=== PATIENT | female | born 1940 | race Caucasian/White ===

== ENCOUNTER 2019-01-08 09:11 | Inpatient (IN) | payer MEDICARE, BC ==
[~2019-01-08] VITALS: Ht 160 cm; Wt 79.0 kg
[2019-01-08] VITALS (7 sets, daily range): BP systolic 108–133; BP diastolic 53–70
[2019-01-08] MEDS: dilTIAZem INJ 125 MG in IV DEXTROSE 5% 100ML 100 ML IV PRN ×2 (09:44→20:26)
[2019-01-08] MEDS ORDERED: dilTIAZem IV PUSH 25 MG/5 ML VIAL IVP ONE (09:45)
--- NOTE | 2019-01-08 09:48 | PHYS DOC ---
Past Medical History Past Medical History: Other Additional Past Medical Histor: afib Past Surgical History: Other Additional Past Surgical Histo: bilat knees, cabg Alcohol Use: None Drug Use: None Adult General Chief Complaint Chief Complaint: SHORTNESS OF BREATH HPI HPI Patient is a 78-year-old female who presents with complaint of progressively increasing shortness of breath with palpitations, fatigue and generalized weakness. She also complains of dizziness. Patient does report to a history of atrial fibrillation. She denies any chest pain. She states the shortness of breath is worsened with exertion. She denies any fever but does admit to a cough that is sometimes productive. Patient's son indicates that cough sounds much more wet than usual. Patient states that nothing is improving symptoms.[] Review of Systems Review of Systems Constitutional: Denies fever or chills [] Respiratory: Positive cough and shortness of breath [] Cardiovascular: No additional information not addressed in HPI [] GI: Denies abdominal pain, nausea, vomiting or diarrhea [] Neurologic: Denies headache, focal weakness or sensory changes [] All other systems were reviewed and found to be within normal limits, except as documented in this note. Current Medications Current Medications Current Medications Medications (Trade) Dose Ordered Sig/Obdulio Start Time Stop Time Status Last Admin Dose Admin Diltiazem HCl (Cardizem Iv Push) 10 mg 1X ONCE 01/08/19 09:45 01/08/19 09:46 DC 01/08/19 09:38 10 MG Diltiazem HCl 125 mg/Dextrose 125 ml @ 5 mls/hr CONT PRN 01/08/19 09:45 01/08/19 09:44 5 MLS/HR Furosemide (Lasix) 40 mg 1X ONCE 01/08/19 11:00 01/08/19 11:01 DC Ketorolac Tromethamine (Toradol 30mg Vial) 30 mg 1X ONCE 01/08/19 10:30 01/08/19 10:31 DC 01/08/19 10:22 30 MG Allergies Allergies Allergies Coded Allergies Type Severity Reaction Last Updated Verified oxaprozin Allergy Intermediate itching 01/08/19 Yes tetanus and diphtheria toxoids Allergy Intermediate anaphalaxis 01/08/19 Yes Sulfa (Sulfonamide Antibiotics) Allergy Mild rash 01/08/19 Yes Physical Exam Physical Exam Constitutional: Well developed, well nourished, no acute distress, non-toxic appearance. [] HENT: Normocephalic, atraumatic, bilateral external ears normal, oropharynx moist, no oral exudates, nose normal. [] Eyes: PERRLA, EOMI, conjunctiva normal, no discharge. [] Neck: Normal range of motion, no tenderness, supple, no stridor. [] Cardiovascular: Tachycardic rate with irregular rhythm[] Lungs & Thorax: Fine rhonchi are noted bilaterally to auscultation [] Abdomen: Bowel sounds normal, soft, no tenderness. [] Skin: Warm, dry, no erythema, no rash. [] Extremities: No tenderness, no cyanosis, no clubbing, ROM intact, no edema. [] Neurologic: Alert and oriented X 3, no focal deficits noted. [] Current Patient Data Vital Signs Vital Signs Date Time Temp Pulse Resp B/P (MAP) Pulse Ox O2 Delivery O2 Flow Rate FiO2 01/08/19 10:52 92 18 98/64 (75) 92 Room Air 2.0 01/08/19 09:16 98.2 98.2 Lab Values Laboratory Tests Test 01/08/19 09:32 White Blood Count 5.7 x10^3/uL (4.0-11.0) Red Blood Count 4.78 x10^6/uL (3.50-5.40) Hemoglobin 13.9 g/dL (12.0-15.5) Hematocrit 42.6 % (36.0-47.0) Mean Corpuscular Volume 89 fL (79-100) Mean Corpuscular Hemoglobin 29 pg (25-35) Mean Corpuscular Hemoglobin Concent 33 g/dL (31-37) Red Cell Distribution Width 16.3 % (11.5-14.5) H Platelet Count 146 x10^3/uL (140-400) Neutrophils (%) (Auto) 54 % (31-73) Lymphocytes (%) (Auto) 33 % (24-48) Monocytes (%) (Auto) 10 % (0-9) H Eosinophils (%) (Auto) 2 % (0-3) Basophils (%) (Auto) 1 % (0-3) Neutrophils # (Auto) 3.1 x10^3/uL (1.8-7.7) Lymphocytes # (Auto) 1.9 x10^3/uL (1.0-4.8) Monocytes # (Auto) 0.6 x10^3/uL (0.0-1.1) Eosinophils # (Auto) 0.1 x10^3/uL (0.0-0.7) Basophils # (Auto) 0.1 x10^3/uL (0.0-0.2) Sodium Level 143 mmol/L (136-145) Potassium Level 4.5 mmol/L (3.5-5.1) Chloride Level 106 mmol/L (98-107) Carbon Dioxide Level 28 mmol/L (21-32) Anion Gap 9 (6-14) Blood Urea Nitrogen 25 mg/dL (7-20) H Creatinine 0.8 mg/dL (0.6-1.0) Estimated GFR (Cockcroft-Gault) 69.2 BUN/Creatinine Ratio 31 (6-20) H Glucose Level 161 mg/dL (70-99) H Calcium Level 9.8 mg/dL (8.5-10.1) Magnesium Level 1.9 mg/dL (1.8-2.4) Total Bilirubin 0.5 mg/dL (0.2-1.0) Aspartate Amino Transferase (AST) 48 U/L (15-37) H Alanine Aminotransferase (ALT) 68 U/L (14-59) H Alkaline Phosphatase 71 U/L (46-116) Troponin I Quantitative < 0.017 ng/mL (0.000-0.055) PQ-Vgg-P-Type Natriuretic Peptide 4010 pg/mL (0-449) H Total Protein 7.0 g/dL (6.4-8.2) Albumin 3.6 g/dL (3.4-5.0) Albumin/Globulin Ratio 1.1 (1.0-1.7) Thyroid Stimulating Hormone (TSH) 2.428 uIU/mL (0.358-3.74) Laboratory Tests 01/08/19 09:32 Laboratory Tests 01/08/19 09:32 EKG EKG [] Interpretation Time: EKG demonstrates atrial fibrillation with rate of 136. Radiology/Procedures Radiology/Procedures [] Impressions: PROCEDURE: PORTABLE CHEST 1V EXAM: Chest, single view. HISTORY: Palpitations. Shortness of breath. COMPARISON: None. FINDINGS: A frontal view of the chest is obtained. There is no infiltrate, pleural effusion or pneumothorax. There is a prominent cardiac silhouette, a component of which is due to portable technique. There is evidence of prior median sternotomy. There is incidental decreased right subacromial space due to a chronic right rotator cuff tear. IMPRESSION: No acute pulmonary finding. Electronically signed by: Wendy Chao MD (01/08/2019 9:48 AM) [facility] Course & Med Decision Making Course & Med Decision Making Pertinent Labs and Imaging studies reviewed. (See chart for details) [] Dragon Disclaimer Dragon Disclaimer This electronic medical record was generated, in whole or in part, using a voice recognition dictation system. Departure Departure Impression: Primary Impression: Atrial fibrillation with RVR Additional Impression: CHF (congestive heart failure) Disposition: ADMITTED INPATIENT Admitting Physician: Jeet Block Condition: IMPROVED Referrals: JEET BLOCK MD (PCP) Problem Qualifiers Additional Impression: CHF (congestive heart failure) Heart failure type: unspecified Heart failure chronicity: unspecified Qualified Codes: I50.9 - Heart failure, unspecified VERNELL GERMAIN Jr. DO Jan 08, 2019 09:48
[2019-01-08 09:50] LABS: BASO # 0.1 x10^3/uL (0.0-0.2); BASO % 1 % (0-3); EOS # 0.1 x10^3/uL (0.0-0.7); EOS % 2 % (0-3); HEMATOCRIT 42.6 % (36.0-47.0); HEMOGLOBIN 13.9 g/dL (12.0-15.5); LYMPH # 1.9 x10^3/uL (1.0-4.8); LYMPH % 33 % (24-48); MEAN CORPUSCULAR HEMOGLOBIN 29 pg (25-35); MEAN CORPUSCULAR HGB CONC 33 g/dL (31-37); MEAN CORPUSCULAR VOLUME 89 fL (79-100); MONO # 0.6 x10^3/uL (0.0-1.1); MONO % 10 % (0-9); NEUT # 3.1 x10^3/uL (1.8-7.7); NEUT % 54 % (31-73); PLATELET COUNT 146 x10^3/uL (140-400); RED BLOOD COUNT 4.78 x10^6/uL (3.50-5.40); RED CELL DISTRIBUTION WIDTH 16.3 % (11.5-14.5); WHITE BLOOD COUNT 5.7 x10^3/uL (4.0-11.0)
--- NOTE | 2019-01-08 09:51 | RAD ---
EXAM: Chest, single view. HISTORY: Palpitations. Shortness of breath. COMPARISON: None. FINDINGS: A frontal view of the chest is obtained. There is no infiltrate, pleural effusion or pneumothorax. There is a prominent cardiac silhouette, a component of which is due to portable technique. There is evidence of prior median sternotomy. There is incidental decreased right subacromial space due to a chronic right rotator cuff tear. IMPRESSION: No acute pulmonary finding. Electronically signed by: Wendy Chao MD (01/08/2019 9:48 AM) [facility]
[2019-01-08 10:06] LABS: CALCIUM 9.8 mg/dL (8.5-10.1); CREATININE 0.8 mg/dL (0.6-1.0); GFR 69.2; POTASSIUM 4.5 mmol/L (3.5-5.1)
[2019-01-08 10:10] LABS: ALBUMIN 3.6 g/dL (3.4-5.0); ALBUMIN/GLOBULIN RATIO 1.1 (1.0-1.7); MAGNESIUM 1.9 mg/dL (1.8-2.4); TOTAL BILIRUBIN 0.5 mg/dL (0.2-1.0)
[2019-01-08] MEDS ORDERED: KETOROLAC 30 MG/ML VIAL. IV ONE (10:30)
[2019-01-08] MEDS ORDERED: FUROSEMIDE 40 MG/4 ML VIAL. IVP ONE (11:00)
--- NOTE | 2019-01-08 11:39 | EKG ---
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
[2019-01-08] MEDS ORDERED: LIRA0.6P2 SQ (14:05)
[2019-01-08] MEDS: CYCLOBENZAPRINE 10 MG TABLET. PO PRN (18:30)
[2019-01-08] MEDS ORDERED: ANTI-COAG MONITOR BY PHARMACY. MC PRN (20:15)
[2019-01-08] MEDS ORDERED: HEPARIN 25,000UTS/500ML PREMIX 500 ML IV PRN (20:15)
[2019-01-08] MEDS ORDERED: HEPARIN for IV BOLUS 10,000 UNIT/10 ML VIAL. IV PRN (20:15)
[2019-01-09] VITALS (13 sets, daily range): BP systolic 90–119; BP diastolic 45–88
[2019-01-09 03:21] LABS: BASO # 0.1 x10^3/uL (0.0-0.2); BASO % 1 % (0-3); EOS # 0.2 x10^3/uL (0.0-0.7); EOS % 3 % (0-3); HEMATOCRIT 39.7 % (36.0-47.0); HEMOGLOBIN 12.8 g/dL (12.0-15.5); LYMPH # 1.6 x10^3/uL (1.0-4.8); LYMPH % 28 % (24-48); MEAN CORPUSCULAR HEMOGLOBIN 29 pg (25-35); MEAN CORPUSCULAR HGB CONC 32 g/dL (31-37); MEAN CORPUSCULAR VOLUME 90 fL (79-100); MONO # 0.6 x10^3/uL (0.0-1.1); MONO % 10 % (0-9); NEUT # 3.3 x10^3/uL (1.8-7.7); NEUT % 58 % (31-73); PLATELET COUNT 123 x10^3/uL (140-400); RED BLOOD COUNT 4.43 x10^6/uL (3.50-5.40); RED CELL DISTRIBUTION WIDTH 16.2 % (11.5-14.5); WHITE BLOOD COUNT 5.8 x10^3/uL (4.0-11.0)
[2019-01-09 04:37] LABS: CALCIUM 9.1 mg/dL (8.5-10.1); CREATININE 0.8 mg/dL (0.6-1.0); GFR 69.2; POTASSIUM 4.2 mmol/L (3.5-5.1)
--- NOTE | 2019-01-09 08:57 | PDOC ---
Provider Note Provider Note [id number] HILARIO JASSO MD Jan 09, 2019 08:57
--- NOTE | 2019-01-09 09:16 | HP ---
ADMIT DATE: CHIEF COMPLAINT: Atrial fibrillation. HISTORY OF PRESENT ILLNESS: A 78-year-old white female, patient of Dr. Arboleda has, noninsulin-dependent diabetes and history of recurrent atrial fibrillation, last episode about a month ago. She has seen Dr. Berry in the past and Dr. Ledezma once as well, but takes no meds of any kind for this problem. She has not been told the etiology of the atrial fibrillation and came in short of breath and is feeling better at this time. She has had an aortic valve replacement and a cardiac bypass 7 or 8 year ago at [facility], but does not take aspirin for some reason or any other cardiac meds. PAST MEDICAL HISTORY: Knee replacement. No other serious medical problems. ALLERGIES: SULFA LISTED. SOCIAL HISTORY: She denies alcohol use. Nonsmoker. She is . She is not physically active. FAMILY HISTORY: Unremarkable. REVIEW OF SYSTEMS: No other complaints. OBJECTIVE: ENT: All within normal limits. NECK: No masses, nodes or bruits. LUNGS: Clear. CARDIOVASCULAR: Irregular rate consistent with atrial fibrillation, rate is in the 90-120 range. No murmur is heard. ABDOMEN: Soft, benign and nontender. EXTREMITIES: Reduced pedal pulses bilaterally. No edema. Nail beds are pink. No active joint or skin lesions are seen. NEUROLOGIC: Physiologic and nonfocal. ASSESSMENT: Recurrent atrial fibrillation, rate controlled now with diltiazem. Etiology is unclear at this time. She also has a history of aortic valve replacement and coronary artery bypass surgery. Her TSH was normal. PLAN: We will do an echo. We will start Xarelto in place of heparin. Cardiac consultation pending as well. Continue IV diltiazem, pending the consideration of something like amiodarone. HILARIO JASSO MD DR: STEFANIE/pamela JOB#: [id number] / [id number]
--- NOTE | 2019-01-09 09:46 | PDOC2 ---
ROSE FERRARA [employer]KER 01/09/19 0946: CARDIAC CONSULT DATE OF CONSULT Date of Consult DATE: 01/09/19 TIME: 09:45 REASON FOR CONSULT Reason for Consult: AFIB with RVR, CHF REFERRING PHYSICIAN Referring Physician: Dr. Pratt SOURCE Source: Chart review, Patient HISTORY OF PRESENT ILLNESS HISTORY OF PRESENT ILLNESS This is a 78 yo female, with a history of PAFIB, CAD s/p CABG, aortic valve replacement, and DMII, who presented secondary to shortness of breath and palpitations. Patient reports she can generally tell when she is in AFIB. Has had intermittent palpitations for the last month. Has been constant for the last 3 days. Associated with shortness of breath, orthopnea. Was dizzy yesterday. No LE edema, chest pain, or nausea/vomiting. Has woke up diaphoretic the last couple of nights. Despite medical history, only takes Victoza at home. No rate control therapy, OAC, ASA, or statin. Was noted in AFIB with RVR upon arrival. Cardizem bolus and gtt was initiated. Remains in AFIB with controlled rate. PAST MEDICAL HISTORY Cardiovascular: AFIB, CAD, Hyperlipidemia, Valve insufficiency GI: GERD Musculoskeletal: Osteoarthritis Endocrine: Diabetes PAST SURGICAL HISTORY Past Surgical History: CABG, Total knee replacement (bilateral ), Other (aortic valve replacement ) FAMILY HISTORY Family History: Diabetes SOCIAL HISTORY Smoke: No ALCOHOL: rare Drugs: None Lives: with Family CURRENT MEDICATIONS CURRENT MEDICATIONS Current Medications Medications (Trade) Dose Ordered Sig/Obdulio Route PRN Reason Start Time Stop Time Status Last Admin Dose Admin Ketorolac Tromethamine (Toradol 30mg Vial) 30 mg 1X ONCE IV 01/08/19 10:30 01/08/19 10:31 DC 01/08/19 10:22 Furosemide (Lasix) 40 mg 1X ONCE IVP 01/08/19 11:00 01/08/19 11:01 DC 01/08/19 12:37 Cyclobenzaprine HCl (Flexeril) 5 mg PRN TID PRN PO MUSCLE SPASMS 01/08/19 18:30 01/08/19 18:30 Heparin Sodium/ Dextrose 500 ml @ 19.584 mls/ hr CONT PRN IV SEE COMMENTS 01/08/19 20:15 01/09/19 08:55 DC 01/08/19 20:54 Heparin Sodium (Porcine) (Heparin Sodium) 2,050 unit PRN Q6HRS PRN IV FOR UFH LEVEL LESS THAN 0.2 01/08/19 20:15 01/09/19 08:55 DC 01/09/19 03:41 ALLERGIES ALLERGIES: Coded Allergies: oxaprozin (Verified Allergy, Intermediate, itching, 01/08/19) tetanus and diphtheria toxoids (Verified Allergy, Intermediate, anaphalax is, 01/08/19) Sulfa (Sulfonamide Antibiotics) (Verified Allergy, Mild, rash, 01/08/19) ROS Review of System 14 point ROS conducted with pertinent positives noted above in HPI. PHYSICAL EXAM General: Alert, Oriented X3, Cooperative, No acute distress HEENT: Atraumatic, Mucous membr. moist/pink Lungs: Other (diminished ) Heart: Other (AFIB- rate near 90) Abdomen: Soft, No tenderness Extremities: No edema, Normal pulses Skin: No significant lesion Neuro: Sensation intact Psych/Mental Status: Mental status NL, Mood NL MUSCULOSKELETAL: Osteoarthritic changes both hands VITALS/I&O VITALS/I&O: Vital Signs Date Time Temp Pulse Resp B/P (MAP) Pulse Ox O2 Delivery O2 Flow Rate FiO2 01/09/19 07:52 97.5 92 20 115/56 (75) 92 Nasal Cannula 2.0 97.5 I & O 01/08/19 01/08/19 01/09/19 15:00 23:00 07:00 Intake Total 250 ml 416 ml Balance 250 ml 416 ml LABS Lab: Laboratory Tests Test 01/08/19 15:00 01/08/19 17:25 01/09/19 03:15 Troponin I Quantitative 0.017 ng/mL (0.000-0.055) < 0.017 ng/mL (0.000-0.055) White Blood Count 5.8 x10^3/uL (4.0-11.0) Red Blood Count 4.43 x10^6/uL (3.50-5.40) Hemoglobin 12.8 g/dL (12.0-15.5) Hematocrit 39.7 % (36.0-47.0) Mean Corpuscular Volume 90 fL (79-100) Mean Corpuscular Hemoglobin 29 pg (25-35) Mean Corpuscular Hemoglobin Concent 32 g/dL (31-37) Red Cell Distribution Width 16.2 % (11.5-14.5) H Platelet Count 123 x10^3/uL (140-400) L Neutrophils (%) (Auto) 58 % (31-73) Lymphocytes (%) (Auto) 28 % (24-48) Monocytes (%) (Auto) 10 % (0-9) H Eosinophils (%) (Auto) 3 % (0-3) Basophils (%) (Auto) 1 % (0-3) Neutrophils # (Auto) 3.3 x10^3/uL (1.8-7.7) Lymphocytes # (Auto) 1.6 x10^3/uL (1.0-4.8) Monocytes # (Auto) 0.6 x10^3/uL (0.0-1.1) Eosinophils # (Auto) 0.2 x10^3/uL (0.0-0.7) Basophils # (Auto) 0.1 x10^3/uL (0.0-0.2) Heparin Anti-Xa Act, Unfractionated 0.16 IU/mL (0.30-0.70) L Sodium Level 142 mmol/L (136-145) Potassium Level 4.2 mmol/L (3.5-5.1) Chloride Level 106 mmol/L (98-107) Carbon Dioxide Level 28 mmol/L (21-32) Anion Gap 8 (6-14) Blood Urea Nitrogen 29 mg/dL (7-20) H Creatinine 0.8 mg/dL (0.6-1.0) Estimated GFR (Cockcroft-Gault) 69.2 Glucose Level 168 mg/dL (70-99) H Calcium Level 9.1 mg/dL (8.5-10.1) Laboratory Tests 01/09/19 03:15 Laboratory Tests 01/09/19 03:15 ECHOCARDIOGRAM ECHOCARDIOGRAM <Conclusion> Technically difficult study. The left ventricle is normal size. The left ventricular systolic function is normal and the ejection fraction is within normal range. The Ejection Fraction is 55-60%. There is mild asymmetric left ventricular hypertrophy. Calculated aortic valve maximum pressure gradient of 41 mmHg and mean pressure gradient of 23 mmHg. Doppler and Color Flow revealed mild aortic regurgitation. Technically difficult study with the patient's prosthetic aortic valve functioning with mild to moderate stenosis. Doppler and Color Flow revealed mild mitral regurgitation. Doppler and Color Flow revealed mild tricuspid regurgitation. The PA pressure was estimated at 30 mmHg. DATE: 10/23/15 1507 STRESS TEST STRESS TEST Conclusion 1. Regadenoson cardioisotope stress test did not show any evidence of ischemia or infarct. 2. Normal left ventricular systolic function with ejection fraction calculated at 70%. 3. Low risk for cardiac events. DATE: 10/24/15 1219 ASSESSMENT/PLAN ASSESSMENT/PLAN 1. PAFIB with RVR; remains in AFIB, but rate controlled on Cardizem gtt. Xarelto for stroke prevention added 2. Mild acute probable diastolic HF secondary to RVR 3. CAD s/p CABG 2008. MPI 2015 without evidence of ischemia or infarct 4. S/p Aortic valve replacement; bioprosthetic 5. Hyperlipidemia 6. Diabetes, II Recommendations Echo to assess LV systolic function, assess aortic valve TSH, lipids Add metoprolol for rate control. Titrate off Cardizem gtt Xarelto for stroke prevention Consider NAYANA with CV. R/b/a discussed with patient and she is agreeable. Will d/w primary cardiology Will start Amiodarone for rhythm maintenance; short-term therapy JOHNATHAN PURCELL MD 01/09/19 1644: CARDIAC CONSULT ASSESSMENT/PLAN ASSESSMENT/PLAN Pt. seen and examined. Agree with above VICE PRESIDENT OF PROCUREMENT note. Discussed r/b/a to NAYANA/CVN, patient and family wish to proceed. Still hypoxic. Check ABG. Lasix for now. ROSE FERRARA APRN Jan 09, 2019 09:46 JOHNATHAN PURCELL MD Jan 09, 2019 16:44
[2019-01-09 10:15] LABS: CHOLESTEROL/HDL RATIO 3.5
--- NOTE | 2019-01-09 12:08 | NUR ---
SS following for discharge planning. SS reviewed pt chart. Pt is from home with spouse and is currently requiring oxygen. SS will continue to follow for discharge planning.
[2019-01-09] MEDS: RIVAROXABAN 10 MG TABLET. PO SCH (12:41)
[2019-01-09] MEDS: METOPROLOL TART IMMED RELEASE 25 MG TABLET. PO SCH ×2 (12:41→20:12)
[2019-01-09] MEDS ORDERED: LIDOCAINE 2% TOPICAL JELLY 5GM TUBE. TP ONE (16:30)
[2019-01-09] MEDS ORDERED: BENZOCAINE ONE 20% MUCOSAL SPRAY. MM (16:30)
[2019-01-09] MEDS ORDERED: 0.9 % SODIUM CHLORIDE 10 ML DISP.SYRIN. IV PRN ×2 (16:30)
[2019-01-09] MEDS ORDERED: FUROSEMIDE 40 MG/4 ML VIAL. IVP ONE (16:30)
[2019-01-09] MEDS ORDERED: LIDOCAINE 2% VISCOUS 15 ML SOLUTION. MM ONE (16:30)
[2019-01-09] MEDS ORDERED: AMIODARONE 900 MG in IV DEXTROSE 5% 500 ML IV PRN (16:30)
[2019-01-09] MEDS ORDERED: AMIODARONE 150 MG in IV DEXTROSE 5% 100ML 100 ML IV ONE (17:00)
[2019-01-09 17:07] LABS: BASE EXCESS ABG 2 mmol/L (-3-3); HCO3 ABG 26 mmol/L (21-28); PCO2 ABG 40 mmHg (35-46); PO2 ABG 56 mmHg (65-108); SAT O2 ABG 89 % (92-99)
[2019-01-09 17:09] LABS: FIO2 ABG 28
[2019-01-09] MEDS: TEMAZEPAM 15 MG CAPSULE PO PRN (20:11)
[2019-01-10] VITALS (8 sets, daily range): BP systolic 92–132; BP diastolic 38–70
[2019-01-10 00:10] LABS: HEMOGLOBIN A1C 6.6 % (4.8-5.6)
[2019-01-10] MEDS ORDERED: LIDOCAINE 2% TOPICAL JELLY 5GM TUBE. TP ONE ×2 (07:30→10:30)
[2019-01-10] MEDS ORDERED: LIDOCAINE 2% VISCOUS 15 ML SOLUTION. SWSW ONE (07:30)
[2019-01-10] MEDS ORDERED: BENZOCAINE ONE 20% MUCOSAL SPRAY. MM ×2 (07:30→10:30)
[2019-01-10] MEDS ORDERED: FLU VAX QS 2019-20 (36MOS+)/PF 0.5 ML SYRINGE. VAX IM ONE (08:00)
[2019-01-10] MEDS: METOPROLOL TART IMMED RELEASE 25 MG TABLET. PO SCH ×2 (08:26→21:19)
--- NOTE | 2019-01-10 08:59 | PDOC ---
Provider Note Provider Note still af w/ variable rate- on amio and metradha, xarelto now- for willis /poss cardioversiion today HILARIO JASSO MD Jan 10, 2019 08:59
--- NOTE | 2019-01-10 09:20 | CARD ---
MR#: [id number] Date of Study: 01/09/2019 Ordering Physician: HILARIO AJSSO, Referring Physician: HILARIO JASSO, Tech: Izzy Bearden APPROVED REPORT EXAM: Two-dimensional and M-mode echocardiogram with Doppler and color Doppler. Other Information Quality : FairHR: 82bpm INDICATION Dyspnea Atrial Fibrillation Chest Pain RISK FACTORS Hypertension 2D DIMENSIONS RVDd3.9 (2.9-3.5cm)Left Atrium(2D)4.8 (1.6-4.0cm) IVSd1.8 (0.7-1.1cm)Aortic Root(2D)3.5 (2.0-3.7cm) LVDd4.8 (3.9-5.9cm)LVOT Diameter2.0 (1.8-2.4cm) PWd1.4 (0.7-1.1cm)LVDs3.8 (2.5-4.0cm) FS (%) 21.0 %SV44.8 ml Aortic Valve AoV Peak Akbar.257.4cm/sAoV VTI46.4cm AO Peak GR.26.5mmHgLVOT VTI 12.60cm AO Mean GR.15mmHgAI P 1/2 [id number] TDI Lateral E' P. V8.56cm/sMedial E' P. V4.89cm/s Tricuspid Valve TR P. Okryqrxn315vi/sRAP [id number] TR Peak Gr.55acXxGAFP69ulGi Pulmonary Vein S2 Tfmggimc21.22cm/sD2 Rbcwavno79.2cm/s LEFT VENTRICLE The left ventricle is normal size. There is moderate concentric left ventricular hypertrophy. The lef t ventricular systolic function is normal. The Ejection Fraction is 55%. There is normal LV segmental wall motion. Diastology indeterminate due to atrial fibrillaion. RIGHT VENTRICLE The right ventricle is normal size. There is normal right ventricular wall thickness. The right ventr icular systolic function is normal. ATRIA The left atrium is mildly dilated. The right atrium size is normal. The interatrial septum is intact with no evidence for an atrial septal defect or patent foramen ovale as noted on 2-D or Doppler imagi ng. AORTIC VALVE Doppler and Color Flow revealed mild aortic regurgitation. Maximum pressure gradient of 27 mmHg and m dallin pressure gradient of 15 mmHg. Bioprosthetic aortic valve well seated and functioning well. MITRAL VALVE The mitral valve is moderately thickened. There is no evidence of mitral valve prolapse. There is no mitral valve stenosis. Doppler and Color-flow revealed trace mitral regurgitation. TRICUSPID VALVE The tricuspid valve is normal in structure and function. Doppler and Color Flow revealed trace tricus pid regurgitation with an estimated PAP of 42 mmHg. There is mild pulmonary hypertension. There is no tricuspid valve stenosis. PULMONIC VALVE The pulmonic valve is not well visualized. Doppler and Color Flow revealed trace pulmonic valvular re gurgitation. GREAT VESSELS The aortic root is normal in size. The IVC is dilated and collapses >50% with inspiration. PERICARDIAL EFFUSION There is no evidence of significant pericardial effusion. Critical Notification Critical Value: No <Conclusion> The left ventricular systolic function is normal. The Ejection Fraction is 55%. There is normal LV segmental wall motion. Bioprosthetic aortic valve well seated and functioning well. Mean pressure gradient of 15 mmHg. Mild aortic regurgitation. Trace mitral regurgitation. Trace tricuspid regurgitation with an estimated PAP of 42 mmHg. There is no evidence of significant pericardial effusion. Signed by : Vimal Lopez, Electronically Approved : 01/10/2019 09:20:18
[2019-01-10] MEDS ORDERED: LIDOCAINE 2% VISCOUS 15 ML SOLUTION. MM ONE (10:30)
[2019-01-10] MEDS ORDERED: PROPOFOL 20 ML IV ONE (10:33)
--- NOTE | 2019-01-10 12:20 | EKG ---
[facility] [address] [place] [address] Test Date: 2019-01-10 Test Time: 12:12:24 Pat Name: ROSALINE JOVEL Department: Room: 204 1 Gender: F District Home [employer] Agent: CATARINO : 1940 Requested By: JOHNATHAN PURCELL Order Number: [id number] Reading MD: Johnathan Purecll MD Measurements Intervals [place] Rate: 59 P: 28 [place]: 156 QRS: -11 QRSD: 152 T: 140 QT: 480 QTc: 480 Interpretive Statements SINUS RHYTHM LBBB Electronically Signed On 01-18-2019 10:03:19 CDT by Johnathan Purcell MD
[2019-01-10] MEDS ORDERED: IV RINGERS,LACTATED 1000ML 1,000 ML IV SCH (12:45)
--- NOTE | 2019-01-10 14:40 | CARD ---
MR#: [id number] Date of Study: 01/10/2019 Ordering Physician: JOHNATHAN LEDEZMA, Referring Physician: JOHNATHAN LEDEZMA, Tech: Izzy Bearden APPROVED REPORT EXAM: Transesophageal echocardiogram with color flow Doppler and Synchronized Cardioversion. INDICATION Congestive Heart Failure Reason For Test : Rule out Intracardiac Thrombus. PROCEDURE After obtaining informed consent, patient underwent transesophageal echo in the PACU. Type of Sedation : General Anesthesia Sedation was administered by Marvin Washington CRNA. Sedation was achieved with Propofol 50mg intravenously. Transesophageal probe was inserted and advanced into esophagus by Beny Ledezma MD. The NAYANA was performed without complications. Synchronized Cardioversion attempted: Successful Throughout the procedure, the blood pressure, pulse oximetry, cardiac rhythm, and rate were monitored . The patient tolerated the procedure without adverse effects. Recovery from general anesthesia was une ventful and vital signs were stable. LEFT VENTRICLE The left ventricle is normal size. There is moderate concentric left ventricular hypertrophy. The sys tolic function is moderately impaired. EF 40% Mild to moderate global hypokinesis. Limited images as probe had to be removed early due to respiratory distress. Diastology not performed. RIGHT VENTRICLE The right ventricle is normal size. There is normal right ventricular wall thickness. The right ventr icular systolic function is normal. ATRIA The left atrium is mildly dilated. The right atrium size is normal. There is no thrombus noted in the left atrial appendage. AORTIC VALVE The aortic annulus is calcified. Cannot rule out bioprosthetic valve. Doppler and Color Flow revealed mild aortic regurgitation. There is no significant aortic valvular stenosis. MITRAL VALVE The mitral valve is mildly thickened. There is no evidence of mitral valve prolapse. There is no mitr al valve stenosis. Doppler and Color-flow revealed trace mitral regurgitation. TRICUSPID VALVE The tricuspid valve is normal in structure and function. Doppler and Color Flow revealed trace tricus pid regurgitation. There is no tricuspid valve prolapse or vegetation. There is no tricuspid valve st enosis. PULMONIC VALVE The pulmonic valve is not well visualized. GREAT VESSELS The aortic root is normal in size. The IVC is normal in size and collapses >50% with inspiration. PERICARDIAL EFFUSION There is no pleural effusion. Critical Notification Critical Value: No <Conclusion> The systolic function is moderately impaired. EF 40% Mild to moderate global hypokinesis. Limited images as probe had to be removed early due to respirato ry distress. There is no thrombus noted in the left atrial appendage. The aortic annulus is calcified. Cannot rule out bioprosthetic valve. There is no significant aortic valvular stenosis. Successful CVN to SR. Signed by : Johnathan Ledezma, Electronically Approved : 01/10/2019 14:39:44
--- NOTE | 2019-01-10 15:24 | NUR ---
SS following up with discharge planning. PT recommended home with outpatient. SS will continue to follow for discharge planning.
[2019-01-10] MEDS: RIVAROXABAN 10 MG TABLET. PO SCH (17:06)
[2019-01-10] MEDS ORDERED: AMIODARONE HCL 200 MG TABLET. PO ONE (17:15)
[2019-01-10] MEDS: TEMAZEPAM 15 MG CAPSULE PO PRN (22:31)
--- NOTE | 2019-01-11 01:31 | NUR ---
Change of care note: Pt in bed asleep report given to Bia Chavez
[2019-01-11 03:00] VITALS: BP 116/47
[2019-01-11 04:15] LABS: HEMATOCRIT 38.3 % (36.0-47.0); HEMOGLOBIN 12.4 g/dL (12.0-15.5); RED BLOOD COUNT 4.25 x10^6/uL (3.50-5.40); RED CELL DISTRIBUTION WIDTH 16.5 % (11.5-14.5); WHITE BLOOD COUNT 5.9 x10^3/uL (4.0-11.0)
[2019-01-11 07:12] VITALS: BP 110/52
[2019-01-11] MEDS: AMIODARONE HCL 200 MG TABLET. PO SCH (08:48)
[2019-01-11] MEDS: METOPROLOL TART IMMED RELEASE 25 MG TABLET. PO SCH ×2 (08:49→20:18)
--- NOTE | 2019-01-11 09:02 | PDOC ---
Provider Note Provider Note back in nsr, good rate, but still hypoxic, no dyspnea- ? pre existing but never a smoker- cxr clear, will do ct chest/ 6 min walk- meds same HILARIO JASSO MD Jan 11, 2019 09:02
[2019-01-11] MEDS ORDERED: IOHEXOL 300 MG/ML 100ML VIAL. IV ONE (09:30)
[2019-01-11] MEDS ORDERED: CONTRAST GIVEN. MC PRN (09:30)
[2019-01-11 10:35] VITALS: BP 120/56
--- NOTE | 2019-01-11 11:33 | PDOC ---
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 01/11/19 1133: CARDIO Progress Notes Date and Time Date of Service 01/11/19 Time of Evaluation 1120 Subjective Subjective: No Chest Pain, No shortness of breath, No Palpitations Vitals Vitals Vital Signs Date Time Temp Pulse Resp B/P (MAP) Pulse Ox O2 Delivery O2 Flow Rate FiO2 01/11/19 10:35 98.7 57 20 120/56 (77) 91 Nasal Cannula 3.0 98.7 Weight Weight [ ] Input and Output Intake and Output Intake and Output 01/11/19 06:59 Intake Total 1164 ml Output Total 300 ml Balance 864 ml Intake Oral 814 ml IV Total 350 ml Output Urine Total 300 ml # Voids 6 Laboratory Labs Laboratory Tests Test 01/11/19 03:50 White Blood Count 5.9 x10^3/uL (4.0-11.0) Red Blood Count 4.25 x10^6/uL (3.50-5.40) Hemoglobin 12.4 g/dL (12.0-15.5) Hematocrit 38.3 % (36.0-47.0) Mean Corpuscular Volume 90 fL (79-100) Mean Corpuscular Hemoglobin 29 pg (25-35) Mean Corpuscular Hemoglobin Concent 32 g/dL (31-37) Red Cell Distribution Width 16.5 % (11.5-14.5) Platelet Count 122 x10^3/uL (140-400) Microbiology Micro Microbiology 01/08/19 Blood Culture - Preliminary, Resulted NO GROWTH AFTER 2 DAYS Physical Exam HEENT: Neck Supple W Full Motion Chest: Symmetric LUNGS: Clear to Auscultation, Other (diminished bases) Heart: S1S2, RRR, murmurs (2/6 systolic murmur ) Abdomen: Soft N/T Extremities: No Edema Neurology: alert, oriented, follow commands Assessment Assessment 1. PAFIB with RVR; S/p CV. Maintaining SR 2. Mild acute probable diastolic HF secondary to RVR 3. CAD s/p CABG 2008. MPI 2015 without evidence of ischemia or infarct. Echo with preserved LV systolic function 4. S/p Aortic valve replacement; bioprosthetic; valve well seated and functioning well 5. Hyperlipidemia; LDL 72 6. Diabetes, II; hgb A1C 6.6 7. ? COPD. Remains mildly hypoxic. CT chest pending. 6 min walk today Recommendations Continue metoprolol for rate control. Xarelto for stroke prevention Continue Amiodarone for rhythm maintenance; short-term therapy for 2 months Follow up with our office with Dr. Ledezma as scheduled JOHNATHAN LEDEZMA MD 01/11/19 1750: CARDIO Progress Notes Plan Plan (1) ALEMROSE MARIA ESTHER Jan 11, 2019 11:33 JOHNATHAN LEDEZMA MD Jan 11, 2019 17:50 1: Pt. seen and examined. 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 Current in SR. Tolerating meds well. Remains hypoxic CT chest reviewed. Will plan for lasix. If no improvement, may need to consider pulm eval in next 24 to 48 hours Thanks.
[2019-01-11 14:33] VITALS: BP 152/45
--- NOTE | 2019-01-11 16:41 | RAD ---
CT CHEST W/CONTRAST History: Hypoxia Technique: CT of the chest was performed with contrast. Coronal and sagittal reconstructions were performed. Exposure: One or more of the following individualized dose reduction techniques were utilized for this examination: 1. Automated exposure control 2. Adjustment of the mA and/or kV according to patient size 3. Use of iterative reconstruction technique. Comparison: None Findings: Chest: Several enlarged mediastinal lymph nodes right paratracheal lymph node measures 1.4 x 1.0 cm. Precarinal lymph node measures 1.8 x 1.7 cm. Mildly enlarged hilar lymph nodes. Right hilar lymph node measures 1.2 x 0.9 cm. Coronary artery calcifications. Small hiatal hernia. Small bilateral pleural effusions with adjacent atelectasis. Mild septal thickening bilaterally. Scattered groundglass opacities. Right middle lobe and lingular subsegmental atelectasis or scarring. Calcified left upper lobe pulmonary nodule. Punctate 2 mm right lower lobe pulmonary nodule (image #[id number]). 3 mm left lower lobe pulmonary nodule (image #28). Focal outpouching of the left ventricular apex. Upper abdomen: Anterior upper abdominal mesh repair. Narrowing of the celiac artery origin due to calcified plaque. Narrowing of the bilateral renal artery origins due to calcified plaque. Patent superior mesenteric artery. Bones: Multilevel thoracic spondylosis most prominent T11-T12. Impression: 1. Mild septal thickening and groundglass opacities, may represent early pulmonary edema. 2. Small bilateral pleural effusions with adjacent atelectasis. 3. Small focal outpouching of the left ventricular apex. Recommend correlation with transesophageal echo. 4. Mediastinal and hilar lymphadenopathy, likely reactive. Recommend follow-up to ensure resolution. 5. Small pulmonary nodules. Recommend comparison with prior imaging studies. If prior imaging studies are not available and the patient is high risk, recommend one-year follow-up. 6. Atheromatous calcifications contributing to narrowing of the celiac and renal artery origins. Electronically signed by: Favio Reyes DO (01/11/2019 4:38 PM) [id number]
[2019-01-11] MEDS ORDERED: FUROSEMIDE 40 MG/4 ML VIAL. IVP ONE (18:00)
[2019-01-11] MEDS: RIVAROXABAN 10 MG TABLET. PO SCH (18:10)
[2019-01-11 19:41] VITALS: BP 124/61
[2019-01-11] MEDS: CYCLOBENZAPRINE 10 MG TABLET. PO PRN (20:18)
[2019-01-11] MEDS: TEMAZEPAM 15 MG CAPSULE PO PRN (20:18)
[2019-01-11 22:54] VITALS: BP 116/58
[2019-01-12 02:55] VITALS: BP 100/48
[2019-01-12 07:00] VITALS: BP 110/43
--- NOTE | 2019-01-12 08:56 | PDOC ---
Provider Note Provider Note [id number] HILARIO JASSO MD Jan 12, 2019 08:56
--- NOTE | 2019-01-12 09:02 | SNU/HH DC ---
DISCHARGE WITH HOME HEALTH DISCHARGE INFORMATION: Final Diagnosis: Problems Medical Problems: (1) Atrial fibrillation with RVR Status: Acute (2) CHF (congestive heart failure) Status: Acute Condition on Discharge: Stable CODE STATUS: Code Status: Full HOME HEALTH: Face to Face: I certify this patient is under my care and that I, or a nurse practitioner or physician's assistant professor of mathematics working with me, had a face to face encounter that meets the physician face to face encounter requirements with this patient on []. RN For Eval/Treatment: Yes Physical Therapy For: Evalulation/Treatment Pt Meets Homebound Status: Fatigue w/ amb. POST DISCHARGE ORDERS: DIET AFTER DISCHARGE: ADA CERTIFICATION STATEMENT: Certification Statement: Certification Statement: Based on the above finding, I certify that this patient is confined to the home and needs intermittent snf care, physical therapy and/or speech therapy, or continues to need occupational therapy.~ This patient is under my care, and I have initiated the establishment of the plan of care.~ This patient will be followed by myself or a community physician who will periodically review the plan of care. Home Meds Reported Medications Liraglutide (VICTOZA 3-SOLO) 0.6 Mg/0.1 Ml Pen.injctr, 1.8 MG SQ DAILY for dm, #9 ML 3 Refills 01/08/19 HILARIO JASSO MD Jan 12, 2019 09:01
[2019-01-12] MEDS: AMIODARONE HCL 200 MG TABLET. PO SCH (09:27)
[2019-01-12] MEDS: METOPROLOL TART IMMED RELEASE 25 MG TABLET. PO SCH (09:27)
[2019-01-12] MEDS ORDERED: RIVA10TA PO (09:44)
[2019-01-12] MEDS ORDERED: METO25TA4 PO (09:44)
[2019-01-12] MEDS ORDERED: AMIO200T4 PO (09:44)
--- NOTE | 2019-01-12 09:55 | PDOC ---
ROSE FERRARA APRN 01/12/19 0955: CARDIO Progress Notes Date and Time Date of Service 01/12/19 Time of Evaluation 0915 Subjective Subjective: No Chest Pain, No shortness of breath, No Palpitations Vitals Vitals Vital Signs Date Time Temp Pulse Resp B/P (MAP) Pulse Ox O2 Delivery O2 Flow Rate FiO2 01/12/19 09:27 57 01/12/19 07:00 98.1 18 110/43 (65) 96 Nasal Cannula 3.0 98.1 Weight Weight [ ] Input and Output Intake and Output Intake and Output 01/12/19 07:00 Intake Total 700 ml Output Total 3600 ml Balance -2900 ml Intake Oral 700 ml Output Urine Total 3600 ml # Bowel Movements 1 Microbiology Micro Microbiology 01/08/19 Blood Culture - Preliminary, Resulted NO GROWTH AFTER 3 DAYS Physical Exam HEENT: Neck Supple W Full Motion Chest: Symmetric LUNGS: Clear to Auscultation, Other (diminished bases) Heart: S1S2, RRR, murmurs (2/6 systolic murmur ) Abdomen: Soft N/T Extremities: No Edema Neurology: alert, oriented, follow commands Assessment Assessment 1. PAFIB; S/p CV. Maintaining SR/SB. Lowest 41 this morning. No pauses. 2. Mild acute probable diastolic HF; good UOP with IV Lasix. Still requiring 3L at rest. 3. CAD s/p CABG 2008. MPI 2015 without evidence of ischemia or infarct. Echo with preserved LV systolic function 4. S/p Aortic valve replacement; bioprosthetic; valve well seated and functioning well 5. Hyperlipidemia; LDL 72 6. Diabetes, II 7. Hypoxia; 6 min walk complete; 3L at rest and 4L with exertion recommended. Recommendations Recheck BMP, Mg Decrease metoprolol to 12.5mg Continue Xarelto for stroke prevention Short-term Amiodarone therapy Recommend pulmonary eval Consider outpatient ischemic evaluation JOHNATHAN PURCELL MD 01/12/19 [id number]: CARDIO Progress Notes Plan Plan (1) ROSE FERRARA APRN Jan 12, 2019 09:55 JOHNATHAN PURCELL MD Jan 12, 2019 17:53 1: Patient seen and examined. Agree with above nurse practitioner note. Her hypoxia has resolved after aggressive diuresis. I've asked her to keep a close eye on her weights. She will monitor her fluid intake and output. Plan for close evaluation the office in the near future. Continue anticoagulation as noted above.
--- NOTE | 2019-01-12 10:39 | NUR ---
SS following up with discharge planning. Discharge orders received with script for oxygen. SS phoned and faxed script and referral to [facility], ; fax [phone]. [facility] confirmed receipt of order. SS provided pt's RN with oxygen tank for home. SS met with pt and discussed home healthcare. Pt declined home healthcare at this time and stated that it was not needed. Pt's RN notified.
--- NOTE | 2019-01-12 10:51 | DS ---
DATE OF DISCHARGE: 01/12/2019 HOSPITAL SUMMARY: A 78-year-old white female who came in with atrial fibrillation and rapid ventricular response. Laboratory study showed a normal CBC and chemistry profile and troponins and her hemoglobin A1c was well controlled at 6.6. TSH was normal. Cholesterol was low at 120 and a chest x-ray was clear. Echocardiogram showed no significant valvular abnormalities and transesophageal echo showed no clots. She received IV diltiazem for rate control and then oral Xarelto after initial heparin and had a cardioversion after NAYANA was done with good result and remains in sinus rhythm. Amiodarone was added prior to the cardioversion and remains on board. Her 6-minute walk showed that she did desaturate and does need home oxygen and this will be ordered for her and likely was preexisting to this admission, but she has no pulmonary history. A CT scan of the chest showed very mild adenopathy and pleural effusions with nothing significant present. FINAL DIAGNOSES: 1. Atrial fibrillation with rapid ventricular response. 2. Chronic hypoxia, etiology undetermined. OPERATIONS AND PROCEDURES: Transesophageal echocardiogram, electrical cardioversion. COMPLICATIONS: None. CONSULTATIONS: Dr. Ledezma's group. DISPOSITION: Dr. ____ will have her on amiodarone 200 mg daily, metoprolol 25 mg twice a day and Xarelto 20 mg daily from now on pending clinical result. Home oxygen will be ordered as well. Home meds remain the same. Follow up with Dr. Ledezma in 2 weeks, Dr. Smyth as scheduled. HILARIO JASSO MD DR: STEFANIE/pamela JOB#: [id number] / [id number]
[2019-01-12 11:23] VITALS: BP 118/56
[2019-01-12] MEDS ORDERED: FUROSEMIDE 40 MG/4 ML VIAL. IVP ONE (11:30)
--- NOTE | 2019-01-12 11:56 | CONS ---
DATE OF CONSULTATION: 01/12/2019 PULMONARY CONSULTATION REASON FOR CONSULTATION: Hypoxia. ATTENDING PHYSICIAN: Trev Glover MD HISTORY OF PRESENT ILLNESS: The patient is a 78-year-old female, who has no history of tobacco use. She has history of paroxysmal atrial fibrillation, history of CAD, status post CABG and aortic valve replacement. She came into the hospital with AFib with RVR. She was having some shortness of breath and some palpitations. The patient felt dizzy as well. No chest pain. No headaches. No nausea, vomiting or diarrhea. She takes Victoza at home. She was noted to be in AFib with RVR and she was with Cardizem and she underwent a CT chest, which was reviewed by me, done yesterday. She had mild septal thickening and ground-glass opacities, suggesting early interstitial edema, small bilateral pleural effusions as well. She also has small focal outpouching of the left ventricular apex and likely reactive mild mediastinal and hilar adenopathy. There were very faint tiny nodules, which are reported by radiologist. I was not impressed by it and it appeared to be vascular shadows. She required 3 liters of oxygen based on a 6-minute walk test yesterday and I have been asked to see her for further evaluation. She is not a smoker and no weight loss. No hemoptysis. No history of known cancers. PAST MEDICAL HISTORY: AFib, CAD, hyperlipidemia, aortic valve replacement, GERD, osteoarthritis and diabetes. SURGERIES: CABG, total knee replacement and aortic valve replacement. FAMILY HISTORY: Diabetes. SOCIAL HISTORY: Nonsmoker. ALLERGIES: SULFA, OXAPROZIN, TETANUS AND DIPHTHERIA TOXOIDS. MEDICATIONS: Reviewed as listed in the [facility], including Xarelto and amiodarone. PHYSICAL EXAMINATION: VITAL SIGNS: Reviewed. Blood pressure is stable, pulse ox 96% on 3 liters, afebrile. HEENT: Sclerae nonicteric. NECK: Supple. LUNGS: With faint crackles at the bases. CARDIOVASCULAR: With a regular rate. ABDOMEN: Soft, nontender. EXTREMITIES: With trace pitting edema. LABORATORY DATA: Reviewed. White cell count 5.9, hemoglobin 12.4 and platelets are 122. ABGs with a pH of 7.4, pCO2 of 40 and a pO2 of 56 on 28% oxygen. IMPRESSION: 1. Acute hypoxic respiratory failure secondary to acute on chronic diastolic heart failure triggered by atrial fibrillation with rapid ventricular response. 2. Abnormal CT chest with mild ground-glass infiltrates and bilateral pleural effusions. Tiny nonspecific nodules were reported by radiologist. I felt that they were mostly vascular shadows. She is a lifetime nonsmoker. The CT chest findings are more favoring congestive heart failure and unlikely amiodarone pneumonitis. 3. No significant tobacco history. 4. Atrial fibrillation with rapid ventricular response, now under controlled rate. RECOMMENDATIONS: 1. We will give another extra dose of Lasix. 2. See the response to IV diuresis and may have to repeat another 6-minute walk test today. Hopefully, her oxygen needs will be improved. 3. Continue anticoagulation per PCP. 4. Close followup on her pulmonary status while the patient is on amiodarone. Maybe a followup CT chest in 4-6 months would be reasonable. 5. Follow Cardiology recommendation. 6. Discussed with RN. We will follow along with you. The patient is likely going to be discharged today. GILA RFANK MD DR: KELLI/nts JOB#: [id number] / [id number]
[2019-01-12 12:27] LABS: CALCIUM 9.4 mg/dL (8.5-10.1); CREATININE 0.8 mg/dL (0.6-1.0); GFR 69.2; MAGNESIUM 2.1 mg/dL (1.8-2.4); POTASSIUM 4.4 mmol/L (3.5-5.1)
[2019-01-12 14:56] VITALS: BP 131/73
--- NOTE | 2019-01-12 15:00 | NUR ---
After patient received 2nd dose of IV Lasix, she urinated approximately 700 cc's of urine. As per pulmonlogy, 6 min walk was reassessed and patient no longer required home O2 as previously prescribed. Ok per cardiology and pulmonology for patient to discharge home on room air
--- NOTE | 2019-01-12 16:13 | NUR ---
Discharge Note: ROSALINE JOVEL Discharge instructions and discharge home medications reviewed with Patient and a copy given. All questions have been answered and understanding verbalized. The following instructions and handouts were given: written prescriptions, follow up appointment, discharge instructions, Afib education Discontinued lines and drains: right hand dressing applied, clean, dry and intact. Patient discharged to home with spouse via wheelchair
[2019-01-12] MEDS ORDERED: METOPROLOL TART IMMED RELEASE 25 MG TABLET. PO SCH (21:00)
== END 2019-01-12 16:10 | disposition home or self-care (01) | DRG 308 ==
LOC: ER 09:11 → 2 NORTH 11:43
PROVIDERS: ADMIT Family Medicine; ATTEND Family Medicine
PROC: 5A2204Z Restoration of Cardiac Rhythm, Single (ICD-10-PCS; principal; 2019-01-10)
DX: I48.91 Unspecified atrial fibrillation (principal); J96.01 Acute respiratory failure with hypoxia; I50.33 Acute on chronic diastolic (congestive) heart failure; M19.90 Unspecified osteoarthritis, unspecified site; Z96.653 Presence of artificial knee joint, bilateral; E11.9 Type 2 diabetes mellitus without complications; K21.9 Gastro-esophageal reflux disease without esophagitis; I25.10 Atherosclerotic heart disease of native coronary artery without angina pectoris; E78.5 Hyperlipidemia, unspecified; J44.9 Chronic obstructive pulmonary disease, unspecified; Z95.1 Presence of aortocoronary bypass graft; Z88.2 Allergy status to sulfonamides; Z88.7 Allergy status to serum and vaccine; Z88.8 Allergy status to other drugs, medicaments and biological substances; Z95.3 Presence of xenogenic heart valve; Z83.3 Family history of diabetes mellitus
CPT/HCPCS: 36415; 36600; 71045; 71260; 80048; 80053; 80061; 82805; 83036; 83735; 83880; 84443; 84484; 85025; 85027; 85520; 87040; 90471; 90686; 93005; 93306; 93312; 93325; 94618; 96374; 96375; J0282; J1644; J1885; J1940; J2704; J3490; J7120; Q9967; 99285-25; G0378

== ENCOUNTER 2019-01-24 09:33 | Observation (INO) | payer MEDICARE, BC ==
[~2019-01-24] VITALS: Ht 162.6 cm; Wt 79.1 kg
[~2019-01-24 09:33] MED LIST: AMIO200T4 PO; LIRA0.6P2 SQ; METO25TA4 PO; RIVA10TA PO
--- NOTE | 2019-01-24 10:01 | PHYS DOC ---
Past Medical History Past Medical History: Other Additional Past Medical Histor: afib Past Surgical History: Other Additional Past Surgical Histo: bilat knees, cabg Alcohol Use: None Drug Use: None Adult General Chief Complaint Chief Complaint: BACK PAIN - NO INJURY HPI HPI Patient is a 78 year old Female who presents with upper back pain to the right paraspinal x 4 days but worse today. Patient states when she is laying still with a 4 out of 10 but with standing up or movement is 7 out of 10. Patient denies shortness of air, chest pain, nausea, abdominal pain, vomiting, diarrhea, fevers, dizziness, numbness or tingling, syncope, visual changes, weaknesses. Patient denies any injury to her back. Review of Systems Review of Systems Musculoskeletal: Upper back right paraspinal back pain or right neck joint pain [] All other systems were reviewed and found to be within normal limits, except as documented in this note. Current Medications Current Medications Current Medications Medications (Trade) Dose Ordered Sig/Obdulio Start Time Stop Time Status Last Admin Dose Admin Info (CONTRAST GIVEN -- Rx MONITORING) 1 each PRN DAILY PRN 01/24/19 10:45 01/26/19 10:44 Iohexol (Omnipaque 350 Mg/ml) 100 ml 1X ONCE 01/24/19 10:15 01/24/19 10:16 DC 01/24/19 10:42 100 ML Sodium Chloride 1,000 ml @ 1,000 mls/hr 1X ONCE 01/24/19 10:45 01/24/19 11:44 DC 01/24/19 11:58 1,000 MLS/HR Allergies Allergies Allergies Coded Allergies Type Severity Reaction Last Updated Verified oxaprozin Allergy Intermediate itching 01/10/19 Yes tetanus and diphtheria toxoids Allergy Intermediate anaphalaxis 01/08/19 Yes Sulfa (Sulfonamide Antibiotics) Allergy Mild rash 01/10/19 Yes Physical Exam Physical Exam Constitutional: Well developed, well nourished, no acute distress, non-toxic appearance. [] Neck: Normal range of motion, right neck tenderness, supple, no stridor. [] Cardiovascular:Heart rate sinus rhythm with a block, no murmur [] Lungs & Thorax: Bilateral breath sounds clear to auscultation [] Abdomen: Bowel sounds normal, soft, no tenderness, no masses, no pulsatile masses. [] Skin: Warm, dry, no erythema, no rash. [] Back: Right upper paraspinal tenderness, no CVA tenderness. [] Extremities: No tenderness, no cyanosis, no clubbing, ROM intact, no edema. [] Neurologic: Alert and oriented X 3, normal motor function, normal sensory function, no focal deficits noted. [] Psychologic: Affect normal, judgement normal, mood normal. [] Current Patient Data Vital Signs Vital Signs Date Time Temp Pulse Resp B/P (MAP) Pulse Ox O2 Delivery O2 Flow Rate FiO2 01/24/19 09:48 97.6 60 20 176/70 (105) 94 Room Air 97.6 Lab Values Laboratory Tests Test 01/24/19 10:01 White Blood Count 7.6 x10^3/uL (4.0-11.0) Red Blood Count 4.24 x10^6/uL (3.50-5.40) Hemoglobin 12.3 g/dL (12.0-15.5) Hematocrit 37.6 % (36.0-47.0) Mean Corpuscular Volume 89 fL (79-100) Mean Corpuscular Hemoglobin 29 pg (25-35) Mean Corpuscular Hemoglobin Concent 33 g/dL (31-37) Red Cell Distribution Width 16.1 % (11.5-14.5) H Platelet Count 194 x10^3/uL (140-400) Neutrophils (%) (Auto) 75 % (31-73) H Lymphocytes (%) (Auto) 15 % (24-48) L Monocytes (%) (Auto) 9 % (0-9) Eosinophils (%) (Auto) 1 % (0-3) Basophils (%) (Auto) 1 % (0-3) Neutrophils # (Auto) 5.6 x10^3/uL (1.8-7.7) Lymphocytes # (Auto) 1.1 x10^3/uL (1.0-4.8) Monocytes # (Auto) 0.7 x10^3/uL (0.0-1.1) Eosinophils # (Auto) 0.1 x10^3/uL (0.0-0.7) Basophils # (Auto) 0.0 x10^3/uL (0.0-0.2) Prothrombin Time 16.7 SEC (11.7-14.0) H Prothrombin Time INR 1.4 (0.8-1.1) H Sodium Level 142 mmol/L (136-145) Potassium Level 4.2 mmol/L (3.5-5.1) Chloride Level 107 mmol/L (98-107) Carbon Dioxide Level 26 mmol/L (21-32) Anion Gap 9 (6-14) Blood Urea Nitrogen 16 mg/dL (7-20) Creatinine 0.8 mg/dL (0.6-1.0) Estimated GFR (Cockcroft-Gault) 69.2 BUN/Creatinine Ratio 20 (6-20) Glucose Level 179 mg/dL (70-99) H Calcium Level 8.5 mg/dL (8.5-10.1) Total Bilirubin 0.3 mg/dL (0.2-1.0) Aspartate Amino Transferase (AST) 14 U/L (15-37) L Alanine Aminotransferase (ALT) 15 U/L (14-59) Alkaline Phosphatase 73 U/L (46-116) Troponin I Quantitative < 0.017 ng/mL (0.000-0.055) Total Protein 6.2 g/dL (6.4-8.2) L Albumin 2.9 g/dL (3.4-5.0) L Albumin/Globulin Ratio 0.9 (1.0-1.7) L Laboratory Tests 01/24/19 10:01 Laboratory Tests 01/24/19 10:01 EKG EKG Sinus rhythm with a block[] Interpretation Time: [address] Knapp Radiology/Procedures Radiology/Procedures [] Impressions: [facility] [address] [place] [address] IMAGING REPORT Signed PATIENT: ROSALINE JOVEL ACCOUNT: [id number] : 1940 LOCATION: ER AGE: 78 SEX: F EXAM STATUS: REG ER ORD. PHYSICIAN: EDUARD LI APRN REASON: UPPER BACK PAIN. CARDIAC HX. R/O DISSECTION PROCEDURE: CT ANGIOGRAPHY CHEST Examination: CT ANGIOGRAPHY CHEST History: Upper back pain. Comparison/Correlation: 01/18/2019 CT chest with contrast Findings: Axial images of chest were obtained prior to and following IV contrast according to dissection protocol. Sagittal and coronal reformatted images were provided. Maximum intensity projection images were provided. Volume rendered images of the mediastinum and thoracic aorta are provided. Mediastinal clips are present. Post CABG findings noted. Significant thickening of aortic valve leaflets. While sternal wires are present, there is no bony fusion or bridging of the sternal midline. Small hiatal hernia is present. No pleural or pericardial effusion. Tracheobronchial tree wall calcification noted. Left lateral costophrenic sulcus is 0.4 cm diameter nodule is present and may have a few punctate calcifications within it. Mosaic attenuation of the lung go is evident. Minimal lingular linear atelectasis or scarring is present. Significant C6-7 disc space narrowing is present. Severe disc space narrowing from T10 through T12 is present. Mosaic attenuation of the lung go which may represent small airways disease is noted. There are radiopaque densities identified involving the aortic valve and about the aortic root. . Correlate with history of intervention Significant aortic valve leaflet thickening is present. There is no thoracic or upper abdominal, suprarenal aortic dissection. Branch vessels of the aortic arch are unremarkable. Calcific involvement is evident about the celiac superior mesenteric and bilateral renal arteries. Pulmonary arterial vasculature is unremarkable although evaluation is limited due to respiratory motion. There is a 1.3 cm diameter right hilar lymph node. Diverticulosis of the colon is present. Impression: No evidence of thoracic aortic dissection or intramural hematoma. Thickened aortic valve leaflets. Hiatal hernia. Borderline to mildly enlarged right hilar lymph node is present. PQRS Compliance Statement: One or more of the following individualized dose reduction techniques were utilized for this examination: 1. Automated exposure control 2. Adjustment of the mA and/or kV according to patient size 3. Use of iterative reconstruction technique Electronically signed by: Ascencion Gay MD (01/24/2019 11:17 AM) [facility] DICTATED and SIGNED BY: ASCENCION GAY MD DATE: 01/24/19 1117 [facility] [address] [place], [place] [id number] IMAGING REPORT Signed PATIENT: ROSALINE JOVEL ACCOUNT: [id number] : 1940 LOCATION: ER AGE: 78 SEX: F EXAM STATUS: REG ER ORD. PHYSICIAN: EDUARD LI APRN REASON: upper back pain PROCEDURE: PORTABLE CHEST 1V EXAM: CHEST 1 VIEW History: Upper back pain COMPARISON: 01/08/2019 TECHNIQUE: Single portable radiograph of the chest FINDINGS: Low lung volumes and technique accentuates heart size and pulmonary vascularity. Minimal bibasilar lung atelectasis or infiltrates. IMPRESSION: Minimal bibasilar lung atelectasis or infiltrates. Follow-up to resolution. Electronically signed by: Peter Zarate MD (01/24/2019 10:22 AM) [id number] DICTATED and SIGNED BY: PETER ZARATE MD DATE: 01/24/19 1022 Course & Med Decision Making Course & Med Decision Making Alert and oriented. Ambulatory unsteady gait. Speaks in full clear sentences. Skin pink warm and dry. Vital signs within normal limits. Blood pressure on the right arm is 176/70 and blood pressure on the left arm is 150/64. EKG shows sinus rhythm with a block. No extremity swelling. Abdomen is soft and nontender. Back pain is reproduced with palpation and patient states it does not radiate. Patient also complains of right sided neck pain. Patient states that neck pain on the right side is been going on for months. Patient states that the pain in her back is worse with taking a deep breath. Lungs are clear to auscultation in all lobes. She states she has been taking all of her medications as prescribed. Patient states she was told she does not need to wear oxygen at home. Patient O2 saturation is 89% RA. Patient is placed on 2L and oxygen up to 97%. Patient is destating on 2L to 89%. Patient is up and walked in the colmenares and she desating on room air to 87%. Patient states she does not use oxygen at home and was told she didnt need too. Chest xray showing small infiltrates. I have spoken to Dr Glover and he states to not start any antibiotics and consult pulmonary. He states to admit her to Dr Smyth. Rickie Disclaimer Rickie Disclaimer This electronic medical record was generated, in whole or in part, using a voice recognition dictation system. Departure Departure Impression: Primary Impression: Pneumonia Disposition: ADMITTED INPATIENT Admitting Physician: Jeet Smyth Condition: STABLE Referrals: JEET SMYTH MD (PCP) Problem Qualifiers Primary Impression: Pneumonia Pneumonia type: due to unspecified organism Laterality: bilateral Lung location: lower lobe of lung Qualified Codes: J18.1 - Lobar pneumonia, unspecified organism EDUARD LI [employer] COMMISSIONER Jan 24, 2019 10:01
[2019-01-24] MEDS ORDERED: IOHEXOL 350 MG/ML 100 ML VIAL. IV ONE (10:15)
--- NOTE | 2019-01-24 10:15 | EKG ---
[facility] [address] [place] [address] Test Date: 2019-01-24 Test Time: 09:45:19 Pat Name: ROSALINE JOVEL Department: Room: Gender: F Junior Systems Analyst: : 1940 Requested By: EDUARD LI Order Number: [id number] Reading MD: Milton Ledezma MD Measurements Intervals [place] Rate: 57 P: 47 VA: 154 QRS: -20 QRSD: 134 T: 146 QT: 466 QTc: 452 Interpretive Statements SINUS RHYTHM LBBB NON-SPECIFIC ST/T CHANGES Electronically Signed On 01-31-2019 10:29:43 CDT by Milton Ledezma MD
[2019-01-24 10:25] LABS: CALCIUM 8.5 mg/dL (8.5-10.1); CREATININE 0.8 mg/dL (0.6-1.0); GFR 69.2; POTASSIUM 4.2 mmol/L (3.5-5.1)
--- NOTE | 2019-01-24 10:25 | RAD ---
EXAM: CHEST 1 VIEW History: Upper back pain COMPARISON: 01/08/2019 TECHNIQUE: Single portable radiograph of the chest FINDINGS: Low lung volumes and technique accentuates heart size and pulmonary vascularity. Minimal bibasilar lung atelectasis or infiltrates. IMPRESSION: Minimal bibasilar lung atelectasis or infiltrates. Follow-up to resolution. Electronically signed by: Peter Zarate MD (01/24/2019 10:22 AM) [id number]
[2019-01-24 10:31] LABS: ALBUMIN 2.9 g/dL (3.4-5.0); ALBUMIN/GLOBULIN RATIO 0.9 (1.0-1.7); TOTAL BILIRUBIN 0.3 mg/dL (0.2-1.0); TOTAL PROTEIN 6.2 g/dL (6.4-8.2)
[2019-01-24 10:35] LABS: BASO % 1 % (0-3); EOS # 0.1 x10^3/uL (0.0-0.7); EOS % 1 % (0-3); HEMATOCRIT 37.6 % (36.0-47.0); HEMOGLOBIN 12.3 g/dL (12.0-15.5); LYMPH # 1.1 x10^3/uL (1.0-4.8); LYMPH % 15 % (24-48); MEAN CORPUSCULAR HEMOGLOBIN 29 pg (25-35); MEAN CORPUSCULAR HGB CONC 33 g/dL (31-37); MEAN CORPUSCULAR VOLUME 89 fL (79-100); MONO # 0.7 x10^3/uL (0.0-1.1); MONO % 9 % (0-9); NEUT # 5.6 x10^3/uL (1.8-7.7); NEUT % 75 % (31-73); PLATELET COUNT 194 x10^3/uL (140-400); RED BLOOD COUNT 4.24 x10^6/uL (3.50-5.40); RED CELL DISTRIBUTION WIDTH 16.1 % (11.5-14.5); WHITE BLOOD COUNT 7.6 x10^3/uL (4.0-11.0)
[2019-01-24 10:45] LABS: PROTHROMBIN TIME PATIENT 16.7 SEC (11.7-14.0)
[2019-01-24] MEDS ORDERED: IV NORMAL SALINE 1000ML BAG 1,000 ML IV ONE (10:45)
[2019-01-24] MEDS ORDERED: CONTRAST GIVEN. MC PRN (10:45)
--- NOTE | 2019-01-24 11:20 | RAD ---
Examination: CT ANGIOGRAPHY CHEST History: Upper back pain. Comparison/Correlation: 01/18/2019 CT chest with contrast Findings: Axial images of chest were obtained prior to and following IV contrast according to dissection protocol. Sagittal and coronal reformatted images were provided. Maximum intensity projection images were provided. Volume rendered images of the mediastinum and thoracic aorta are provided. Mediastinal clips are present. Post CABG findings noted. Significant thickening of aortic valve leaflets. While sternal wires are present, there is no bony fusion or bridging of the sternal midline. Small hiatal hernia is present. No pleural or pericardial effusion. Tracheobronchial tree wall calcification noted. Left lateral costophrenic sulcus is 0.4 cm diameter nodule is present and may have a few punctate calcifications within it. Mosaic attenuation of the lung go is evident. Minimal lingular linear atelectasis or scarring is present. Significant C6-7 disc space narrowing is present. Severe disc space narrowing from T10 through T12 is present. Mosaic attenuation of the lung go which may represent small airways disease is noted. There are radiopaque densities identified involving the aortic valve and about the aortic root. . Correlate with history of intervention Significant aortic valve leaflet thickening is present. There is no thoracic or upper abdominal, suprarenal aortic dissection. Branch vessels of the aortic arch are unremarkable. Calcific involvement is evident about the celiac superior mesenteric and bilateral renal arteries. Pulmonary arterial vasculature is unremarkable although evaluation is limited due to respiratory motion. There is a 1.3 cm diameter right hilar lymph node. Diverticulosis of the colon is present. Impression: No evidence of thoracic aortic dissection or intramural hematoma. Thickened aortic valve leaflets. Hiatal hernia. Borderline to mildly enlarged right hilar lymph node is present. PQRS Compliance Statement: One or more of the following individualized dose reduction techniques were utilized for this examination: 1. Automated exposure control 2. Adjustment of the mA and/or kV according to patient size 3. Use of iterative reconstruction technique Electronically signed by: Ascencion Sage MD (01/24/2019 11:17 AM) [facility]
--- NOTE | 2019-01-24 12:05 | NUR ---
Rachelle JONES notified of patient results for Road Test.
[2019-01-24] MEDS ORDERED: ONDANSETRON PF 4 MG/2 ML VIAL. IV PRN (12:45)
[2019-01-24] MEDS ORDERED: fentaNYL PF VIAL 100 MCG/2 ML VIAL IV PRN (12:45)
[2019-01-24] MEDS ORDERED: ACETAMINOPHEN 325 MG TABLET. PO PRN (12:45)
[2019-01-24 14:31] VITALS: BP 119/20
[2019-01-24 14:32] VITALS: BP 107/34
--- NOTE | 2019-01-24 16:26 | PDOC ---
PULMONARY PROGRESS NOTES Vitals Vital Signs Date Time Temp Pulse Resp B/P (MAP) Pulse Ox O2 Delivery O2 Flow Rate FiO2 01/24/19 14:32 107/34 (58) 01/24/19 14:31 97.5 61 18 97 Nasal Cannula 3.0 97.5 Labs Laboratory Tests Test 01/24/19 10:01 01/24/19 12:20 White Blood Count 7.6 x10^3/uL (4.0-11.0) Red Blood Count 4.24 x10^6/uL (3.50-5.40) Hemoglobin 12.3 g/dL (12.0-15.5) Hematocrit 37.6 % (36.0-47.0) Mean Corpuscular Volume 89 fL (79-100) Mean Corpuscular Hemoglobin 29 pg (25-35) Mean Corpuscular Hemoglobin Concent 33 g/dL (31-37) Red Cell Distribution Width 16.1 % (11.5-14.5) Platelet Count 194 x10^3/uL (140-400) Neutrophils (%) (Auto) 75 % (31-73) Lymphocytes (%) (Auto) 15 % (24-48) Monocytes (%) (Auto) 9 % (0-9) Eosinophils (%) (Auto) 1 % (0-3) Basophils (%) (Auto) 1 % (0-3) Neutrophils # (Auto) 5.6 x10^3/uL (1.8-7.7) Lymphocytes # (Auto) 1.1 x10^3/uL (1.0-4.8) Monocytes # (Auto) 0.7 x10^3/uL (0.0-1.1) Eosinophils # (Auto) 0.1 x10^3/uL (0.0-0.7) Basophils # (Auto) 0.0 x10^3/uL (0.0-0.2) Prothrombin Time 16.7 SEC (11.7-14.0) Prothromb Time International Ratio 1.4 (0.8-1.1) Sodium Level 142 mmol/L (136-145) Potassium Level 4.2 mmol/L (3.5-5.1) Chloride Level 107 mmol/L (98-107) Carbon Dioxide Level 26 mmol/L (21-32) Anion Gap 9 (6-14) Blood Urea Nitrogen 16 mg/dL (7-20) Creatinine 0.8 mg/dL (0.6-1.0) Estimated GFR (Cockcroft-Gault) 69.2 BUN/Creatinine Ratio 20 (6-20) Glucose Level 179 mg/dL (70-99) Calcium Level 8.5 mg/dL (8.5-10.1) Total Bilirubin 0.3 mg/dL (0.2-1.0) Aspartate Amino Transf (AST/SGOT) 14 U/L (15-37) Alanine Aminotransferase (ALT/SGPT) 15 U/L (14-59) Alkaline Phosphatase 73 U/L (46-116) Troponin I Quantitative < 0.017 ng/mL (0.000-0.055) Total Protein 6.2 g/dL (6.4-8.2) Albumin 2.9 g/dL (3.4-5.0) Albumin/Globulin Ratio 0.9 (1.0-1.7) Lactic Acid Level 1.6 mmol/L (0.4-2.0) Laboratory Tests Test 01/24/19 10:01 01/24/19 12:20 White Blood Count 7.6 x10^3/uL (4.0-11.0) Red Blood Count 4.24 x10^6/uL (3.50-5.40) Hemoglobin 12.3 g/dL (12.0-15.5) Hematocrit 37.6 % (36.0-47.0) Mean Corpuscular Volume 89 fL (79-100) Mean Corpuscular Hemoglobin 29 pg (25-35) Mean Corpuscular Hemoglobin Concent 33 g/dL (31-37) Red Cell Distribution Width 16.1 % (11.5-14.5) Platelet Count 194 x10^3/uL (140-400) Neutrophils (%) (Auto) 75 % (31-73) Lymphocytes (%) (Auto) 15 % (24-48) Monocytes (%) (Auto) 9 % (0-9) Eosinophils (%) (Auto) 1 % (0-3) Basophils (%) (Auto) 1 % (0-3) Neutrophils # (Auto) 5.6 x10^3/uL (1.8-7.7) Lymphocytes # (Auto) 1.1 x10^3/uL (1.0-4.8) Monocytes # (Auto) 0.7 x10^3/uL (0.0-1.1) Eosinophils # (Auto) 0.1 x10^3/uL (0.0-0.7) Basophils # (Auto) 0.0 x10^3/uL (0.0-0.2) Prothrombin Time 16.7 SEC (11.7-14.0) Prothromb Time International Ratio 1.4 (0.8-1.1) Sodium Level 142 mmol/L (136-145) Potassium Level 4.2 mmol/L (3.5-5.1) Chloride Level 107 mmol/L (98-107) Carbon Dioxide Level 26 mmol/L (21-32) Anion Gap 9 (6-14) Blood Urea Nitrogen 16 mg/dL (7-20) Creatinine 0.8 mg/dL (0.6-1.0) Estimated GFR (Cockcroft-Gault) 69.2 BUN/Creatinine Ratio 20 (6-20) Glucose Level 179 mg/dL (70-99) Calcium Level 8.5 mg/dL (8.5-10.1) Total Bilirubin 0.3 mg/dL (0.2-1.0) Aspartate Amino Transf (AST/SGOT) 14 U/L (15-37) Alanine Aminotransferase (ALT/SGPT) 15 U/L (14-59) Alkaline Phosphatase 73 U/L (46-116) Troponin I Quantitative < 0.017 ng/mL (0.000-0.055) Total Protein 6.2 g/dL (6.4-8.2) Albumin 2.9 g/dL (3.4-5.0) Albumin/Globulin Ratio 0.9 (1.0-1.7) Lactic Acid Level 1.6 mmol/L (0.4-2.0) Medications Active Scripts Medications Dose Route/Sig Max Daily Dose Days Date Category Metoprolol Tartrate 25 Mg Tablet 12.5 Mg PO BID 30 01/12/19 Rx Amiodarone Hcl 200 Mg Tablet 200 Mg PO DAILY 30 01/12/19 Rx Xarelto (Rivaroxaban) 10 Mg Tablet 20 Mg PO DAILYWSUP 30 01/12/19 Rx Impression . CHEST PAIN SEC TO PLEURISY PLAN NSAIDS D/C IN AM OK BY CHERRI LOTT MD Jan 24, 2019 16:26
[2019-01-24] MEDS ORDERED: IBUPROFEN 200 MG TABLET. PO PRN (16:30)
[2019-01-24] MEDS ORDERED: ANTI-COAG MONITOR BY PHARMACY. MC PRN (18:00)
[2019-01-24] MEDS ORDERED: RIVAROXABAN 10 MG TABLET. PO SCH (18:00)
[2019-01-24 19:31] VITALS: BP 131/50
[2019-01-24] MEDS: METOPROLOL TART IMMED RELEASE 25 MG TABLET. PO SCH (20:49)
[2019-01-24 23:32] VITALS: BP 107/37
[2019-01-25] MEDS ORDERED: TEMAZEPAM 15 MG CAPSULE PO PRN
--- NOTE | 2019-01-25 02:04 | CONS ---
DATE OF CONSULTATION: 01/24/2019 ATTENDING PHYSICIAN: Dr. Jaden Smyth. REASON FOR CONSULTATION: The patient seen in pulmonary consultation at the request of Dr. Smyth for chest pain. HISTORY OF PRESENT ILLNESS: The patient is a 78-year-old female who presented with left upper back pain. She had worsening pain today. Hurts when she takes in a deep breath. She was not significantly short of breath. She was slightly short of breath, but not more than usual. She also had some diarrhea. She states she has had diarrhea ever since she was hospitalized back early part of January. She denies fever or chills. PAST MEDICAL HISTORY: Chronic AFib, coronary artery disease, hyperlipidemia, aortic valve replacement, gastroesophageal reflux, osteoarthritis, diabetes. PAST SURGICAL HISTORY: Status post CABG, total knee replacement, and aortic valve replacement. FAMILY HISTORY: Diabetes. SOCIAL HISTORY: She is a lifetime nonsmoker. ALLERGIES: SULFA, OXAPROZIN, TETANUS AND DIPHTHERIA TOXOID.] CURRENT MEDICATIONS: List was reviewed. REVIEW OF SYSTEMS: CONSTITUTIONAL: No fever or chills. EYES: No change in visual acuity. HENT: No nasal congestion or sore throat. PULMONARY: As indicated above. CARDIOVASCULAR: As indicated above. GASTROINTESTINAL: As indicated above. GENITOURINARY: No dysuria or frequency. MUSCULOSKELETAL: No localized muscle aches or joint pains. SKIN: No new skin rashes. NEUROLOGIC: No headaches, diplopia or blurred vision. HOME MEDICATIONS: List was likewise reviewed. PHYSICAL EXAMINATION: VITAL SIGNS: Stable. O2 saturation was greater than 92%. HEENT: Eyes, the sclerae were nonicteric. NECK: Jugular venous distention was not elevated. No lymphadenopathy. CHEST: Full expansion. LUNGS: Adequate airway flow with no wheezes. CARDIOVASCULAR: Regular rate and rhythm with S1, S2, no S3. ABDOMEN: Soft, nontender, nondistended. EXTREMITIES: No clubbing, cyanosis or edema. NEUROLOGICAL: The patient was awake, alert, following commands. A detailed neuro exam was not performed. LABORATORY DATA: Reviewed. Electrolytes were normal. White count was normal. Hemoglobin and hematocrit were noted. INR was 1.4. CT chest was reviewed, no evidence of pulmonary embolism, no evidence of thoracic aortic dissection. There was borderline mild enlarged right hilar lymph node. IMPRESSION: 1. Pleurisy. 2. Chest pain secondary to above. 3. Coronary artery disease. 4. Chronic atrial fibrillation. 5. Status post aortic valve replacement. 6. Other comorbidities including hyperlipidemia, diabetes, gastroesophageal reflux. PLAN: 1. Recommend nonsteroidals for pain. 2. No need for antibiotics. 3. Possible discharge within the 24 hours if the patient continues to improve. I do appreciate the privilege in sharing in the patient's care. CHERRI GLOVER MD DR: JUMANA/pamela JOB#: [id number] / [id number]
[2019-01-25 03:43] VITALS: BP 117/45
[2019-01-25 05:24] LABS: BILIRUBIN,URINE NEGATIVE (NEG); CLARITY,URINE CLEAR; COLOR,URINE YELLOW; NITRITE,URINE NEGATIVE (NEG); PH,URINE 5.5; PROTEIN,URINE NEGATIVE (NEG-TRACE); UROBILINOGEN,URINE 0.2 mg/dL (0.2 mg/dL)
[2019-01-25 05:35] LABS: BACTERIA,URINE MANY /HPF (0-FEW); RBC,URINE 0 /HPF (0-2); WBC,URINE RARE /HPF (0-4)
[2019-01-25 07:00] VITALS: BP 123/43
[2019-01-25] MEDS ORDERED: RIVAROXABAN 10 MG TABLET. PO SCH (08:00)
[2019-01-25] MEDS: METOPROLOL TART IMMED RELEASE 25 MG TABLET. PO SCH (08:49)
[2019-01-25] MEDS ORDERED: AMIODARONE HCL 200 MG TABLET. PO SCH (09:00)
--- NOTE | 2019-01-25 09:49 | PDOC ---
PULMONARY PROGRESS NOTES Subjective PT NOT MORE SOA Vitals Vital Signs Date Time Temp Pulse Resp B/P (MAP) Pulse Ox O2 Delivery O2 Flow Rate FiO2 01/25/19 08:49 58 123/43 01/25/19 08:20 Nasal Cannula 3.0 01/25/19 07:00 97.7 18 91 97.7 ROS: No Nausea, No Chest Pain, No Abdominal Pain, No Increase Cough General: Alert Lungs: Clear Cardiovascular: S1, S2 Abdomen: Soft Neuro Exam: Alert Extremities: No Edema Skin: Warm Labs Laboratory Tests Test 01/24/19 10:01 01/24/19 12:20 01/25/19 05:00 White Blood Count 7.6 x10^3/uL (4.0-11.0) Red Blood Count 4.24 x10^6/uL (3.50-5.40) Hemoglobin 12.3 g/dL (12.0-15.5) Hematocrit 37.6 % (36.0-47.0) Mean Corpuscular Volume 89 fL (79-100) Mean Corpuscular Hemoglobin 29 pg (25-35) Mean Corpuscular Hemoglobin Concent 33 g/dL (31-37) Red Cell Distribution Width 16.1 % (11.5-14.5) Platelet Count 194 x10^3/uL (140-400) Neutrophils (%) (Auto) 75 % (31-73) Lymphocytes (%) (Auto) 15 % (24-48) Monocytes (%) (Auto) 9 % (0-9) Eosinophils (%) (Auto) 1 % (0-3) Basophils (%) (Auto) 1 % (0-3) Neutrophils # (Auto) 5.6 x10^3/uL (1.8-7.7) Lymphocytes # (Auto) 1.1 x10^3/uL (1.0-4.8) Monocytes # (Auto) 0.7 x10^3/uL (0.0-1.1) Eosinophils # (Auto) 0.1 x10^3/uL (0.0-0.7) Basophils # (Auto) 0.0 x10^3/uL (0.0-0.2) Prothrombin Time 16.7 SEC (11.7-14.0) Prothromb Time International Ratio 1.4 (0.8-1.1) Sodium Level 142 mmol/L (136-145) Potassium Level 4.2 mmol/L (3.5-5.1) Chloride Level 107 mmol/L (98-107) Carbon Dioxide Level 26 mmol/L (21-32) Anion Gap 9 (6-14) Blood Urea Nitrogen 16 mg/dL (7-20) Creatinine 0.8 mg/dL (0.6-1.0) Estimated GFR (Cockcroft-Gault) 69.2 BUN/Creatinine Ratio 20 (6-20) Glucose Level 179 mg/dL (70-99) Calcium Level 8.5 mg/dL (8.5-10.1) Total Bilirubin 0.3 mg/dL (0.2-1.0) Aspartate Amino Transf (AST/SGOT) 14 U/L (15-37) Alanine Aminotransferase (ALT/SGPT) 15 U/L (14-59) Alkaline Phosphatase 73 U/L (46-116) Troponin I Quantitative < 0.017 ng/mL (0.000-0.055) Total Protein 6.2 g/dL (6.4-8.2) Albumin 2.9 g/dL (3.4-5.0) Albumin/Globulin Ratio 0.9 (1.0-1.7) Lactic Acid Level 1.6 mmol/L (0.4-2.0) Urine Collection Type Unknown Urine Color Yellow Urine Clarity Clear Urine pH 5.5 Urine Specific [place] 1.025 Urine Protein Negative mg/dL (NEG-TRACE) Urine Glucose (UA) Negative mg/dL (NEG) Urine Ketones (Stick) Negative mg/dL (NEG) Urine Blood Negative (NEG) Urine Nitrite Negative (NEG) Urine Bilirubin Negative (NEG) Urine Urobilinogen Dipstick 0.2 mg/dL (0.2 mg/dL) Urine Leukocyte Esterase Negative (NEG) Urine RBC 0 /HPF (0-2) Urine WBC Rare /HPF (0-4) Urine Bacteria Many /HPF (0-FEW) Laboratory Tests Test 01/24/19 10:01 01/24/19 12:20 01/25/19 05:00 White Blood Count 7.6 x10^3/uL (4.0-11.0) Red Blood Count 4.24 x10^6/uL (3.50-5.40) Hemoglobin 12.3 g/dL (12.0-15.5) Hematocrit 37.6 % (36.0-47.0) Mean Corpuscular Volume 89 fL (79-100) Mean Corpuscular Hemoglobin 29 pg (25-35) Mean Corpuscular Hemoglobin Concent 33 g/dL (31-37) Red Cell Distribution Width 16.1 % (11.5-14.5) Platelet Count 194 x10^3/uL (140-400) Neutrophils (%) (Auto) 75 % (31-73) Lymphocytes (%) (Auto) 15 % (24-48) Monocytes (%) (Auto) 9 % (0-9) Eosinophils (%) (Auto) 1 % (0-3) Basophils (%) (Auto) 1 % (0-3) Neutrophils # (Auto) 5.6 x10^3/uL (1.8-7.7) Lymphocytes # (Auto) 1.1 x10^3/uL (1.0-4.8) Monocytes # (Auto) 0.7 x10^3/uL (0.0-1.1) Eosinophils # (Auto) 0.1 x10^3/uL (0.0-0.7) Basophils # (Auto) 0.0 x10^3/uL (0.0-0.2) Prothrombin Time 16.7 SEC (11.7-14.0) Prothromb Time International Ratio 1.4 (0.8-1.1) Sodium Level 142 mmol/L (136-145) Potassium Level 4.2 mmol/L (3.5-5.1) Chloride Level 107 mmol/L (98-107) Carbon Dioxide Level 26 mmol/L (21-32) Anion Gap 9 (6-14) Blood Urea Nitrogen 16 mg/dL (7-20) Creatinine 0.8 mg/dL (0.6-1.0) Estimated GFR (Cockcroft-Gault) 69.2 BUN/Creatinine Ratio 20 (6-20) Glucose Level 179 mg/dL (70-99) Calcium Level 8.5 mg/dL (8.5-10.1) Total Bilirubin 0.3 mg/dL (0.2-1.0) Aspartate Amino Transf (AST/SGOT) 14 U/L (15-37) Alanine Aminotransferase (ALT/SGPT) 15 U/L (14-59) Alkaline Phosphatase 73 U/L (46-116) Troponin I Quantitative < 0.017 ng/mL (0.000-0.055) Total Protein 6.2 g/dL (6.4-8.2) Albumin 2.9 g/dL (3.4-5.0) Albumin/Globulin Ratio 0.9 (1.0-1.7) Lactic Acid Level 1.6 mmol/L (0.4-2.0) Urine Collection Type Unknown Urine Color Yellow Urine Clarity Clear Urine pH 5.5 Urine Specific [place] 1.025 Urine Protein Negative mg/dL (NEG-TRACE) Urine Glucose (UA) Negative mg/dL (NEG) Urine Ketones (Stick) Negative mg/dL (NEG) Urine Blood Negative (NEG) Urine Nitrite Negative (NEG) Urine Bilirubin Negative (NEG) Urine Urobilinogen Dipstick 0.2 mg/dL (0.2 mg/dL) Urine Leukocyte Esterase Negative (NEG) Urine RBC 0 /HPF (0-2) Urine WBC Rare /HPF (0-4) Urine Bacteria Many /HPF (0-FEW) Medications Active Scripts Medications Dose Route/Sig Max Daily Dose Days Date Category Metoprolol Tartrate 25 Mg Tablet 12.5 Mg PO BID 30 01/12/19 Rx Amiodarone Hcl 200 Mg Tablet 200 Mg PO DAILY 30 01/12/19 Rx Xarelto (Rivaroxaban) 10 Mg Tablet 20 Mg PO DAILYWSUP 30 01/12/19 Rx Impression . IMPRESSION: 1. Pleurisy. 2. Chest pain secondary to above. 3. Coronary artery disease. 4. Chronic atrial fibrillation. 5. Status post aortic valve replacement. 6. Other comorbidities including hyperlipidemia, diabetes, gastroesophageal reflux. Plan . HOME PER PCP 1. Recommend nonsteroidals for pain. 2. No need for antibiotics. 3. Possible discharge within the 24 hours if the patient continues to improve. CHERRI GLOVER MD Jan 25, 2019 09:49
[2019-01-25 11:00] VITALS: BP 142/51
--- NOTE | 2019-01-25 11:49 | NUR ---
SW following pt for dc planning. Chart reviewed. Pt lives at home and is admitted for hypoxia. Pt is also readmit <30days. Pt was discharged home with self care after declining HH services on 01/13/19. Pt has home 02 through [facility]. Pulmonary following. SW will be available as needed.
[2019-01-25 15:00] VITALS: BP 132/44
--- NOTE | 2019-01-25 16:00 | NUR ---
SAMUEL following pt. Pt did not go home with 02 on previous admission as she had passed 6 min walk. Physician is ordering 6min walk today to eval home 02 needs. Discussed with RN Rx is needed if pt needs home 02 and pt will benefit from HH.
--- NOTE | 2019-01-25 18:32 | NUR ---
DISCHARGE ORDERS PER DR BLOCK VIA TELEPHONE. CONTINUE PATIENT ON HOME MEDICATIONS. SEND PT HOME ON 2L NASAL CANULA. VERBAL ORDER FOR OXYGEN PER 6 MINUTE WALK RESULTS.
--- NOTE | 2019-01-25 18:33 | NUR ---
DR GLOVER GAVE VERBAL ORDER FOR OXYGEN 2L NASAL CANULA VIA TELEPHONE. PER DR GLOVER: HE WILL FINISH PAPERWORK AND ORDER TOMORROW AND FAX IT TO [facility].
--- NOTE | 2019-01-25 18:34 | NUR ---
Discharge Note: ROSALINE JOVEL [address] [place] [address] Discharge instructions and discharge home medications reviewed with Patient and a copy given. All questions have been answered and understanding verbalized. The following instructions and handouts were given: FOLLOW UP INSTRUCTIONS, MEDICATION LISTS, AND ACTIVITY LEVELS. PATIENT WAS GIVEN INSTRUCTIONS TO CALL [facility] ON ARRIVAL AT HOME. Discontinued lines and drains: Peripheral IV DISCONTINUED AND CATHETER intact. Patient discharged to Home or Self Care with Family Member via Wheelchair.
== END 2019-01-25 18:30 | disposition home or self-care (01) ==
LOC: ER 09:33 → INTOOBSV 12:23 → 6 SOUTH 12:23
PROVIDERS: ADMIT Family Medicine; ATTEND Family Medicine
DX: R09.1 Pleurisy (principal); R07.89 Other chest pain; I25.10 Atherosclerotic heart disease of native coronary artery without angina pectoris; I48.20 Chronic atrial fibrillation, unspecified; E78.5 Hyperlipidemia, unspecified; E11.9 Type 2 diabetes mellitus without complications; K21.9 Gastro-esophageal reflux disease without esophagitis; Z96.659 Presence of unspecified artificial knee joint; Z95.2 Presence of prosthetic heart valve; Z95.1 Presence of aortocoronary bypass graft
CPT/HCPCS: 36415; 71045; 71275; 80053; 81001; 82962; 83605; 84484; 85025; 85610; 87040; 87086; 87186; 93005; 94618; 99284; G0378; J7030; Q9967; G0379; 99285-25

== ENCOUNTER → 2019-03-14 | Outpatient (CLI) | payer MEDICARE, BC ==
[~2019-03-14] MED LIST changes: +REGADENOSON 0.4 MG/5 ML DISP.SYRIN. IV ONE
--- NOTE | 2019-03-14 09:46 | CARD ---
MR#: [id number] Date of Study: 03/14/2019 Ordering Physician: JOHNATHAN LEDEZMA, Referring Physician: JOHNATHAN LEDEZMA, Tech: Izzy Bearden APPROVED REPORT EXAM: Two-dimensional and M-mode echocardiogram with Doppler and color Doppler. Other Information Quality : AverageHR: 54bpm INDICATION Aortic Valve Disease Surgery/Intervention Status/Post Aortic Valve Replacement: Bioprosthetic Type: Porcine Date: 2007 2D DIMENSIONS RVDd3.6 (2.9-3.5cm)Left Atrium(2D)5.0 (1.6-4.0cm) IVSd1.5 (0.7-1.1cm)Aortic Root(2D)2.8 (2.0-3.7cm) LVDd5.2 (3.9-5.9cm)LVOT Diameter2.1 (1.8-2.4cm) PWd1.2 (0.7-1.1cm)LVDs3.1 (2.5-4.0cm) FS (%) 39.4 %SV89.3 ml LVEF(%)69.6 (>50%) Aortic Valve AoV Peak Akbar.354.3cm/sAoV VTI73.9cm AO Peak GR.50.2mmHgLVOT Peak Akbar.105.1cm/s LVOT VTI 22.89cmAO Mean GR.23mmHg DAREN (VMAX)0.67tb2XWM (VTI)1.03cm2 AI P 1/2 Nsmy681uo Mitral Valve MV E Wruuzdpb49.9cm/sMV DECEL FEAS124ef MV A Jbynfpjr08.8cm/sMV WPI64cx E/A Ratio2.4MVA (PHT)3.57cm2 TDI E/Lateral E'9.7E/Medial E'20.0 Pulmonary Valve PV Peak Auqtqcvq38.9cm/sPV Peak Grad.4mmHg Tricuspid Valve TR P. Tlzbkgif636jn/sRAP PYZWEJCT7brAq TR Peak Gr.54ltMoRBFU26mhCg Pulmonary Vein S1 Xzfmppqd51.3cm/sD2 Gxsyucct25.7cm/s PVa xbmxswql40vknf LEFT VENTRICLE The left ventricle is normal size. There is moderate concentric left ventricular hypertrophy. The lef t ventricular systolic function is normal and the ejection fraction is within normal range. The Eject ion Fraction is 50-55%. Septal motion suggestive of prior sternotomy. Otherwise, there is normal LV s egmental wall motion. Transmitral Doppler flow pattern is Grade II-pseudonormal filling dynamics. RIGHT VENTRICLE The right ventricle is mildly dilated. There is normal right ventricular wall thickness. The right ve ntricular systolic function is normal. ATRIA The left atrium is moderately dilated. The right atrium size is normal. The interatrial septum is int act with no evidence for an atrial septal defect or patent foramen ovale as noted on 2-D or Doppler i maging. AORTIC VALVE Not well visualized due to aortic bioprosthesis. Doppler and Color Flow revealed mild to moderate aor tic regurgitation. 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 MG 24 mm Hg. MITRAL VALVE The mitral valve is thickened but opens well. There is no evidence of mitral valve prolapse. There is no mitral valve stenosis. Doppler and Color-flow revealed trace mitral regurgitation. TRICUSPID VALVE The tricuspid valve is normal in structure and function. Doppler and Color Flow revealed trace tricus pid regurgitation with an estimated PAP of 42 mmHg. There is no tricuspid valve stenosis. PULMONIC VALVE Doppler and Color Flow revealed no pulmonic valvular regurgitation. There is no pulmonic valvular annika nosis. GREAT VESSELS The aortic root is normal in size. The IVC is normal in size and collapses >50% with inspiration. PERICARDIAL EFFUSION There is no evidence of significant pericardial effusion. Critical Notification Critical Value: No <Conclusion> The left ventricular systolic function is normal and the ejection fraction is within normal range. Th e Ejection Fraction is 50-55%. Septal motion suggestive of prior sternotomy. Otherwise, there is normal LV segmental wall motion. There is moderate concentric left ventricular hypertrophy. Doppler and Color Flow revealed mild to moderate aortic regurgitation. 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 MG 24 mm Hg. Signed by : Johnathan Ledezma, Electronically Approved : 03/14/2019 09:46:08
--- NOTE | 2019-03-14 10:09 | RAD ---
MR#: [id number] Date of Study: 03/14/2019 Ordering Physician: JOHNATHAN PURCELL, Referring Physician: JOHNATHAN PURCELL, Tech: Meño Elliott MBA, RDMS, RVT, RDCS, RTR APPROVED REPORT Patient Location: OUT-PATIENT Laterality:Bilateral Indications pad Doppler Spectral Velocity Analysis Right Left pCCA 91/9 cm/spCCA 121/16 cm/s mCCA 65/13 cm/smCCA 104/16 cm/s dCCA 79/13 cm/sdCCA 101/17 cm/s Bulb 65/11 cm/sBulb 76/13 cm/s ECA 82/ cm/sECA 84/ cm/s pICA 60/14 cm/spICA 76/19 cm/s Reynold 76/20 cm/smICA 157/25 cm/s dICA 82/21 cm/sdICA 98/20 cm/s Vert. 67/ cm/sVert. 80/ cm/s Subcl. 127/ cm/sSubcl. 144/ cm/s ICA/CCA 0.90ICA/CCA 1.30 Findings Grayscale images of the bilateral common carotid, internal and external carotid vessels demonstrates mild diffuse irregularities. The bilateral external carotid velocities are within normal limits. Bilateral common carotid artery v elocities are within normal limits. The right internal carotid artery has normal velocity profiles and spectral waveforms. Overall 0 to l ess than 50% stenosis. The left internal carotid artery by velocity criteria has a moderate 50-69% stenosis. The bilateral vertebral velocities are within normal limits. Critical Notification Critical Value: No <Conclusion> 1. Moderate left internal carotid disease. Otherwise no significant stenosis identified. Signed by : Johnathan Purcell, Electronically Approved : 03/14/2019 10:08:53
--- NOTE | 2019-03-14 11:24 | RAD ---
MR#: [id number] Date of Study: 03/14/2019 Ordering Physician: JOHNATHAN LEDEZMA, Referring Physician: BAR NOGUERA Tech: RT Brittney Dhillon) (N) APPROVED REPORT Test Type: Pharmacological Stress Nurse/Tech: DORYS DENISE RN Test Indications: CAD Cardiac History: AFIB, AORTIC ,AORTIC VALVE REPLACEMENT Medications: See Electronic Medical Record Medical History: See Electronic Medical Record Resting ECG: SR WITH BBB Resting Heart Rate: 58 bpm Resting Blood Pressure: 120/42mmHg Pretest Chest Pain: No chest pain Nurse/Tech Notes SR W/ BBB PER MONITOR, LUNGS CTA, PULSES +, DENIED ANY CP OR SOA Consent: The procedure was explained to the patient in lay terms. Informed consent was witnessed. Ryne eout was entered into [employer]. History and Stress Test performed by RT Brittney Gil) (N) Pharm. Details Pharmacologic stress testing was performed using 0.4mg per 5ml of regadenoson given intravenously ove r 7-10 seconds. Stress Symptoms DENIED CP OR SOA, ONLY COMPLAINT WAS A "FUNNY FEELING", WHICH SUBSIDED AFTER A COUPLE OF MINUTES POST EXERCISE Reason for Termination: Infusion complete Max HR: 69 bpm Max Blood Pressure: 162/51mmHg Blood Pressure response to exercise: Normal blood pressure response during stress. Heart Rate response to exercise: NORMAL RESPONSE TO STRESS Chest Pain: No. Arrhythmia: No. ST Change: No. INTERPRETATION Stress EKG Conclusion: No evidence of stress induced EKG changes but baseline EKG with SR and LBBB an d therefore is non-diagnostic. Imaging Protocol IMAGE PROTOCOL: Rest Tc-99m/stress Tc-99m 1 day Rest: Stress: Viability: Radiopharm.Tc99m OhokulbblXz18l Sestamibi Bxje78mIs 30.2mCi Duration 13min. 13min. Img Date 03/14/2019 03/14/2019 Inj-Img Vmht33ghz. 50min. Rest Admin Site:IV - Left HandAdministrator:RT Brittney Dhillon)(N) Stress Admin Site: IV - Left HandAdministrator: Wendy Byrnes, RT (R)(N) STRESS DATA End Diast. Vol.143.0mlLVEDV index BSA78.0ml End Syst. Vol.38.0mlLVESV index BSA21.0ml Myocardial Chwy843.0gEject. Ewtvctjb70.0% Stress Scores Regional WT0.00Summed WT5.00 Regional WM0.00Summed WM13.00 The rest and stress images show normal perfusion, normal contraction and thickening. LV Perf. Quant 17 Seg. SSS4.00 17 Seg. SRS4.00 17 Seg. SDS0.00 Stress Defect Extent (% LAD)1.30Rest Defect Extent (% LAD)0.00Rev. Defect Extent (% LAD)1.30 Stress Defect Extent (% LCX) 46.30Rest Defect Extent (% LCX)31.30Rev. Defect Extent (% LCX)15.00 Stress Defect Extent (% RCA)0.00Rest Defect Extent (% RCA)0.00Rev. Defect Extent (% RCA)0.00 Stress Defect Extent (% VIRGIL)10.20Rest Defect Extent (% VIRGIL)7.40Rev. Defect Extent (% VIRGIL)3.50 Other Information Quality:Average Risk Assessment: Low Risk Conclusion 1. Non-diagnostic EKG due to baseline LBBB 2. Normal perfusion at stress/rest. 3. Normal EF at > 60% 4. Low risk study Signed by : Johnathan Ledezma, Electronically Approved : 03/14/2019 11:24:33
== END ==
LOC: NM 07:19
PROVIDERS: ATTEND Internal Medicine Cardiovascular Disease
DX: I65.22 Occlusion and stenosis of left carotid artery (principal); I35.2 Nonrheumatic aortic (valve) stenosis with insufficiency; I25.10 Atherosclerotic heart disease of native coronary artery without angina pectoris; E11.9 Type 2 diabetes mellitus without complications; E78.5 Hyperlipidemia, unspecified; I48.91 Unspecified atrial fibrillation; Z95.4 Presence of other heart-valve replacement
CPT/HCPCS: 78452; 93017; 93306; 93880; A9500; J2785

== ENCOUNTER → 2020-03-19 | Outpatient (CLI) | payer MEDICARE, BC ==
[2019-06-14 11:00] VITALS: BP 167/71
[~2020-03-19] MED LIST changes: +ACET325T9 PO; +AMIO100T4 PO; -AMIO200T4 PO; +AMIO200T6 PO; +FURO20TA3 PO; +METO25TA2 PO; -REGADENOSON 0.4 MG/5 ML DISP.SYRIN. IV ONE
--- NOTE | 2020-03-19 13:19 | CARD ---
MR#: [id number] Date of Study: 03/19/2020 Ordering Physician: JOHNATHAN PURCELL, Referring Physician: JOHNATHAN PURCELL, Tech: Avis Nowak [facility] APPROVED REPORT EXAM: Two-dimensional and M-mode echocardiogram with Doppler and color Doppler. Other Information Quality : GoodHR: 118bpm Rhythm : Bradycardia/Pacemaker INDICATION History of AV replacement, CABG, pacemaker. 2D DIMENSIONS RVDd3.9 (2.9-3.5cm)IVSd1.6 (0.7-1.1cm) Aortic Root(2D)3.2 (2.0-3.7cm)LVDd4.7 (3.9-5.9cm) PWd1.3 (0.7-1.1cm)LVDs3.8 (2.5-4.0cm) FS (%) 18.9 %SV40.1 ml LVEF(%)39.1 (>50%) Aortic Valve AoV Peak Akbar.302.6cm/sAoV VTI46.3cm AO Peak GR.36.6mmHgLVOT Peak Akbar.105.8cm/s AO Mean GR.21mmHg Pulmonary Valve PV Peak Hurygryp48.8cm/s Tricuspid Valve TR P. Dcquucot035fg/sRAP DRGRSMAS5mmXt TR Peak Gr.61tdVyLRHM66xcBg LEFT VENTRICLE The left ventricle is normal size. There is moderate concentric left ventricular hypertrophy. Left ve ntricle systolic function is mildly impaired. The Ejection Fraction is 40-45%. Abnormal septal motion probably from post operative state. This study is not sufficient for diastolic function due to tachy cardia. RIGHT VENTRICLE The right ventricle is normal size. RV is hypokinetic. There is a pacemaker lead in the right ventric le. ATRIA The left atrium is moderately dilated. The right atrium is mildly dilated. The interatrial septum is intact with no evidence for an atrial septal defect or patent foramen ovale as noted on 2-D or Dopple r imaging. AORTIC VALVE There is a porcine, bioprosthetic aortic valve present. Peak gradient through the valve is 37mmHg and mean is 21mmHg. Moderate aortic regurgitation. MITRAL VALVE The mitral valve is normal in structure. Leaflets are moderately calcified. Mild mitral annular calci fication. There is no mitral valve stenosis. Mild to moderate mitral regurgitation. TRICUSPID VALVE The tricuspid valve is normal in structure and function. Doppler and Color Flow revealed mild tricusp id regurgitation. The PA pressure was estimated at 50 mmHg. PULMONIC VALVE The pulmonary valve is normal in structure and function. Trace pulmonic valvular regurgitation. GREAT VESSELS The aortic root is normal in size. The IVC is normal in size and collapses >50% with inspiration. PERICARDIAL EFFUSION There is no evidence of significant pericardial effusion. Critical Notification Critical Value: No <Conclusion> Left ventricle systolic function is mildly impaired. The Ejection Fraction is 40-45%. Abnormal septal motion probably from post operative state. Pacer lead noted RA/RV. Bbioprosthetic aortic valve appears well seated. Velocities and MG slightly elevated (21mmHg), could be secondary to aortic regurgitation but cannot rule out mild stenosis. Probable moderate aortic regurgitation (P1/2 time not measured). Mild to moderate mitral regurgitation. Mild tricuspid regurgitation. The PA pressure was estimated at 50 mmHg. There is no evidence of significant pericardial effusion. Signed by : Vimal Lopez, Electronically Approved : 03/19/2020 13:18:33
== END ==
LOC: ECHO 10:48
PROVIDERS: ATTEND Internal Medicine Cardiovascular Disease
DX: I08.3 Combined rheumatic disorders of mitral, aortic and tricuspid valves (principal); Z95.4 Presence of other heart-valve replacement; Z95.0 Presence of cardiac pacemaker
CPT/HCPCS: 93306

== ENCOUNTER 2020-03-31 19:26 | Inpatient (IN) | payer MEDICARE, BC ==
[~2020-03-31] VITALS: Ht 160 cm; Wt 83.5 kg
[2020-03-31 19:51] LABS: BASO # 0.1 x10^3/uL (0.0-0.2); BASO % 1 % (0-3); EOS # 0.1 x10^3/uL (0.0-0.7); EOS % 2 % (0-3); HEMATOCRIT 42.5 % (36.0-47.0); HEMOGLOBIN 13.8 g/dL (12.0-15.5); LYMPH # 2.3 x10^3/uL (1.0-4.8); LYMPH % 29 % (24-48); MEAN CORPUSCULAR HEMOGLOBIN 30 pg (25-35); MEAN CORPUSCULAR HGB CONC 33 g/dL (31-37); MEAN CORPUSCULAR VOLUME 92 fL (79-100); MONO # 0.8 x10^3/uL (0.0-1.1); MONO % 10 % (0-9); NEUT # 4.6 x10^3/uL (1.8-7.7); NEUT % 58 % (31-73); PLATELET COUNT 175 x10^3/uL (140-400); RED BLOOD COUNT 4.62 x10^6/uL (3.50-5.40); RED CELL DISTRIBUTION WIDTH 15.2 % (11.5-14.5)
[2020-03-31 20:05] LABS: ALBUMIN 3.6 g/dL (3.4-5.0); ALBUMIN/GLOBULIN RATIO 1.1 (1.0-1.7); CALCIUM 8.9 mg/dL (8.5-10.1); GFR 53.2; POTASSIUM 4.3 mmol/L (3.5-5.1); TOTAL BILIRUBIN 0.3 mg/dL (0.2-1.0)
[2020-03-31] MEDS ORDERED: AMIODARONE 150 MG/3 ML VIAL ONE (20:13)
[2020-03-31 20:20] LABS: BILIRUBIN,URINE NEGATIVE (NEG); CLARITY,URINE CLEAR; COLOR,URINE YELLOW; NITRITE,URINE NEGATIVE (NEG); PH,URINE 5.5 (<5.0-8.0); PROTEIN,URINE NEGATIVE (NEG-TRACE); UROBILINOGEN,URINE 0.2 mg/dL (0.2 mg/dL)
--- NOTE | 2020-03-31 20:22 | PHYS DOC ---
Past Medical History Past Medical History: A-Fib, Other Additional Past Medical Histor: afib Past Surgical History: Other Additional Past Surgical Histo: bilat knees, cabg Smoking Status: Never Smoker Alcohol Use: None Drug Use: None General Adult EDM: Chief Complaint: SHORTNESS OF BREATH HPI: HPI: Patient is a 80 year old female who presented to ER for evaluation of trouble breathing for the last few days. Patient also complained of right shoulder pain and right neck pain for couple days. Patient denies any chest pain. Patient denies any cough or fever. Patient is not sure if she been exposed to anybody who had COVID-19 infection. Patient has history of tachybradycardia syndrome, she is on amiodarone at home. Patient has taken her medication today. Patient had an echocardiogram done on March 19 of this year shown EF OF 40%. Her daughter stated that patient has not been compliant with her medications. Review of Systems: Review of Systems: Constitutional: Denies fever or chills. [] Eyes: Denies change in visual acuity. [] HENT: Denies nasal congestion or sore throat. [] Respiratory: POSITIVE FOR SHORTNESS OF AIR. Cardiovascular: Denies chest pain or edema. [] GI: Denies abdominal pain, nausea, vomiting, bloody stools or diarrhea. [] : Denies dysuria. [] Musculoskeletal: Denies back pain or joint pain. [] Integument: Denies rash. [] Neurologic: Denies headache, focal weakness or sensory changes. [] Endocrine: Denies polyuria or polydipsia. [] Lymphatic: Denies swollen glands. [] Psychiatric: Denies depression or anxiety. [] Heart Score: Risk Factors: Risk Factors: DM, Current or recent (<one month) smoker, HTN, HLP, family history of CAD, obesity. Risk Scores: Score 0 - 3: 2.5% MACE over next 6 weeks - Discharge Home Score 4 - 6: 20.3% MACE over next 6 weeks - Admit for Clinical Observation Score 7 - 10: 72.7% MACE over next 6 weeks - Early Invasive Strategies Current Medications: Current Medications Medications (Trade) Dose Ordered Sig/Obdulio Start Time Stop Time Status Last Admin Dose Admin Amiodarone HCl (Cordarone) 150 mg STK-MED ONCE 03/31/20 20:13 03/31/20 20:13 DC Amiodarone HCl 150 mg/Dextrose 103 ml @ 618 mls/hr 1X ONCE 03/31/20 20:30 03/31/20 20:39 Amiodarone HCl 450 mg/Dextrose 259 ml @ 34.533 mls/ hr CONT PRN 03/31/20 20:15 Allergies: Allergies: Allergies Coded Allergies Type Severity Reaction Last Updated Verified oxaprozin Allergy Intermediate itching 01/10/19 Yes tetanus and diphtheria toxoids Allergy Intermediate anaphalaxis 01/08/19 Yes Sulfa (Sulfonamide Antibiotics) Allergy Mild rash 01/10/19 Yes Physical Exam: PE: Constitutional: Well developed, well nourished, no acute distress, non-toxic appearance. [] HENT: Normocephalic, atraumatic, bilateral external ears normal, oropharynx moist, no oral exudates, nose normal. [] Eyes: PERRLA, EOMI, conjunctiva normal, no discharge. [] Neck: Normal range of motion, no tenderness, supple, no stridor. [] Cardiovascular:Heart rate regular rhythm, no murmur [] Lungs & Thorax: Bilateral breath sounds clear to auscultation [] Abdomen: Bowel sounds normal, soft, no tenderness, no masses, no pulsatile masses. [] Skin: Warm, dry, no erythema, no rash. [] Back: No tenderness, no CVA tenderness. [] Extremities: No tenderness, no cyanosis, no clubbing, ROM intact, no edema. [] Neurologic: Alert and oriented X 3, normal motor function, normal sensory function, no focal deficits noted. [] Psychologic: Affect normal, judgement normal, mood normal. [] Current Patient Data: Labs: Laboratory Tests Test 03/31/20 19:36 White Blood Count 8.0 x10^3/uL (4.0-11.0) Red Blood Count 4.62 x10^6/uL (3.50-5.40) Hemoglobin 13.8 g/dL (12.0-15.5) Hematocrit 42.5 % (36.0-47.0) Mean Corpuscular Volume 92 fL (79-100) Mean Corpuscular Hemoglobin 30 pg (25-35) Mean Corpuscular Hemoglobin Concent 33 g/dL (31-37) Red Cell Distribution Width 15.2 % (11.5-14.5) H Platelet Count 175 x10^3/uL (140-400) Neutrophils (%) (Auto) 58 % (31-73) Lymphocytes (%) (Auto) 29 % (24-48) Monocytes (%) (Auto) 10 % (0-9) H Eosinophils (%) (Auto) 2 % (0-3) Basophils (%) (Auto) 1 % (0-3) Neutrophils # (Auto) 4.6 x10^3/uL (1.8-7.7) Lymphocytes # (Auto) 2.3 x10^3/uL (1.0-4.8) Monocytes # (Auto) 0.8 x10^3/uL (0.0-1.1) Eosinophils # (Auto) 0.1 x10^3/uL (0.0-0.7) Basophils # (Auto) 0.1 x10^3/uL (0.0-0.2) Sodium Level 142 mmol/L (136-145) Potassium Level 4.3 mmol/L (3.5-5.1) Chloride Level 105 mmol/L (98-107) Carbon Dioxide Level 30 mmol/L (21-32) Anion Gap 7 (6-14) Blood Urea Nitrogen 22 mg/dL (7-20) H Creatinine 1.0 mg/dL (0.6-1.0) Estimated GFR (Cockcroft-Gault) 53.2 BUN/Creatinine Ratio 22 (6-20) H Glucose Level 223 mg/dL (70-99) H Calcium Level 8.9 mg/dL (8.5-10.1) Total Bilirubin 0.3 mg/dL (0.2-1.0) Aspartate Amino Transferase (AST) 22 U/L (15-37) Alanine Aminotransferase (ALT) 30 U/L (14-59) Alkaline Phosphatase 86 U/L (46-116) Troponin I Quantitative < 0.017 ng/mL (0.000-0.055) DB-Xlp-Z-Type Natriuretic Peptide 3223 pg/mL (0-449) H Total Protein 7.0 g/dL (6.4-8.2) Albumin 3.6 g/dL (3.4-5.0) Albumin/Globulin Ratio 1.1 (1.0-1.7) Laboratory Tests 03/31/20 19:36 Laboratory Tests 03/31/20 19:36 EKG: EKG: EKG was done at 1934, heart rate of 115 beats per minutes, sinus tachycardia , wide QRS complex. [] Radiology/Procedures: Radiology/Procedures: [][facility] [address] [place] [address] IMAGING REPORT Signed PATIENT: ROSALINE JOVEL ACCOUNT: [id number] : 1940 LOCATION: ER AGE: 80 SEX: F EXAM STATUS: REG ER ORD. PHYSICIAN: VARUN HACKETT DO REASON: SOA PROCEDURE: CHEST AP ONLY Exam: Chest one view INDICATION: Short of air TECHNIQUE: Frontal view of the chest Comparisons: 06/14/2019 FINDINGS: Sternotomy wires are noted. Pacer with leads terminating the right atrium and ventricle. Heart is mildly enlarged. Pulmonary vessels are within normal limits. The lung and pleural spaces are clear. IMPRESSION: No acute pulmonary process. Electronically signed by: Miguel Riley MD (03/31/2020 8:34 PM) [facility] DICTATED and SIGNED BY: MIGUEL RILEY MD DATE: 03/31/[id number] 0 Course & Med Decision Making: Course & Med Decision Making Pertinent Labs and Imaging studies reviewed. (See chart for details) Patient has multiples episodes of stable VT in the ER. Patient was given bolus of AMIODARONE AND DRIP STARTED IN THE ER, DISCUSSED WITH DR. SMYTH WHO WILL ADMIT PATIENT. Rickie Disclaimer: Dragdeepak Disclaimer: This electronic medical record was generated, in whole or in part, using a voice recognition dictation system. Departure Departure Impression: Primary Impression: CHF (congestive heart failure) Additional Impressions: Person under investigation for COVID-19 Ventricular tachycardia (paroxysmal) Disposition: ADMITTED INPT THIS HOSP Admitting Physician: Jeet Smyth Condition: STABLE Referrals: JEET SMYTH MD (PCP) VARUN HACKETT DO Mar 31, 2020 20:22
[2020-03-31 20:26] LABS: AMORPHOUS SEDIMENT,UR PRESENT /HPF; BACTERIA,URINE 0 /HPF (0-FEW); HYALINE CASTS, URINE FEW /HPF; RBC,URINE 0 /HPF (0-2); WBC,URINE OCC /HPF (0-4)
[2020-03-31] MEDS ORDERED: AMIODARONE 150 MG in IV DEXTROSE 5% 100ML 100 ML IV ONE (20:30)
[2020-03-31] MEDS: AMIODARONE 450 MG in IV DEXTROSE 5% 250 ML IV PRN (20:31)
--- NOTE | 2020-03-31 20:36 | RAD ---
Exam: Chest one view INDICATION: Short of air TECHNIQUE: Frontal view of the chest Comparisons: 06/14/2019 FINDINGS: Sternotomy wires are noted. Pacer with leads terminating the right atrium and ventricle. Heart is mildly enlarged. Pulmonary vessels are within normal limits. The lung and pleural spaces are clear. IMPRESSION: No acute pulmonary process. Electronically signed by: Miguel Flores MD (03/31/2020 8:34 PM) [facility]
[2020-03-31] MEDS ORDERED: FUROSEMIDE 40 MG/4 ML VIAL. IVP ONE (21:00)
[2020-03-31 21:45] VITALS: BP 132/80
[2020-03-31] MEDS ORDERED: FURO40TA4 PO (22:26)
[2020-03-31] MEDS ORDERED: AMIO200T6 PO (22:26)
[2020-03-31] MEDS ORDERED: DILT180C29 PO (22:26)
[2020-03-31] MEDS ORDERED: AMOX500C PO (22:30)
[2020-03-31] MEDS ORDERED: HYDR-2759 PO (22:46)
[2020-03-31] MEDS ORDERED: CYCL10TA2 PO (22:46)
[2020-03-31] MEDS ORDERED: FURO20TA3 PO (22:46)
[2020-03-31 23:00] VITALS: BP_SYST 115; BP_SYST 132; BP_DIAS 62; BP_DIAS 80
[2020-04-01] VITALS (10 sets, daily range): BP systolic 87–146; BP diastolic 60–110
[2020-04-01] MEDS: AMIODARONE 450 MG in IV DEXTROSE 5% 250 ML IV PRN (05:27)
[2020-04-01] MEDS ORDERED: ACETAMINOPHEN 325 MG TABLET. PO PRN ×2 (06:30→08:00)
[2020-04-01 07:18] LABS: BASO # 0.1 x10^3/uL (0.0-0.2); BASO % 1 % (0-3); EOS # 0.1 x10^3/uL (0.0-0.7); EOS % 2 % (0-3); HEMATOCRIT 39.3 % (36.0-47.0); HEMOGLOBIN 12.7 g/dL (12.0-15.5); LYMPH # 1.1 x10^3/uL (1.0-4.8); LYMPH % 18 % (24-48); MEAN CORPUSCULAR HEMOGLOBIN 29 pg (25-35); MEAN CORPUSCULAR HGB CONC 32 g/dL (31-37); MEAN CORPUSCULAR VOLUME 92 fL (79-100); MONO # 0.6 x10^3/uL (0.0-1.1); MONO % 10 % (0-9); NEUT # 4.4 x10^3/uL (1.8-7.7); NEUT % 70 % (31-73); PLATELET COUNT 147 x10^3/uL (140-400); RED CELL DISTRIBUTION WIDTH 14.8 % (11.5-14.5); WHITE BLOOD COUNT 6.4 x10^3/uL (4.0-11.0)
[2020-04-01 07:27] LABS: CALCIUM 8.4 mg/dL (8.5-10.1); CREATININE 1.1 mg/dL (0.6-1.0); GFR 47.7; POTASSIUM 4.1 mmol/L (3.5-5.1)
[2020-04-01] MEDS: DRONEDARONE HCL 400 MG TABLET PO SCH ×2 (07:55→20:10)
[2020-04-01] MEDS ORDERED: CYCLOBENZAPRINE 10 MG TABLET. PO PRN (08:00)
[2020-04-01] MEDS ORDERED: HYDROcodone/APAP 5/325MG 1 TAB TABLET PO PRN (08:00)
[2020-04-01] MEDS: AMOXICILLIN 250 MG CAPSULE. PO SCH ×3 (08:12→20:10)
[2020-04-01] MEDS ORDERED: FUROSEMIDE 40 MG/4 ML VIAL. IVP ONE (08:30)
[2020-04-01] MEDS ORDERED: AMIODARONE HCL 200 MG TABLET. PO SCH (09:00)
--- NOTE | 2020-04-01 09:45 | HP ---
ADMIT DATE: 03/31/2020 CHIEF COMPLAINT AND HISTORY OF PRESENT ILLNESS: This 80-year-old white female was admitted because of increasing shortness of breath and tachycardia at home. Her [id number] is a nurse states she has not taken her medicines for the last 5 days or so. She does have a history of tachybrady syndrome and is normally on amiodarone at home. She was having nonsustained runs of ventricular tachycardia in the Emergency Room, was noted to have an ejection fraction of 40% and admitted to telemetry for Cardiology consultation as well as having some congestive heart failure clinically as well as hypoxemia with O2 sats in the 80s. She denied any exposure to COVID-19. PAST MEDICAL HISTORY: Remarkable for atrial fib as well as cardiomyopathy. PAST SURGICAL HISTORY: She has had a prior CABG, knee replacements. MEDICATIONS: Brought with the patient, listed on the computer have been addressed. ALLERGIES: SHE IS ALLERGIC TO TETANUS, OXAPROZIN, SULFA. SOCIAL HISTORY: She is a lifetime nonsmoker, nondrinker, does not use drugs. , lives at home with her . FAMILY HISTORY: Noncontributory. REVIEW OF SYSTEMS: Remarkable for her moving lots of urine output since admission but her breathing being much better than it was prior to admission. She denies any chest pain, lightheadedness. PHYSICAL EXAMINATION: GENERAL: She is well-developed, well-nourished white female, in no acute distress. VITAL SIGNS: Stable. She is afebrile. HEAD, EYES, EARS, NOSE AND THROAT: Unremarkable. NECK: Supple, without adenopathy or thyromegaly. CHEST: Reveals clear to auscultation. HEART: Regular rate and rhythm without S3, S4 or murmur. ABDOMEN: Soft, nontender, without hepatosplenomegaly or masses. EXTREMITIES: Without cyanosis, clubbing or edema. NEUROLOGIC: She is intact. LABORATORY DATA: Initial laboratory reveals CBC which is essentially unremarkable. Chemistry panel showing a BNP of 3223. Troponin is normal. BUN is 22, creatinine 1. Chest x-ray shows no acute cardiopulmonary process. Urinalysis is unremarkable. IMPRESSION: 1. Shortness of breath with hypoxic respiratory failure due to congestive heart failure. 2. Nonsustained ventricular tachycardia. 3. Cardiomyopathy. 4. Poor compliance with meds prior to admission. PLAN: Diuresis, cardiology consultation, antiarrhythmic, therapy per Cardiology. JEET BLOCK MD DR: LAURENCE/pamela JOB#: [id number] / [id number]
--- NOTE | 2020-04-01 09:53 | PDOC2 ---
ROSE FERRARA DRILLER OPERATOR 04/01/20 0953: CARDIAC CONSULT DATE OF CONSULT Date of Consult DATE: 04/01/20 TIME: 09:36 REASON FOR CONSULT Reason for Consult: VT REFERRING PHYSICIAN Referring Physician: Dr. Munoz SOURCE Source: Chart review, Patient HISTORY OF PRESENT ILLNESS HISTORY OF PRESENT ILLNESS This is an 80 yo female who presented secondary to shortness of breath over that last couple of days. Tele noted with wide complex rhythm in ED, which prompted this consult. IV amiodarone was initiated. She denies any dizziness, diaphoresis, palpitations, or nausea/vomiting. Family reports she has not been compliant with meds recently. No recent illness or fevers. PAST MEDICAL HISTORY Cardiovascular: AFIB, HTN, Hyperlipidemia, Aortic stenosis, Other (SSS) Musculoskeletal: Osteoarthritis Endocrine: Diabetes PAST SURGICAL HISTORY Past Surgical History: Pacemaker, Appendectomy, Cataract Removal, Total knee replacement (bilateral ), Tonsillectomy, Hysterectomy FAMILY HISTORY Family History: Diabetes SOCIAL HISTORY Social History Smoke: No ALCOHOL: rare Drugs: None Lives: with Family CURRENT MEDICATIONS CURRENT MEDICATIONS Current Medications Medications (Trade) Dose Ordered Sig/Obdulio Route PRN Reason Start Time Stop Time Status Last Admin Dose Admin Amiodarone HCl 150 mg/Dextrose 103 ml @ 618 mls/hr 1X ONCE IV 03/31/20 20:30 03/31/20 20:39 DC 03/31/20 20:32 Amiodarone HCl 450 mg/Dextrose 259 ml @ 34.533 mls/ hr CONT PRN IV AMIODARONE 03/31/20 20:15 04/01/20 05:27 DC 04/01/20 05:27 Furosemide (Lasix) 40 mg 1X ONCE IVP 03/31/20 21:00 03/31/20 21:01 DC 03/31/20 21:15 Acetaminophen (Tylenol) 650 mg PRN Q6HRS PRN PO MILD PAIN / TEMP > 100.3'F 04/01/20 06:30 04/01/20 08:04 DC 04/01/20 06:24 Dronedarone (Multaq) 400 mg BID PO 04/01/20 09:00 04/01/20 07:55 Cyclobenzaprine HCl (Flexeril) 10 mg PRN TID PRN PO low back pain 04/01/20 08:00 04/01/20 08:12 Diltiazem HCl (Cardizem 24hr Cd) 180 mg DAILY PO 04/01/20 09:00 04/01/20 08:12 Amoxicillin (Amoxil) 500 mg [id number] PO 04/01/20 09:00 04/01/20 08:12 Furosemide (Lasix) 40 mg 1X ONCE IVP 04/01/20 08:30 04/01/20 08:31 DC 04/01/20 08:12 ALLERGIES ALLERGIES: Coded Allergies: oxaprozin (Verified Allergy, Intermediate, itching, 01/10/19) tetanus and diphtheria toxoids (Verified Allergy, Intermediate, anaphalaxis, 01/08/19) Sulfa (Sulfonamide Antibiotics) (Verified Allergy, Mild, rash, 01/10/19) ROS Review of System 14 point ROS conducted with pertinent positives noted above in HPI PHYSICAL EXAM General: Alert, Oriented X3, Cooperative, No acute distress HEENT: Atraumatic Lungs: Other (on NC) Abdomen: Soft, No tenderness Extremities: No edema, Normal pulses Skin: No significant lesion Neuro: Normal speech, Sensation intact Psych/Mental Status: Mood NL MUSCULOSKELETAL: Osteoarthritic changes both hands VITALS/I&O VITALS/I&O: Vital Signs Date Time Temp Pulse Resp B/P (MAP) Pulse Ox O2 Delivery O2 Flow Rate FiO2 04/01/20 08:12 105 137/73 04/01/20 08:00 Nasal Cannula 3.0 04/01/20 07:00 98.3 20 93 98.3 I & O 03/31/20 03/31/20 04/01/20 15:00 23:00 07:00 Intake Total 228 ml Output Total 1000 ml 1050 ml Balance -772 ml -1050 ml LABS Lab: Laboratory Tests Test 03/31/20 19:36 03/31/20 20:05 04/01/20 06:15 04/01/20 07:09 White Blood Count 8.0 x10^3/uL (4.0-11.0) 6.4 x10^3/uL (4.0-11.0) Red Blood Count 4.62 x10^6/uL (3.50-5.40) 4.30 x10^6/uL (3.50-5.40) Hemoglobin 13.8 g/dL (12.0-15.5) 12.7 g/dL (12.0-15.5) Hematocrit 42.5 % (36.0-47.0) 39.3 % (36.0-47.0) Mean Corpuscular Volume 92 fL (79-100) 92 fL (79-100) Mean Corpuscular Hemoglobin 30 pg (25-35) 29 pg (25-35) Mean Corpuscular Hemoglobin Concent 33 g/dL (31-37) 32 g/dL (31-37) Red Cell Distribution Width 15.2 % (11.5-14.5) H 14.8 % (11.5-14.5) H Platelet Count 175 x10^3/uL (140-400) 147 x10^3/uL (140-400) Neutrophils (%) (Auto) 58 % (31-73) 70 % (31-73) Lymphocytes (%) (Auto) 29 % (24-48) 18 % (24-48) L Monocytes (%) (Auto) 10 % (0-9) H 10 % (0-9) H Eosinophils (%) (Auto) 2 % (0-3) 2 % (0-3) Basophils (%) (Auto) 1 % (0-3) 1 % (0-3) Neutrophils # (Auto) 4.6 x10^3/uL (1.8-7.7) 4.4 x10^3/uL (1.8-7.7) Lymphocytes # (Auto) 2.3 x10^3/uL (1.0-4.8) 1.1 x10^3/uL (1.0-4.8) Monocytes # (Auto) 0.8 x10^3/uL (0.0-1.1) 0.6 x10^3/uL (0.0-1.1) Eosinophils # (Auto) 0.1 x10^3/uL (0.0-0.7) 0.1 x10^3/uL (0.0-0.7) Basophils # (Auto) 0.1 x10^3/uL (0.0-0.2) 0.1 x10^3/uL (0.0-0.2) Sodium Level 142 mmol/L (136-145) 142 mmol/L (136-145) Potassium Level 4.3 mmol/L (3.5-5.1) 4.1 mmol/L (3.5-5.1) Chloride Level 105 mmol/L (98-107) 105 mmol/L (98-107) Carbon Dioxide Level 30 mmol/L (21-32) 31 mmol/L (21-32) Anion Gap 7 (6-14) 6 (6-14) Blood Urea Nitrogen 22 mg/dL (7-20) H 21 mg/dL (7-20) H Creatinine 1.0 mg/dL (0.6-1.0) 1.1 mg/dL (0.6-1.0) H Estimated GFR (Cockcroft-Gault) 53.2 47.7 BUN/Creatinine Ratio 22 (6-20) H Glucose Level 223 mg/dL (70-99) H 172 mg/dL (70-99) H Calcium Level 8.9 mg/dL (8.5-10.1) 8.4 mg/dL (8.5-10.1) L Magnesium Level 2.0 mg/dL (1.8-2.4) Total Bilirubin 0.3 mg/dL (0.2-1.0) Aspartate Amino Transferase (AST) 22 U/L (15-37) Alanine Aminotransferase (ALT) 30 U/L (14-59) Alkaline Phosphatase 86 U/L (46-116) Troponin I Quantitative < 0.017 ng/mL (0.000-0.055) DP-Rfy-E-Type Natriuretic Peptide 3223 pg/mL (0-449) H Total Protein 7.0 g/dL (6.4-8.2) Albumin 3.6 g/dL (3.4-5.0) Albumin/Globulin Ratio 1.1 (1.0-1.7) Urine Collection Type U cath Urine Color Yellow Urine Clarity Clear Urine pH 5.5 (<5.0-8.0) Urine Specific [place] 1.015 (1.000-1.030) Urine Protein Negative mg/dL (NEG-TRACE) Urine Glucose (UA) Negative mg/dL (NEG) Urine Ketones (Stick) Negative mg/dL (NEG) Urine Blood Negative (NEG) Urine Nitrite Negative (NEG) Urine Bilirubin Negative (NEG) Urine Urobilinogen Dipstick 0.2 mg/dL (0.2 mg/dL) Urine Leukocyte Esterase Negative (NEG) Urine RBC 0 /HPF (0-2) Urine WBC Occ /HPF (0-4) Urine Squamous Epithelial Cells Few /LPF Urine Transitional Epithelial Cells Occ /LPF Urine Amorphous Sediment Present /HPF Urine Bacteria 0 /HPF (0-FEW) Urine Hyaline Casts Few /HPF Urine Mucus Mod /LPF Glucose (Fingerstick) 182 mg/dL (70-99) H Laboratory Tests 03/31/20 19:36 04/01/20 06:15 Laboratory Tests 03/31/20 19:36 04/01/20 06:15 ASSESSMENT/PLAN ASSESSMENT/PLAN 1. Acute on chronic respiratory failure 2. Arrhythmia; concerns for NSVT in ED Amiodarone was initiated. Appears to be v-paced with underlying AFIB/flutter. Has not been compliant with home meds 3. PAFIB; 76% AFIB/flutter burden per device check 03/29/20. 1 ventricular high rate noted with longest lasting 36 minutes; appears to be AFIB/flutter with RVR. Multaq recently added 4. Tachy-rsiram, SSS s/p PPM (Mariano) 5. Mild acute on chronic systolic CHF with cardiomyopathy; Recent echo with LVEF 40-45%. S/p IV Lasix 5. CAD s/p CABG 2008 6. Hypertension; controlled 7. Hyperlipidemia 8. Diabetes, II 9. s/p bioprosthetic AVR. valve well seated and functioning well per recent echo Recommendations Discontinue Cardizem. Start Toprol given cardiomyopathy Multaq initiated for rhythm maintenance Discontinue Amiodarone gtt Xarelto for stroke prevention Oral Lasix therapy. Additional PRN Consider outpatient ischemic evaluation JOHNATHAN PURCELL MD 04/01/20 2342: CARDIAC CONSULT ASSESSMENT/PLAN ASSESSMENT/PLAN Pt. seen and examined. Agree with above [employer] note with following comments. Given recent echo with mild to moderate LV dysfunction and structural heart disease, options limited for antiarrhythmic therapy. Her wide complex rhythm is SVT with aberrancy rather than VT. Start amiodarone therapy and stop multaq. Supportive care. Will plan for outpt ischemic evaluation in the form of a stress test. Thanks. ROSE FERRARA APRN Apr 01, 2020 09:53 JOHNATHAN PURCELL MD Apr 01, 2020 23:42
--- NOTE | 2020-04-01 10:53 | NUR ---
SS following for discharge planning. SS reviewed pt chart and discussed with pt RN. Pt is from home with spouse and is currently requiring oxygen. COVID19 test pending. Pt on Amio drip and IV Lasix. Not ready. Per RN, pt has home oxygen. SS will continue to follow for discharge planning.
[2020-04-01] MEDS ORDERED: RIVAROXABAN 10 MG TABLET. PO SCH (17:00)
[2020-04-02 03:15] VITALS: BP 115/58
[2020-04-02 07:00] VITALS: BP 114/63
[2020-04-02] MEDS ORDERED: ANTI-COAG MONITOR BY PHARMACY. MC PRN (08:00)
[2020-04-02] MEDS ORDERED: METO50TA4 PO (08:07)
[2020-04-02 08:37] VITALS: BP 114/63
[2020-04-02] MEDS: AMOXICILLIN 250 MG CAPSULE. PO SCH (08:40)
[2020-04-02] MEDS ORDERED: AMIODARONE HCL 200 MG TABLET. PO SCH (09:00)
[2020-04-02] MEDS ORDERED: FUROSEMIDE 20 MG TABLET PO SCH (09:00)
[2020-04-02] MEDS ORDERED: METOPROLOL SUCC 24HR ER 50 MG TAB.ER.24H. PO SCH (09:00)
--- NOTE | 2020-04-02 09:30 | NUR ---
DISCHARGED PATIENT HOME. DISCHARGE INSTRUCTIONS GIVEN. PIV AND HEART MONITOR REMOVED. ESCORTED PATIENT OFF UNIT PER WHEELCHAIR INTO A PRIVATE VEHICLE.
--- NOTE | 2020-04-02 13:28 | DS ---
DATE OF DISCHARGE: PRIMARY DIAGNOSIS: Congestive heart failure. ADDITIONAL DIAGNOSES: Sick sinus syndrome with pacemaker, atrial fibrillation with wide QRS with a rapid ventricular response, mild cardiomyopathy with an ejection fraction of 40-45% and diabetes. CHIEF COMPLAINT AND HISTORY OF PRESENT ILLNESS: This 80-year-old white female admitted through the Emergency Room with tachycardia and felt to be possible V-tach and congestive heart failure. SUMMARY OF STAY: The patient was evaluated by Cardiology, felt this was AFib with a wide QRS, actually interrogated her pacemaker. Medication adjustments were done including IV Lasix where she diuresed well, her shortness of breath resolved and her hypoxia returned to her baseline of 2 L per nasal cannula. Multaq was stopped, amiodarone drip was initiated and continued at the time of discharge. Also, metoprolol was added to her regimen for rate control at the time of discharge and she was felt ready for dismissal. DISPOSITION: The patient is discharged to home. DIET: Low sodium, ADA diet. ACTIVITY: As tolerated. FOLLOWUP: Office in 1 week. DISCHARGE MEDICATIONS: Listed on the med rec and have been addressed. JEET BLOCK MD DR: LAURENCE/pamela JOB#: [id number] / [id number]
== END 2020-04-02 09:30 | disposition home or self-care (01) | DRG 291 ==
LOC: ER 19:26 → 2 SOUTH 20:49
PROVIDERS: ADMIT Family Medicine; ATTEND Family Medicine
PROC: 4B02XSZ Measurement of Cardiac Pacemaker, External Approach (ICD-10-PCS; principal; 2020-04-02)
DX: I11.0 Hypertensive heart disease with heart failure (principal); J96.21 Acute and chronic respiratory failure with hypoxia; I47.1 Supraventricular tachycardia; I48.92 Unspecified atrial flutter; I50.23 Acute on chronic systolic (congestive) heart failure; I42.9 Cardiomyopathy, unspecified; E11.9 Type 2 diabetes mellitus without complications; E78.5 Hyperlipidemia, unspecified; I25.10 Atherosclerotic heart disease of native coronary artery without angina pectoris; I35.0 Nonrheumatic aortic (valve) stenosis; I48.0 Paroxysmal atrial fibrillation; I49.5 Sick sinus syndrome; M19.90 Unspecified osteoarthritis, unspecified site; Z20.828 Contact with and (suspected) exposure to other viral communicable diseases; Z83.3 Family history of diabetes mellitus; Z90.710 Acquired absence of both cervix and uterus; Z91.14 Patient's other noncompliance with medication regimen; Z95.0 Presence of cardiac pacemaker; Z95.1 Presence of aortocoronary bypass graft; Z95.3 Presence of xenogenic heart valve; Z96.653 Presence of artificial knee joint, bilateral; Z88.2 Allergy status to sulfonamides; Z88.8 Allergy status to other drugs, medicaments and biological substances
CPT/HCPCS: 36415; 71045; 80048; 80053; 81001; 82962; 83735; 83880; 84484; 85025; 93005; J0282; J1940; J7060; U0003; G0378

== ENCOUNTER → 2020-05-09 | Outpatient (CLI) | payer MEDICARE, BC ==
[~2020-05-09] MED LIST changes: +AMOX500C PO; +CYCL10TA2 PO; +DILT180C29 PO; +FURO40TA4 PO; +HYDR-2759 PO; +METO-247 PO; +METO50TA4 PO; +RIVA15TA PO
== END ==
LOC: LAB 13:57
PROVIDERS: ATTEND Internal Medicine Cardiovascular Disease
DX: Z01.812 Encounter for preprocedural laboratory examination (principal); Z20.822 Contact with and (suspected) exposure to COVID-19
CPT/HCPCS: U0003

== ENCOUNTER 2020-05-13 08:52 | Day surgery (SDC) | payer MEDICARE, BC ==
[~2020-05-13 08:52] MED LIST changes: -METO-247 PO; -RIVA15TA PO
[2020-05-13] MEDS ORDERED: LIDOCAINE 2% VISCOUS 15 ML SOLUTION. SWSW ONE (09:15)
[2020-05-13] MEDS ORDERED: LIDOCAINE 2% TOPICAL JELLY 30GM TUBE. TP ONE (09:15)
[2020-05-13] MEDS ORDERED: BENZOCAINE ONE 20% MUCOSAL SPRAY. MM (09:15)
[2020-05-13 09:52] LABS: HEMATOCRIT 43.8 % (36.0-47.0); HEMOGLOBIN 14.2 g/dL (12.0-15.5); RED BLOOD COUNT 4.83 x10^6/uL (3.50-5.40); RED CELL DISTRIBUTION WIDTH 15.8 % (11.5-14.5); WHITE BLOOD COUNT 6.3 x10^3/uL (4.0-11.0)
[2020-05-13 09:57] LABS: CALCIUM 8.7 mg/dL (8.5-10.1); CREATININE 1.1 mg/dL (0.6-1.0); GFR 47.7; POTASSIUM 4.1 mmol/L (3.5-5.1)
[2020-05-13] MEDS ORDERED: IV RINGERS,LACTATED 1000ML 1,000 ML IV SCH (10:00)
[2020-05-13 10:03] LABS: PROTHROMBIN TIME PATIENT 14.1 SEC (11.7-14.0)
[2020-05-13] MEDS ORDERED: PROPOFOL 10 MG/ML (20ML) VIAL. IV ONE (10:37)
[2020-05-13] MEDS ORDERED: AMIODARONE 150 MG in IV DEXTROSE 5% 100ML 100 ML IV ONE (11:00)
--- NOTE | 2020-05-13 11:24 | EKG ---
[facility] [address] [place] [address] Test Date: 2020-05-13 Test Time: 11:18:41 Pat Name: ROSALINE JOVEL Department: Room: Gender: F Hogshead Roller: : 1940 Requested By: JOHNATHAN PURCELL Order Number: [id number] Reading MD: Johnathan Purcell MD Measurements Intervals [place] Rate: 60 P: 90 MS: 202 QRS: -15 QRSD: 162 T: 153 QT: 474 QTc: 479 Interpretive Statements SR LBBB/VPACING Electronically Signed On 05-13-2020 14:36:30 REHAB NURSE by Johnathan Purcell MD
--- NOTE | 2020-05-13 11:36 | EKG ---
[facility] [address] [place] [address] Test Date: 2020-05-13 Test Time: 09:12:50 Pat Name: ROSALINE JOVEL Department: Room: Gender: F Wire Preparation Machine Tender: [id number] : 1940 Requested By: JOHNATHAN PURCELL Order Number: [id number] Reading MD: Johnathan Purcell MD Measurements Intervals [place] Rate: 107 P: -90 [place]: 112 QRS: -21 QRSD: 162 T: 163 QT: 376 QTc: 508 Interpretive Statements ATRIAL FLUTTER WITH RVR Electronically Signed On 05-13-2020 14:36:18 METALLURGIST HELPER by Johnathan Purcell MD
[2020-05-13 12:03] VITALS: BP 113/45
--- NOTE | 2020-05-13 15:45 | CARD ---
MR#: [id number] Date of Study: 05/13/2020 Ordering Physician: JOHNATHAN PURCELL, Referring Physician: JOHNATHAN PURCELL Tech: Angy Browning RDCS APPROVED REPORT EXAM: Transesophageal echocardiogram with color flow Doppler and Synchronized Cardioversion. INDICATION Atrial Fibrillation Reason For Test : Rule out cardiac source of emboli. PROCEDURE After obtaining informed consent, patient underwent transesophageal echo in the PACU. Type of Sedation : General Anesthesia Sedation was administered by Oscar Rowe CRNA. Sedation was achieved with Propofol 60 mg intravenously. Transesophageal probe was inserted and advanced into esophagus by Johnathan Purcell MD. The NAYANA was performed without complications. Synchronized Cardioversion attempted: Successful Synchronized Cardioversion acheived with 200 Joules after 1 attempt(s). Rhythm following Synchronized Cardioversion: Normal Sinus Rhythm Throughout the procedure, the blood pressure, pulse oximetry, cardiac rhythm, and rate were monitored . The patient tolerated the procedure without adverse effects. Recovery from general anesthesia was une ventful and vital signs were stable. LEFT VENTRICLE The left ventricle is normal size. The left ventricular systolic function is mildly reduced. EF 45% T here is mild global hypokinesis. No left ventricle thrombus noted on this study. There is no left cristofer tricular aneurysm. RIGHT VENTRICLE The right ventricle is normal size. The right ventricular systolic function is normal. There is a pac emaker lead in the right ventricle. ATRIA The left atrium is moderately dilated. A pacemaker is seen in the right atrium consistent with histor y. The interatrial septum is intact with no evidence for an atrial septal defect or patent foramen ov jb as noted on 2-D or Doppler imaging. JEFF is not visualized, likely due to prior bypass AORTIC VALVE Doppler and Color Flow revealed no significant aortic regurgitation. There is no significant aortic v alvular stenosis. There is a bioprosthetic aortic valve prosthesis. The prosthetic aortic valve appea rs well seated. MITRAL VALVE The mitral valve is moderately thickened. There is no mitral valve stenosis. Doppler and Color-flow r evealed mild mitral regurgitation. TRICUSPID VALVE The tricuspid valve is normal in structure. Doppler and Color Flow revealed trace tricuspid regurgita tion. There is no tricuspid valve stenosis. PULMONIC VALVE The pulmonic valve is not well visualized. GREAT VESSELS The aortic root is normal in size. The IVC is normal in size and collapses >50% with inspiration. Critical Notification Critical Value: No <Conclusion> The left ventricular systolic function is mildly reduced. EF 45% There is mild global hypokinesis. There is a pacemaker lead in the right ventricle. JEFF is not visualized, likely due to prior bypass There is a bioprosthetic aortic valve prosthesis. The prosthetic aortic valve appears well seated. There is no significant aortic valvular stenosis. Successful CVN to SR Signed by : Johnathan Purcell, Electronically Approved : 05/13/2020 15:45:19
== END 2020-05-13 13:04 | disposition home or self-care (01) ==
LOC: SURG 08:52
PROVIDERS: ATTEND Internal Medicine Cardiovascular Disease
DX: I48.91 Unspecified atrial fibrillation (principal); I08.1 Rheumatic disorders of both mitral and tricuspid valves; I25.10 Atherosclerotic heart disease of native coronary artery without angina pectoris; I10 Essential (primary) hypertension; E78.00 Pure hypercholesterolemia, unspecified; M19.90 Unspecified osteoarthritis, unspecified site; E11.9 Type 2 diabetes mellitus without complications; Z90.710 Acquired absence of both cervix and uterus; Z79.899 Other long term (current) drug therapy; Z98.890 Other specified postprocedural states; Z95.4 Presence of other heart-valve replacement
CPT/HCPCS: 36415; 80048; 85027; 85610; 85730; 93005; 93312; 93325; J0282; J2704; J7060; 92960

== ENCOUNTER → 2020-07-29 | Outpatient (CLI) | payer MEDICARE, BC ==
[~2020-07-29] MED LIST changes: +REGADENOSON 0.4 MG/5 ML DISP.SYRIN. IV ONE
--- NOTE | 2020-07-29 10:28 | RAD ---
MR#: [id number] Date of Study: 07/29/2020 Ordering Physician: JOHNATHAN PURCELL, Referring Physician: JOHNATHAN PURCELL, Tech: Meño Elliott MBA, RDMS, RVT, RDCS, RTR APPROVED REPORT Patient Location: OUT-PATIENT Laterality:Bilateral Indications carotid disease Doppler Spectral Velocity Analysis Right Left pCCA 59/3 cm/spCCA 99/11 cm/s mCCA 74/13 cm/smCCA 82/13 cm/s dCCA 68/11 cm/sdCCA 88/15 cm/s Bulb 62/12 cm/sBulb 69/14 cm/s ECA 95/ cm/sECA 101/ cm/s pICA 58/13 cm/spICA 79/13 cm/s Reynold 56/14 cm/smICA 107/25 cm/s dICA 98/30 cm/sdICA 109/11 cm/s Vert. 75/ cm/sVert. 84/ cm/s Subcl. 168/ cm/sSubcl. 138/ cm/s ICA/CCA 1.32ICA/CCA 1.10 Findings Grayscale images of the bilateral carotid vessels demonstrates mild diffuse intimal hyperplasia and a therosclerosis. Based on spectral images and velocities there is overall 0 to less than 50% stenosis in the bilateral external visualized carotid vasculature. Normal vertebral antegrade velocities are noted. Normal subclavian velocities are noted per normal bilateral ICA to CCA ratios. Critical Notification Critical Value: No <Conclusion> 1. No significant extracranial carotid occlusive disease bilaterally. Signed by : Johnathan Purcell, Electronically Approved : 07/29/2020 10:28:13
--- NOTE | 2020-07-29 17:02 | CARD ---
MR#: [id number] Date of Study: 07/29/2020 Ordering Physician: JOHNATHAN PURCELL, Referring Physician: JOHNATHAN PURCELL, Tech: Madeline Amaro [facility] APPROVED REPORT EXAM: Two-dimensional and M-mode echocardiogram with Doppler and color Doppler. Other Information Quality : Technically LimitedAverageHR: 90bpm Rhythm : NSRTechnically limited study due to body habitus. INDICATION Aortic Valve Disease RISK FACTORS Hypertension Obesity Hyperlipidemia 2D DIMENSIONS RVDd4.5 (2.9-3.5cm)Left Atrium(2D)4.8 (1.6-4.0cm) IVSd2.3 (0.7-1.1cm)Aortic Root(2D)3.1 (2.0-3.7cm) LVDd4.4 (3.9-5.9cm)LVOT Diameter2.4 (1.8-2.4cm) PWd1.9 (0.7-1.1cm)LVDs3.0 (2.5-4.0cm) FS (%) 31.3 %SV52.8 ml LVEF(%)59.3 (>50%) Aortic Valve AoV Peak Akbar.336.1cm/sAoV VTI76.7cm AO Peak GR.45.2mmHgLVOT Peak Akbar.101.1cm/s AO Mean GR.22mmHgAVA (VMAX)1.33cm2 AI P 1/2 Gfqu363ri Mitral Valve MV E Yjqoibbl64.1cm/sMV DECEL TSWW478qm MV A Tnezsojt86.8cm/sE/A Ratio1.9 Tricuspid Valve TR P. Itmlltef050ik/sTR Peak Gr.27mmHg LEFT VENTRICLE The left ventricle is normal size. There is severe concentric left ventricular hypertrophy. The left ventricular systolic function is low normal. EF 50% There is mild global hypokinesis with septal jazmine on suggestive of conduction defect. Transmitral Doppler flow pattern is Grade II-pseudonormal filling dynamics. RIGHT VENTRICLE The right ventricle is normal size. There is normal right ventricular wall thickness. The right ventr icular systolic function is normal. ATRIA The left atrium is severely dilated. The right atrium size is normal. The interatrial septum is intac t with no evidence for an atrial septal defect or patent foramen ovale as noted on 2-D or Doppler janet ging. AORTIC VALVE Doppler and Color Flow revealed moderate aortic regurgitation. There is moderate aortic valve stenosi s with MG of 18 mm Hg. There is a bioprosthetic aortic valve prosthesis not well visualized. MITRAL VALVE The mitral valve is thickened but opens well. There is no evidence of mitral valve prolapse. There is no mitral valve stenosis. Doppler and Color-flow revealed mild mitral regurgitation. TRICUSPID VALVE The tricuspid valve is normal in structure and function. Doppler and Color Flow revealed trace tricus pid regurgitation. Estimated PAP 42 mmHg. There is no tricuspid valve stenosis. PULMONIC VALVE Doppler and Color Flow revealed no pulmonic valvular regurgitation. There is no pulmonic valvular annika nosis. GREAT VESSELS The aortic root is normal in size. The IVC is dilated and collapses <50% with inspiration. PERICARDIAL EFFUSION There is no evidence of significant pericardial effusion. Critical Notification Critical Value: No <Conclusion> The left ventricular systolic function is low normal. EF 50% There is mild global hypokinesis with septal motion suggestive of conduction defect. There is a bioprosthetic aortic valve prosthesis not well visualized. Doppler and Color Flow revealed moderate aortic regurgitation. There is moderate aortic valve stenosis with MG of 18 mm Hg. Consider NAYANA for further delineation of the aortic valve bioprosthesis. Signed by : Johnathan Purcell, Electronically Approved : 07/29/2020 17:01:58
--- NOTE | 2020-07-29 17:19 | RAD ---
MR#: [id number] Date of Study: 07/29/2020 Ordering Physician: JOHNATHAN LEDEZMA, Referring Physician: BAR NOGUERA Tech: RT Tunde GilR) (N) APPROVED REPORT Test Type: Pharmacological Stress Nurse/Tech: Cece Roman RN Test Indications: NSVT Cardiac History: 2013=CABG x2 and valve replacement, HTN, See EMR. Medications: See EMR. Medical History: See EMR. Resting EC% Paced Resting Heart Rate: 81 bpm Resting Blood Pressure: 180/63mmHg Pretest Chest Pain: No chest pain Nurse/Tech Notes Lungs CTA, Heart tones regular. Consent: The procedure was explained to the patient in lay terms. Informed consent was witnessed. Ryne eout was entered into [employer]. History and Stress Test performed by RT Tunde GilR) (N) Pharm. Details Pharmacologic stress testing was performed using 0.4mg per 5ml of regadenoson given intravenously ove r 7-10 seconds. Stress Symptoms Dyspnea POST EXERCISE Reason for Termination: Infusion complete Max HR: 60 bpm Max Blood Pressure: 198/58mmHg Blood Pressure response to exercise: Normal blood pressure response during stress. Heart Rate response to exercise: WNL Chest Pain: No. Arrhythmia: No. ST Change: No. INTERPRETATION Stress EKG Conclusion: Nondiagnostic EKG due to pacing artifact. Imaging Protocol IMAGE PROTOCOL: Rest Tc-99m/stress Tc-99m 1 day Rest: Stress: Viability: Radiopharm.Tc99m SpmgfupjeYe04b Sestamibi Abrb8qJp 26mCi Duration 13min. 13min. Img Date 07/29/2020 07/29/2020 Inj-Img Eksj18ucn. 60min. Rest Admin Site:IV - Left ForearmAdministrator:RT Brittney Gil)(N) Stress Admin Site: IV - Left ForearmAdministrator: RT Brittney Gil)(N) STRESS DATA End Diast. Vol.161.0mlLVEDV index BSA85.0ml End Syst. Vol.56.0mlLVESV index BSA30.0ml Myocardial Aveo972.0gEject. Kitkjxwp70.0% Stress Scores Regional WT1.00Summed WT11.00 Regional WM0.00Summed WM7.00 The rest and stress images show normal perfusion, normal contraction and thickening. LV Perf. Quant 17 Seg. SSS3.00 17 Seg. SRS8.00 17 Seg. SDS0.00 Stress Defect Extent (% LAD)6.30Rest Defect Extent (% LAD)5.00Rev. Defect Extent (% LAD)3.80 Stress Defect Extent (% LCX) 26.30Rest Defect Extent (% LCX)57.50Rev. Defect Extent (% LCX)0.00 Stress Defect Extent (% RCA)0.00Rest Defect Extent (% RCA)0.00Rev. Defect Extent (% RCA)0.00 Stress Defect Extent (% VIRGIL)7.20Rest Defect Extent (% VIRGIL)12.40Rev. Defect Extent (% VIRGIL)1.30 Other Information Quality:Good Risk Assessment: Low Risk Conclusion 1. Nondiagnostic EKG due to pacing artifact 2. Normal perfusion at stress/rest 3. Normal EF at > 60% 4. Low risk study overall. Signed by : Johnathan Ledezma, Electronically Approved : 07/29/2020 17:18:49
== END ==
LOC: NM 11:32
PROVIDERS: ATTEND Internal Medicine Cardiovascular Disease
DX: I08.0 Rheumatic disorders of both mitral and aortic valves (principal); I65.23 Occlusion and stenosis of bilateral carotid arteries; I77.9 Disorder of arteries and arterioles, unspecified; I47.2 Ventricular tachycardia; I10 Essential (primary) hypertension; Z95.4 Presence of other heart-valve replacement
CPT/HCPCS: 78452; 93017; 93306; 93880; A9500; J2785

== ENCOUNTER 2020-09-17 13:34 | Inpatient (IN) | payer MEDICARE, BC ==
[~2020-09-17] VITALS: Ht 160 cm; Wt 84.4 kg
[~2020-09-17 13:34] MED LIST changes: -REGADENOSON 0.4 MG/5 ML DISP.SYRIN. IV ONE
--- NOTE | 2020-09-17 14:07 | RAD ---
EXAM: Chest, single view. HISTORY: Chest pain. COMPARISON: 03/31/2020 FINDINGS: A frontal view of the chest obtained. There is stable interstitial prominence. There is no consolidation, pleural effusion or pneumothorax. There is a stable prominent cardiac silhouette and e vidence of prior median sternotomy. There is a cardiac pacemaker with leads overlying expected positi on. IMPRESSION: Stable chronic appearing interstitial changes and postoperative mediastinal changes. Electronically signed by: Wendy Chao MD (09/17/2020 2:05 PM) [id number]
[2020-09-17 14:42] LABS: BASO # 0.1 x10^3/uL (0.0-0.2); BASO % 1 % (0-3); EOS % 1 % (0-3); HEMATOCRIT 43.8 % (36.0-47.0); HEMOGLOBIN 14.5 g/dL (12.0-15.5); LYMPH # 1.6 x10^3/uL (1.0-4.8); LYMPH % 23 % (24-48); MEAN CORPUSCULAR HEMOGLOBIN 31 pg (25-35); MEAN CORPUSCULAR HGB CONC 33 g/dL (31-37); MEAN CORPUSCULAR VOLUME 95 fL (79-100); MONO # 0.8 x10^3/uL (0.0-1.1); MONO % 11 % (0-9); NEUT # 4.5 x10^3/uL (1.8-7.7); NEUT % 65 % (31-73); PLATELET COUNT 140 x10^3/uL (140-400); RED BLOOD COUNT 4.61 x10^6/uL (3.50-5.40); RED CELL DISTRIBUTION WIDTH 14.8 % (11.5-14.5)
[2020-09-17 14:52] LABS: CALCIUM 8.7 mg/dL (8.5-10.1); CREATININE 1.2 mg/dL (0.6-1.0); GFR 43.1; POTASSIUM 4.2 mmol/L (3.5-5.1)
[2020-09-17 14:58] LABS: ALBUMIN 3.7 g/dL (3.4-5.0); ALBUMIN/GLOBULIN RATIO 1.1 (1.0-1.7); MAGNESIUM 2.1 mg/dL (1.8-2.4); TOTAL BILIRUBIN 0.3 mg/dL (0.2-1.0)
[2020-09-17 15:06] LABS: CREATINE KINASE 70 U/L (26-192)
--- NOTE | 2020-09-17 15:06 | ED.ADGEN ---
Past Medical History Past Medical History: A-Fib, CAD, CHF, Other Additional Past Medical Histor: afib Past Surgical History: Appendectomy, Hysterectomy, Knee Replacement, Pacemaker, Other Additional Past Surgical Histo: bilat knees, cabgx3, bladder sx Smoking Status: Never Smoker Alcohol Use: None Drug Use: None General Adult EDM: Chief Complaint: SHORTNESS OF BREATH HPI: HPI: Patient is a 80 year old female, brought to the emergency department with concerns of shortness of breath over the last 2 weeks that is worse with any activity. Patient has a history of A. fib and states that she feels like she is in A. fib again. Patient reports that she has had a cough however states that this is chronic and has unchanged from her normal cough. She also reports generalized weakness. Patient denies any numbness, tingling, headache, vision changes, chest pain, back pain, nausea, vomiting, diarrhea, abdominal pain, or fever. She reports that her intensive care medicine specialist is Dr. Ledezma and her primary care doctor is . She currently denies any pain. Review of Systems: Review of Systems: Complete ROS is negative unless otherwise noted in HPI. Current Medications: Current Medications Medications (Trade) Dose Ordered Sig/Obdulio Start Time Stop Time Status Last Admin Dose Admin Diltiazem HCl (Cardizem Iv Push) 10 mg 1X ONCE 09/17/20 14:15 09/17/20 14:16 DC 09/17/20 15:13 10 MG Diltiazem HCl 125 mg/Sodium Chloride 125 ml @ 5 mls/hr CONT PRN 09/17/20 14:15 09/17/20 15:19 5 MLS/HR Metoprolol Succinate (Toprol Xl) 50 mg 1X ONCE 09/17/20 16:30 09/17/20 16:31 DC Allergies: Allergies: Allergies Coded Allergies Type Severity Reaction Last Updated Verified oxaprozin Allergy Intermediate itching 05/06/20 Yes tetanus and diphtheria toxoids Allergy Intermediate anaphalaxis 05/06/20 Yes Sulfa (Sulfonamide Antibiotics) Allergy Mild rash 05/06/20 Yes Physical Exam: PE: See Above Constitutional: Well developed, well nourished, no acute distress, non-toxic appearance. [] HENT: Normocephalic, atraumatic, bilateral external ears normal, nose normal. [] Eyes: PERRLA, EOMI, conjunctiva normal, no discharge. [] Neck: Normal range of motion, no stridor. [] Cardiovascular:Heart rate irregular tachycardic rhythm Lungs & Thorax: Respirations even and unlabored, no retractions, no respiratory distress, lungs CTA Abdomen: soft, no tenderness Skin: Warm, dry, no erythema, no rash. [] Extremities: No cyanosis, ROM intact, no edema. [] Neurologic: Alert and oriented X 3, normal motor, motor and sensory, no focal deficits noted. [] Psychologic: Affect normal, judgement normal, mood normal. [] Current Patient Data: Labs: Laboratory Tests Test 09/17/20 14:32 09/17/20 15:00 White Blood Count 7.0 x10^3/uL (4.0-11.0) Red Blood Count 4.61 x10^6/uL (3.50-5.40) Hemoglobin 14.5 g/dL (12.0-15.5) Hematocrit 43.8 % (36.0-47.0) Mean Corpuscular Volume 95 fL (79-100) Mean Corpuscular Hemoglobin 31 pg (25-35) Mean Corpuscular Hemoglobin Concent 33 g/dL (31-37) Red Cell Distribution Width 14.8 % (11.5-14.5) H Platelet Count 140 x10^3/uL (140-400) Neutrophils (%) (Auto) 65 % (31-73) Lymphocytes (%) (Auto) 23 % (24-48) L Monocytes (%) (Auto) 11 % (0-9) H Eosinophils (%) (Auto) 1 % (0-3) Basophils (%) (Auto) 1 % (0-3) Neutrophils # (Auto) 4.5 x10^3/uL (1.8-7.7) Lymphocytes # (Auto) 1.6 x10^3/uL (1.0-4.8) Monocytes # (Auto) 0.8 x10^3/uL (0.0-1.1) Eosinophils # (Auto) 0.0 x10^3/uL (0.0-0.7) Basophils # (Auto) 0.1 x10^3/uL (0.0-0.2) Sodium Level 142 mmol/L (136-145) Potassium Level 4.2 mmol/L (3.5-5.1) Chloride Level 108 mmol/L (98-107) H Carbon Dioxide Level 24 mmol/L (21-32) Anion Gap 10 (6-14) Blood Urea Nitrogen 25 mg/dL (7-20) H Creatinine 1.2 mg/dL (0.6-1.0) H Estimated GFR (Cockcroft-Gault) 43.1 BUN/Creatinine Ratio 21 (6-20) H Glucose Level 206 mg/dL (70-99) H Calcium Level 8.7 mg/dL (8.5-10.1) Magnesium Level 2.1 mg/dL (1.8-2.4) Total Bilirubin 0.3 mg/dL (0.2-1.0) Aspartate Amino Transferase (AST) 26 U/L (15-37) Alanine Aminotransferase (ALT) 27 U/L (14-59) Alkaline Phosphatase 82 U/L (46-116) Creatine Kinase 70 U/L (26-192) Creatine Kinase MB (Mass) 1.8 ng/mL (0.0-3.6) Creatine Kinase MB Relative Index % (0-4) Troponin I Quantitative < 0.017 ng/mL (0.000-0.055) ZU-Yrr-R-Type Natriuretic Peptide 1969 pg/mL (0-449) H Total Protein 7.0 g/dL (6.4-8.2) Albumin 3.7 g/dL (3.4-5.0) Albumin/Globulin Ratio 1.1 (1.0-1.7) Lipase 71 U/L (73-393) L Urine Collection Type Void Urine Color Yellow Urine Clarity Clear Urine pH 5.5 (<5.0-8.0) Urine Specific [place] 1.020 (1.000-1.030) Urine Protein Negative mg/dL (NEG-TRACE) Urine Glucose (UA) 100 mg/dL (NEG) Urine Ketones (Stick) Negative mg/dL (NEG) Urine Blood Negative (NEG) Urine Nitrite Positive (NEG) Urine Bilirubin Negative (NEG) Urine Urobilinogen Dipstick 0.2 mg/dL (0.2 mg/dL) Urine Leukocyte Esterase Trace (NEG) Urine RBC 0 /HPF (0-2) Urine WBC 1-4 /HPF (0-4) Urine Squamous Epithelial Cells Many /LPF Urine Bacteria Many /HPF (0-FEW) Urine Hyaline Casts Few /HPF Urine Mucus Slight /LPF Laboratory Tests 09/17/20 14:32 Laboratory Tests 09/17/20 14:32 Vital Signs: Vital Signs Date Time Temp Pulse Resp B/P (MAP) Pulse Ox O2 Delivery O2 Flow Rate FiO2 09/17/20 15:13 128 155/81 09/17/20 14:10 97.8 18 94 Room Air 97.8 EKG: EK-A. fib with wide complex tachycardia, rate 113, no STEMI, read by Dr. Alarcon Heart Score: C/O Chest Pain: No Risk Scores: Score 0 - 3: 2.5% MACE over next 6 weeks - Discharge Home Score 4 - 6: 20.3% MACE over next 6 weeks - Admit for Clinical Observation Score 7 - 10: 72.7% MACE over next 6 weeks - Early Invasive Strategies Radiology/Procedures: Radiology/Procedures: PROCEDURE: CHEST AP ONLY EXAM: Chest, single view. HISTORY: Chest pain. COMPARISON: 03/31/2020 FINDINGS: A frontal view of the chest obtained. There is stable interstitial prominence. There is no consolidation, pleural effusion or pneumothorax. There is a stable prominent cardiac silhouette and evidence of prior median sternotomy. There is a cardiac pacemaker with leads overlying expected position. IMPRESSION: Stable chronic appearing interstitial changes and postoperative mediastinal changes. Electronically signed by: Wendy Chao MD (09/17/2020 2:05 PM) [id number][] Course & Med Decision Making: Course & Med Decision Making Pertinent Labs and Imaging studies reviewed. (See chart for details) 1512-spoke with Dr. Smyth who is the admitting physician, and care was assumed following discussion of patient. Will admit patient for A. fib with RVR and consult cardiology. Patient's vital signs stable, heart rate is improving now in the 100s. Patient remains afebrile, appears nontoxic, respirations even and unlabored. Patient will be admitted to the PCU floor. Patient's case and plan of care also discussed with Dr. Alarcon 1517-I spoke with Dr. Lopez and advised of patient in the ER and need for cardiology consult he will have Camelia SENIOR SALES COMPENSATION ANALYST come evaluate the patient. 1609- Per Camelia SENIOR SALES COMPENSATION ANALYST place order for cardizem XR 50 mg x1 now and have nurse titrate patient off of cardizem [] [] Rickie Disclaimer: Rickie Disclaimer: This electronic medical record was generated, in whole or in part, using a voice recognition dictation system. Departure Departure Referrals: JEET SMYTH MD (PCP) AVI MACARIO APRN Sep 17, 2020 15:06
--- NOTE | 2020-09-17 15:32 | PDOC2 ---
ROSE FERRARA MARIA ESTHER 09/17/20 1532: CARDIAC CONSULT DATE OF CONSULT Date of Consult DATE: 09/17/20 TIME: 15:24 REASON FOR CONSULT Reason for Consult: AFIB with RVR REFERRING PHYSICIAN Referring Physician: Maru Mcguire APRN SOURCE Source: Chart review, Patient HISTORY OF PRESENT ILLNESS HISTORY OF PRESENT ILLNESS This is an 80 yo female who presented secondary to shortness of breath. Was noted in AFIB with RVR, which prompted this consult. Patient has a history of AFIB. Underwent successful cardioversion earlier this year. [place] really well in normal sinus rhythm. Unfortunately, began feeling very short of breath with exertion and experiencing palpitations and knew she was back in AFIB a couple of weeks ago. Symptoms persisted so she decided to come to the ED for further evaluation and treatment. Denies any recent fevers or illness. Reports compliance with medications. Had an episode at [facility] last week with very rapid heart rate and felt dizzy and had vision changes for a brief period. HR was in 150-170 range at that time. Initial EKG shows AFIB with RVR. IV Cardizem was administered and patient was started on Cardizem gtt. Patient presently ST with a rate of 104. PAST MEDICAL HISTORY Past Medical History Cardiovascular: AFIB, CAD, HTN, Hyperlipidemia, Aortic stenosis, Other (SSS) Musculoskeletal: Osteoarthritis Endocrine: Diabetes PAST SURGICAL HISTORY Past Surgical History Pacemaker, Appendectomy, Cataract Removal, Total knee replacement (bilateral ), Tonsillectomy, Hysterectomy, AVR, CABG FAMILY HISTORY Family History: Diabetes SOCIAL HISTORY Social History Smoke: No ALCOHOL: rare Drugs: None Lives: with Family CURRENT MEDICATIONS CURRENT MEDICATIONS Current Medications Medications (Trade) Dose Ordered Sig/Obdulio Route PRN Reason Start Time Stop Time Status Last Admin Dose Admin Diltiazem HCl 125 mg/Sodium Chloride 125 ml @ 5 mls/hr CONT PRN IV SEE I/O RECORD 09/17/20 14:15 09/17/20 15:19 Diltiazem HCl (Cardizem Iv Push) 10 mg 1X ONCE IVP 09/17/20 14:15 09/17/20 14:16 DC 09/17/20 15:13 ALLERGIES ALLERGIES: Coded Allergies: oxaprozin (Verified Allergy, Intermediate, itching, 05/06/20) tetanus and diphtheria toxoids (Verified Allergy, Intermediate, anaphalaxis, 05/06/20) Sulfa (Sulfonamide Antibiotics) (Verified Allergy, Mild, rash, 05/06/20) ROS Review of System 14 point ROS conducted with pertinent positives noted above in hPI PHYSICAL EXAM General: Alert, Oriented X3, Cooperative, No acute distress HEENT: Atraumatic Lungs: Other (diminished bases) Heart: Other (tele ST rate 104, 2/6 systolic murmur) Abdomen: Soft, Other Extremities: No edema, Normal pulses Skin: No significant lesion Neuro: Normal speech, Sensation intact Psych/Mental Status: Mental status NL, Mood NL MUSCULOSKELETAL: Osteoarthritic changes both hands VITALS/I&O VITALS/I&O: Vital Signs Date Time Temp Pulse Resp B/P (MAP) Pulse Ox O2 Delivery O2 Flow Rate FiO2 09/17/20 15:13 128 155/81 LABS Lab: Laboratory Tests Test 09/17/20 14:32 White Blood Count 7.0 x10^3/uL (4.0-11.0) Red Blood Count 4.61 x10^6/uL (3.50-5.40) Hemoglobin 14.5 g/dL (12.0-15.5) Hematocrit 43.8 % (36.0-47.0) Mean Corpuscular Volume 95 fL (79-100) Mean Corpuscular Hemoglobin 31 pg (25-35) Mean Corpuscular Hemoglobin Concent 33 g/dL (31-37) Red Cell Distribution Width 14.8 % (11.5-14.5) H Platelet Count 140 x10^3/uL (140-400) Neutrophils (%) (Auto) 65 % (31-73) Lymphocytes (%) (Auto) 23 % (24-48) L Monocytes (%) (Auto) 11 % (0-9) H Eosinophils (%) (Auto) 1 % (0-3) Basophils (%) (Auto) 1 % (0-3) Neutrophils # (Auto) 4.5 x10^3/uL (1.8-7.7) Lymphocytes # (Auto) 1.6 x10^3/uL (1.0-4.8) Monocytes # (Auto) 0.8 x10^3/uL (0.0-1.1) Eosinophils # (Auto) 0.0 x10^3/uL (0.0-0.7) Basophils # (Auto) 0.1 x10^3/uL (0.0-0.2) Sodium Level 142 mmol/L (136-145) Potassium Level 4.2 mmol/L (3.5-5.1) Chloride Level 108 mmol/L (98-107) H Carbon Dioxide Level 24 mmol/L (21-32) Anion Gap 10 (6-14) Blood Urea Nitrogen 25 mg/dL (7-20) H Creatinine 1.2 mg/dL (0.6-1.0) H Estimated GFR (Cockcroft-Gault) 43.1 BUN/Creatinine Ratio 21 (6-20) H Glucose Level 206 mg/dL (70-99) H Calcium Level 8.7 mg/dL (8.5-10.1) Magnesium Level 2.1 mg/dL (1.8-2.4) Total Bilirubin 0.3 mg/dL (0.2-1.0) Aspartate Amino Transferase (AST) 26 U/L (15-37) Alanine Aminotransferase (ALT) 27 U/L (14-59) Alkaline Phosphatase 82 U/L (46-116) Creatine Kinase 70 U/L (26-192) Creatine Kinase MB (Mass) 1.8 ng/mL (0.0-3.6) Creatine Kinase MB Relative Index % (0-4) Troponin I Quantitative < 0.017 ng/mL (0.000-0.055) WL-Esp-P-Type Natriuretic Peptide 1969 pg/mL (0-449) H Total Protein 7.0 g/dL (6.4-8.2) Albumin 3.7 g/dL (3.4-5.0) Albumin/Globulin Ratio 1.1 (1.0-1.7) Lipase 71 U/L (73-393) L Laboratory Tests 09/17/20 14:32 Laboratory Tests 09/17/20 14:32 ECHOCARDIOGRAM ECHOCARDIOGRAM NAYANA <Conclusion> The left ventricular systolic function is mildly reduced. EF 45% There is mild global hypokinesis. There is a pacemaker lead in the right ventricle. JEFF is not visualized, likely due to prior bypass There is a bioprosthetic aortic valve prosthesis. The prosthetic aortic valve appears well seated. There is no significant aortic valvular stenosis. Successful CVN to SR DATE: 05/13/20 [id number] <Conclusion> The left ventricular systolic function is low normal. EF 50% There is mild global hypokinesis with septal motion suggestive of conduction defect. There is a bioprosthetic aortic valve prosthesis not well visualized. Doppler and Color Flow revealed moderate aortic regurgitation. There is moderate aortic valve stenosis with MG of 18 mm Hg. Consider NAYANA for further delineation of the aortic valve bioprosthesis. DATE: 07/29/20 [id number] STRESS TEST STRESS TEST Conclusion 1. Nondiagnostic EKG due to pacing artifact 2. Normal perfusion at stress/rest 3. Normal EF at > 60% 4. Low risk study overall. DATE: 07/29/20 [id number] 0 ASSESSMENT/PLAN ASSESSMENT/PLAN 1. PAFIB s/p previous cardioversion; presenting with RVR; converted back to SR/ST s/p IV Cardizem. 2. Tachy-sriram, SSS s/p PPM ([place]) 3. Mild acute on chronic systolic CHF with cardiomyopathy; Recent echo with LVEF 50%, appears compensated 4. CAD s/p CABG 2008 5. Hypertension; controlled 6. Hyperlipidemia 7. Diabetes, II 8. s/p bioprosthetic AVR. valve well seated per NAYANA 06/02 9. UTI Recommendations Metoprolol XL 50mg x1 now. Titrate off Cardizem gtt Will increase metoprolol to 100mg daily Increase Amiodarone to 400mg daily x2 weeks Xarelto for stroke prophylaxis Continue oral Lasix. Additional PRN Resume secondary prevention Outpatient referral to EP for ablation therapy Supportive care JOHNATHAN PURCELL MD 09/18/20 1649: CARDIAC CONSULT ASSESSMENT/PLAN ASSESSMENT/PLAN Late entry for 09/17/20 The patient was seen and interviewed as well as examined at the bedside. The chart was reviewed. The case was discussed. Agree with the plan of care. ROSE FERRARA APRN Sep 17, 2020 15:32 JOHNATHAN PURCELL MD Sep 18, 2020 16:49
[2020-09-17 15:35] LABS: BILIRUBIN,URINE NEGATIVE (NEG); CLARITY,URINE CLEAR; COLOR,URINE YELLOW; NITRITE,URINE POSITIVE (NEG); PH,URINE 5.5 (<5.0-8.0); PROTEIN,URINE NEGATIVE (NEG-TRACE); UROBILINOGEN,URINE 0.2 mg/dL (0.2 mg/dL)
--- NOTE | 2020-09-17 15:42 | EKG ---
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
[2020-09-17 15:49] LABS: HYALINE CASTS, URINE FEW /HPF
[2020-09-17 15:50] LABS: BACTERIA,URINE MANY /HPF (0-FEW)
[2020-09-17 15:51] LABS: RBC,URINE 0 /HPF (0-2)
[2020-09-17] MEDS ORDERED: METOPROLOL SUCC 24HR ER 50 MG TAB.ER.24H. PO ONE (16:30)
[2020-09-17 18:00] VITALS: BP 132/75
[2020-09-17 22:36] VITALS: BP 111/54
--- NOTE | 2020-09-17 23:00 | NUR ---
Admit prior to shift change. Alert. Lives at home with . Reports c/o SOA. Was in A-fib RVR on admit to ER. HR controlled at 86bpm. Reports history of A-Fib with RVR with cardioversion in the past. Camelia MORGAN calls with orders to increase Amiodarone from 200mg daily to 400mg Daily and Metoprolol from 50mg daily to 100mg daily. Orientated to room and call light. Instructed to call for assist when out of bed. Reviewed POC such as changes in medication. Verbalized understanding. Resting in bed watching TV. Call light at hand.
[2020-09-18] VITALS (11 sets, daily range): BP systolic 117–145; BP diastolic 55–76
[2020-09-18] MEDS: FUROSEMIDE 20 MG TABLET PO SCH (08:12)
[2020-09-18] MEDS: METOPROLOL SUCC 24HR ER 50 MG TAB.ER.24H. PO SCH (08:13)
[2020-09-18] MEDS: AMIODARONE HCL 200 MG TABLET. PO SCH (08:13)
[2020-09-18] MEDS: ANTI-COAG MONITOR BY PHARMACY. MC PRN (08:53)
[2020-09-18] MEDS ORDERED: METOPROLOL SUCC 24HR ER 50 MG TAB.ER.24H. PO SCH (09:00)
--- NOTE | 2020-09-18 10:03 | EKG ---
[facility] [address] [place] [address] Test Date: 2020-09-18 Test Time: 10:03:49 Pat Name: ROSALINE JOVEL Department: Room: 200 1 Gender: F Bleach Packer: : 1940 Requested By: TORY LI Order Number: [id number] Reading MD: Measurements Intervals [place] Rate: 80 P: 0 MN: 188 QRS: 18 QRSD: 210 T: -163 QT: 456 QTc: 530 Interpretive Statements SINUS RHYTHM NON SPECIFIC INTRAVENTRICULAR BLOCK QRS(T) CONTOUR ABNORMALITY CONSISTENT WITH ANTERIOR INFARCT POSSIBLY RECENT ABNORMAL ECG RI6.01 Compared to ECG 09/17/2020 13:47:06 Sinus tachycardia no longer present Left-axis deviation no longer present Myocardial infarct finding still present
--- NOTE | 2020-09-18 10:05 | NUR ---
SS following for discharge planning. SS reviewed pt chart and discussed with pt RN. Pt is from home with spouse and is currently on room air. Cardiology consulted. Medications being adjusted. Pt having cardioversion today. SS will continue to follow for discharge planning.
[2020-09-18] MEDS ORDERED: AMIODARONE HCL 200 MG TABLET. PO ONE (11:00)
[2020-09-18] MEDS ORDERED: LIDOCAINE 2% PF 5 ML VIAL. ONE (16:27)
[2020-09-18] MEDS ORDERED: PROPOFOL 10 MG/ML (20ML) VIAL. IV ONE (16:27)
[2020-09-18] MEDS: IV RINGERS,LACTATED 1000ML 1,000 ML IV SCH (16:30)
[2020-09-18] MEDS ORDERED: RIVAROXABAN 15 MG TABLET. PO SCH (17:00)
--- NOTE | 2020-09-18 17:16 | EKG ---
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
[2020-09-18] MEDS ORDERED: ATORVASTATIN CALCIUM 40 MG TABLET. PO SCH (21:00)
--- NOTE | 2020-09-18 22:39 | HP ---
ADMIT DATE: 09/17/2020 ADMISSION HISTORY AND PHYSICAL CHIEF COMPLAINT AND HISTORY OF PRESENT ILLNESS: This 80-year-old white female is well known to me, follow up in the office. The patient presented to the emergency room on the day of admission with shortness of breath, was found to be in AFib with rapid ventricular response, had an elevated BNP and admitted ____ with a Cardizem drip for treatment of same and cardiac evaluations. She does have a history of AFib. She has had prior cardioversion. PAST MEDICAL HISTORY: Remarkable for history of sick sinus syndrome, aortic stenosis status post aortic valve replacement, hyperlipidemia, coronary artery disease with bypass, hypertension, osteoarthritis, diabetes. PAST SURGICAL HISTORY: Remarkable for CABG, aortic valve replacement, appendectomy, cataract removal, bilateral total knee replacements, tonsillectomy, hysterectomy. MEDICATIONS: Brought with the patient, listed on the computer and have been addressed. ALLERGIES: SHE IS ALLERGIC TO SULFA, OXAPROZIN, AND TETANUS AND DIPHTHERIA TOXOIDS. SOCIAL HISTORY: She is a nonsmoker, nondrinker, does not use drugs. , lives at home with her . FAMILY HISTORY: Noncontributory. REVIEW OF SYSTEMS: As mentioned above. PHYSICAL EXAMINATION: GENERAL: She is well-developed, well-nourished white female who feels much better by the time of my exam. VITAL SIGNS: Heart rate is slowed in to the 100 range. HEAD, EYES, EARS, NOSE AND THROAT: Unremarkable. NECK: Supple, without adenopathy or thyromegaly. CHEST: Clear to auscultation and percussion. HEART: Slightly irregular without S3, S4 or murmur. ABDOMEN: Soft, nontender, without hepatosplenomegaly or mass. EXTREMITIES: Without cyanosis, clubbing or edema. NEUROLOGIC: She is intact. LABORATORY DATA: Initial labs are remarkable for an unremarkable CBC. A creatinine of 1.2. A BNP of 1969 and normal troponin. Normal lipase. Essentially normal urine. She is COVID negative. IMPRESSION: Atrial fibrillation with rapid ventricular response, symptomatic, with shortness of breath and some congestive heart failure, tachycardia-bradycardia, sick sinus syndrome with pacemaker placement, mild [id number] congestive heart failure, coronary artery disease, hyperlipidemia, diabetes, hypertension, status post aortic valve replacement with bioprosthetic valve. PLAN: Cardiology consultation, rate control. Plans to follow. BAA/SUB DR: Vicenta TID: [id number]
[2020-09-19 02:58] VITALS: BP 104/51
[2020-09-19] MEDS: IV RINGERS,LACTATED 1000ML 1,000 ML IV SCH (05:23)
[2020-09-19 07:00] VITALS: BP 125/58
[2020-09-19] MEDS: FUROSEMIDE 20 MG TABLET PO SCH (08:11)
[2020-09-19] MEDS: METOPROLOL SUCC 24HR ER 50 MG TAB.ER.24H. PO SCH (08:12)
[2020-09-19] MEDS: AMIODARONE HCL 200 MG TABLET. PO SCH (08:12)
[2020-09-19] MEDS: ANTI-COAG MONITOR BY PHARMACY. MC PRN (09:10)
--- NOTE | 2020-09-19 09:37 | PDOC4 ---
Procedure Note Procedure: Cardioversion, external with general anesthesia Indications: afib Complications: No acute complications. Procedural Details: After appropriate informed consent general anesthesia was administered by the anesthesia service and approximately 20 mL of propofol was given. Please see anesthesia records for details. After adequate sedation the patient underwent synchronized cardioversion with 200 J. Precardioversion the rhythm was atrial fibrillation with a controlled ventricular response and post cardioversion p atient had an atrially paced rhythm with normal ventricular response. No acute complications noted. The patient recovered from anesthesia well and was transported back to her room in stable condition. Conclusions: 1. Successful external cardioversion for symptomatic atrial fibrillation JOHNATHAN PURCELL MD Sep 19, 2020 09:37
[2020-09-19 11:00] VITALS: BP 114/56
--- NOTE | 2020-09-19 11:44 | NUR ---
SS following up with discharge planning. SS reviewed pt chart and discussed with pt RN. Pt is currently on room air. Pt had Cardioversion on 09/18/2020. Probable discharge to home with self care today. SS will continue to follow for discharge planning.
--- NOTE | 2020-09-19 13:13 | PDOC ---
CARDIOLOGY PROGRESS NOTE SUBJECTIVE: No new issues. Denies any chest pain or dyspnea. Slept well. Ambulating ok. OBJECTIVE: Vital Signs/I&O: Vital Signs Date Time Temp Pulse Resp B/P (MAP) Pulse Ox O2 Delivery O2 Flow Rate FiO2 09/19/20 11:00 98.2 61 17 114/56 (75) 91 Room Air 98.2 09/18/20 17:10 2 I & O 09/18/20 09/18/20 09/19/20 15:00 23:00 07:00 Intake Total 300 ml 280 ml 100 ml Output Total 75 ml Balance 300 ml 280 ml 25 ml Objective: GEN.: No apparent distress. Alert and oriented. HEENT: Head is normocephalic, atraumatic NECK: Supple. LUNGS: Clear to auscultation. HEART: RRR, S1, S2 present. Peripheral pulses intact ABDOMEN: Soft, nontender. Positive bowel sounds. EXTREMITIES: Without any cyanosis. NEUROLOGIC: Normal speech, normal tone PSYCHIATRIC: Normal affect, normal mood. SKIN: No ulcerations CURRENT MEDICATIONS: amiodarone 400mg daily Xarelto 15mg daily Metoprolol XL 100 mg daily Atorvastatin 40mg daily DIAGNOSTIC TESTING: Tele unremarkable. ASSESSMENT: 1. Afib with RVR s/p successful CVN 2. HTN 3. CAD s/p CABG - stable 4. SSS s/p pacemaker PLAN: 1. Continue present meds. Ok to DC home today. Will f/u with EP in a few weeks and our office in 3months. Thanks Justicifation of Admission Dx: Justifications for Admission: Justification of Admission Dx: N/A JOHNATHAN PURCELL MD Sep 19, 2020 13:13
[2020-09-19] MEDS ORDERED: RIVA15TA PO (14:34)
[2020-09-19] MEDS ORDERED: METO-247 PO (14:35)
[2020-09-19 14:54] VITALS: BP 130/56
--- NOTE | 2020-09-19 15:00 | NUR ---
Discharge Note: ROSALINE JOVEL Discharge instructions and discharge home medications reviewed with Patient and a copy given. All questions have been answered and understanding verbalized. The following instructions and handouts were given: electrical cardioversion Patient discharged to home with spouse via wheelchair.
--- NOTE | 2020-09-20 01:07 | PN ---
DATE: 09/19/2020 SUBJECTIVE: This 80-year-old white female remains hospitalized with AFib with mild congestive heart failure and rapid ventricular response. She is back in a paced rhythm with rate of 60 after cardioversion. She feels back to her baseline with no further shortness of breath or symptomatology. The sand hauler talked to her about going for ablation out at [address] [place] [address] at some point in the near future. I would anticipate Cardiology may feel she is ready for discharge later today, but do not have that word yet. OBJECTIVE: VITAL SIGNS: Stable. She is afebrile. Pulse 60. CHEST: Clear. HEART: Regular. ABDOMEN: Benign. EXTREMITIES: No significant edema. IMPRESSION: 1. Atrial fibrillation with rapid ventricular response with cardioversion back to regular rhythm, paced. Congestive heart failure, mild, with symptomatology resolved. 2. Pacemaker placement. 3. Hypertension. 4. Diabetes mellitus. PLAN: Continue present care with further plans per Cardiology. ULISES/YG DR: Vicenta TID: [id number]
== END 2020-09-19 15:05 | disposition home or self-care (01) | DRG 308 ==
LOC: ER 13:34 → ED HOLD 15:12 → 2 NORTH 18:00
PROVIDERS: ADMIT Family Medicine; ATTEND Family Medicine
PROC: 5A2204Z Restoration of Cardiac Rhythm, Single (ICD-10-PCS; principal; 2020-09-17)
DX: I48.0 Paroxysmal atrial fibrillation (principal); I50.23 Acute on chronic systolic (congestive) heart failure; N39.0 Urinary tract infection, site not specified; I11.0 Hypertensive heart disease with heart failure; I42.9 Cardiomyopathy, unspecified; E11.9 Type 2 diabetes mellitus without complications; E78.5 Hyperlipidemia, unspecified; I25.10 Atherosclerotic heart disease of native coronary artery without angina pectoris; I35.0 Nonrheumatic aortic (valve) stenosis; Z83.3 Family history of diabetes mellitus; Z90.49 Acquired absence of other specified parts of digestive tract; Z90.710 Acquired absence of both cervix and uterus; Z95.0 Presence of cardiac pacemaker; Z95.1 Presence of aortocoronary bypass graft; Z95.3 Presence of xenogenic heart valve; Z96.653 Presence of artificial knee joint, bilateral; M19.90 Unspecified osteoarthritis, unspecified site; Z88.2 Allergy status to sulfonamides; Z88.8 Allergy status to other drugs, medicaments and biological substances; Z20.822 Contact with and (suspected) exposure to COVID-19
CPT/HCPCS: 36415; 71045; 80053; 81001; 82553; 83690; 83735; 83880; 84484; 85025; 87077; 87086; 87186; 92960; 93005; 96365; 96376; J2704; J3490; J7120; U0003; U0005; 99285-25; G0378

== ENCOUNTER → 2020-11-21 | Outpatient (CLI) | payer MEDICARE, BC ==
[~2020-11-21] MED LIST changes: +METO-247 PO; +RIVA15TA PO
[2020-11-21 14:54] VITALS: BP 126/76
[2020-11-21 15:02] VITALS: BP 123/67
--- NOTE | 2020-11-21 15:07 | NUR ---
Patient's pacemaker adjusted by [employer] sales representative publications, vital signs stable throughout study. No problems noted.
[2020-11-21 15:09] VITALS: BP 125/57
[2020-11-21 15:14] VITALS: BP 126/66
--- NOTE | 2020-11-21 16:40 | RAD ---
MR LUMBAR SPINE WO [id number] Date: 11/21/2020 3:33 PM Indication: low back pain, falls Comparison: None. Technique: Multi-planar multi-weighted magnetic resonance imaging of the lumbar spine was performed w ithout intravenous contrast using the standard lumbar spine protocol. FINDINGS: L4 compression deformity with 20 percent loss of vertebral body height. Edema and fracture cleft rocio g the superior endplate. No significant osseous retropulsion. 15 mm anterolisthesis at L5-S1 due to bilateral L5 pars defects, with osseous fusion across the L5-S1 disc space. Trace retrolisthesis at L1-2 and L2-3. Moderate multilevel degenerative disc desiccation and disc height loss. Fatty degenerative endplate changes at T11-12. The conus terminates at a normal level. No abnormal signal is seen within the visualized distal spina l cord. No clumping of intrathecal nerve roots. 3.3 cm simple cyst in the right pelvis, likely benign. T12-L1: No disc bulge. No facet arthropathy. No significant spinal stenosis or neural foraminal narro wing. L1-L2: Disc bulge. Mild facet arthropathy. No significant spinal stenosis or neural foraminal narrowi ng. L2-L3: Disc bulge. Moderate facet arthropathy. Mild spinal stenosis and lateral recess narrowing. Sev ere right and moderate left neural foraminal narrowing. L3-L4: Disc bulge. Mild to moderate facet arthropathy. No significant spinal stenosis or neural bowen inal narrowing. L4-L5: Disc bulge. Moderate facet arthropathy. No significant spinal stenosis. Mild right and moderat e left neural foraminal narrowing. L5-S1: Anterolisthesis with uncovering of the disc. Mild spinal canal stenosis. Moderate right and se lola left neural foraminal narrowing. IMPRESSION: 1. Acute to subacute L4 compression deformity with 20 percent height loss. No significant osseous ret ropulsion. 2. Moderate lumbar spondylosis, detailed level by level above. 3. Grade 2 anterolisthesis at L5-S1 due to bilateral L5 pars defects. Electronically signed by: Jaden Holly MD (11/21/2020 4:38 PM) [facility]
== END ==
LOC: MRI 14:30
PROVIDERS: ATTEND Family Medicine
DX: M47.816 Spondylosis without myelopathy or radiculopathy, lumbar region (principal); M43.17 Spondylolisthesis, lumbosacral region; M43.8X6 Other specified deforming dorsopathies, lumbar region; M48.061 Spinal stenosis, lumbar region without neurogenic claudication
CPT/HCPCS: 72148

== ENCOUNTER 2020-12-04 06:56 | Outpatient (CLI) | payer MEDICARE, BC ==
[~2020-12-04] VITALS: Ht 160 cm; Wt 84.1 kg
[2020-12-04] VITALS (10 sets, daily range): BP systolic 144–174; BP diastolic 59–81
[2020-12-04] MEDS ORDERED: ASPI-886 PO (08:05)
[2020-12-04] MEDS ORDERED: HYDR-2761 PO (08:05)
[2020-12-04 08:06] LABS: BASO % 0 % (0-3); EOS # 0.1 x10^3/uL (0.0-0.7); EOS % 2 % (0-3); HEMATOCRIT 42.6 % (36.0-47.0); HEMOGLOBIN 13.8 g/dL (12.0-15.5); LYMPH # 1.2 x10^3/uL (1.0-4.8); LYMPH % 27 % (24-48); MEAN CORPUSCULAR HEMOGLOBIN 31 pg (25-35); MEAN CORPUSCULAR HGB CONC 33 g/dL (31-37); MEAN CORPUSCULAR VOLUME 96 fL (79-100); MONO # 0.6 x10^3/uL (0.0-1.1); MONO % 15 % (0-9); NEUT # 2.4 x10^3/uL (1.8-7.7); NEUT % 56 % (31-73); PLATELET COUNT 148 x10^3/uL (140-400); RED BLOOD COUNT 4.46 x10^6/uL (3.50-5.40); RED CELL DISTRIBUTION WIDTH 16.1 % (11.5-14.5); WHITE BLOOD COUNT 4.3 x10^3/uL (4.0-11.0)
[2020-12-04] MEDS ORDERED: LIDOCAINE WITH 8.4% SOD BICARB 3 ML DISP.SYRIN. ONE (08:08)
[2020-12-04 08:12] LABS: CALCIUM 8.7 mg/dL (8.5-10.1); CREATININE 0.9 mg/dL (0.6-1.0); GFR 60.1
[2020-12-04] MEDS ORDERED: IOHEXOL 240 MG/ML 50ML VIAL. ONE (08:48)
[2020-12-04] MEDS ORDERED: MIDAZOLAM HCL/PF 2 MG/2 ML VIAL. ONE (08:51)
[2020-12-04] MEDS ORDERED: fentaNYL PF VIAL 100 MCG/2 ML VIAL ONE (08:51)
[2020-12-04] MEDS ORDERED: MIDAZOLAM HCL/PF 2 MG/2 ML VIAL. IV ONE (09:15)
[2020-12-04] MEDS ORDERED: fentaNYL PF VIAL 100 MCG/2 ML VIAL IV ONE (09:15)
[2020-12-04] MEDS ORDERED: IOHEXOL 240 MG/ML 50ML VIAL. IJ ONE (09:15)
[2020-12-04] MEDS ORDERED: LIDOCAINE WITH 8.4% SOD BICARB 3 ML DISP.SYRIN. IJ ONE (09:15)
--- NOTE | 2020-12-04 12:41 | NUR ---
Discharge Note: ROSALINE JOVEL Discharge instructions and discharge home medications reviewed with Patient and a copy given. All questions have been answered and understanding verbalized. The following instructions and handouts were given: adult moderate sedation and kyphoplasty Discontinued lines and drains: Peripheral IV intact. Patient discharged to Home or Self Care withSpousevia Wheelchair
--- NOTE | 2020-12-06 08:30 | RAD ---
Fluoroscopic guided L2 kyphoplasty. Clinical Indication: 80-year-old female with a pathologic compression fracture at L2 secondary to bon e osteopenia/osteoporosis with severe pain, limiting activities of daily living, which is refractory to conservative treatment measures Consent: The procedure was explained in its entirety to the patient or the patients designated repres entative by a member of the treatment team, including a discussion of the risks, benefits and commonl y accepted alternatives to the procedure, as well as the expected consequences of no therapy whatsoev er. Discussion of the risks included, but was not limited to, those that are most frequent and thos e that are rare but possibly severe or life-threatening, as well as the possibility of unforeseen com plications. A timeout procedure was performed. The patient was prepped and draped using maximum sterile technique , including the use of: Current guideline approved cutaneous antisepsis, a large sterile sheet to est ablish a sterile field. Additionally the deskidding machine operator wore a hat, mask, sterile gloves, a sterile gown du ring the procedure as well as practiced acceptable hand hygiene prior to placing the line. Lidocaine was used for local anesthesia. Fluoroscopic imaging redemonstrates a compression deformity of the L2 vertebra. 1% lidocaine was admi nistered for local anesthesia.Using a left sided unilateral approach, a trocar needle was advanced in to L2 vertebral body. A kyphoplasty balloon was deployed in the central vertebral body under fluorosc opic guidance. A cement delivery cannula was advanced to the vertebral body and cement was carefully administered under biplane fluoroscopy. When an adequate cavity had been formed by the ballon it was deflated and removed through the coaxial needle. Following the cement injections, the all needles were removed,, manual pressure was held, and sterile dressings were applied. The patient tolerated the procedure well without immediate complication. Total fluoroscopy time 7 minutes Dose area product 61 [place] centimeter squared Sedation: The procedure was performed under conscious sedation including continuous cardiopulmonary m onitoring via a dedicated sedation nurse. [id number]-ft-[id number] sedation time: 29 minutes Impression: Fluoroscopically guided kyphoplasty, L2 Electronically signed by: Hemant Coats MD (12/06/2020 8:28 AM) [id number]
== END 2020-12-04 12:45 | disposition home or self-care (01) ==
LOC: INTRAD 06:56
PROVIDERS: ATTEND Family Medicine
DX: S32.010A Wedge compression fracture of first lumbar vertebra, initial encounter for closed fracture (principal); I10 Essential (primary) hypertension; I25.10 Atherosclerotic heart disease of native coronary artery without angina pectoris; E78.00 Pure hypercholesterolemia, unspecified; I48.91 Unspecified atrial fibrillation; M19.90 Unspecified osteoarthritis, unspecified site; K21.9 Gastro-esophageal reflux disease without esophagitis; E11.9 Type 2 diabetes mellitus without complications; Z90.710 Acquired absence of both cervix and uterus; Z95.1 Presence of aortocoronary bypass graft; Z98.49 Cataract extraction status, unspecified eye; Z96.653 Presence of artificial knee joint, bilateral; Z98.890 Other specified postprocedural states; X58.XXXA Exposure to other specified factors, initial encounter; Y93.89 Activity, other specified; Y92.89 Other specified places as the place of occurrence of the external cause
CPT/HCPCS: 22514; 36415; 80048; 85025; 85610; 99152; 99153; C1713; J0690; J2250; J3010; J3490; Q9966

== ENCOUNTER → 2021-07-18 | Outpatient (CLI) | payer MEDICARE ==
[2020-12-04 12:05] VITALS: BP 174/81
[~2021-07-18] MED LIST changes: +AMIO200T53 PO; -AMIO200T6 PO; +ASPI-886 PO; +CYCL10TA19 PO; -CYCL10TA2 PO; +HYDR-2761 PO
--- NOTE | 2021-07-18 18:22 | CARD ---
MR#: [id number] Date of Study: 07/18/2021 Ordering Physician: JOHNATHAN PURCELL, Referring Physician: JOHNATHAN PURCELL, Tech: Madeline Amaro [facility] APPROVED REPORT EXAM: Two-dimensional and M-mode echocardiogram with Doppler and color Doppler. Other Information Quality : GoodHR: 60bpm Rhythm : NSR INDICATION RISK FACTORS Hypertension Obesity Hyperlipidemia Diabetes 2D DIMENSIONS RVDd3.4 (2.9-3.5cm)Left Atrium(2D)4.8 (1.6-4.0cm) IVSd1.6 (0.7-1.1cm)Aortic Root(2D)3.0 (2.0-3.7cm) LVDd4.8 (3.9-5.9cm)LVOT Diameter2.0 (1.8-2.4cm) PWd1.5 (0.7-1.1cm)LVDs3.1 (2.5-4.0cm) FS (%) 36.4 %SV72.7 ml LVEF(%)66.1 (>50%) Aortic Valve AoV Peak Akbar.351.2cm/sAoV VTI75.5cm AO Peak GR.49.3mmHgLVOT Peak Akbar.128.7cm/s AO Mean GR.26mmHgAVA (VMAX)1.20cm2 AI P 1/2 [id number] Mitral Valve MV E Usvbtzsg55.5cm/sMV DECEL [id number] MV A Cchjqnmu84.5cm/sE/A Ratio1.5 Pulmonary Valve PV Peak Nwuynyxr04.3cm/s Tricuspid Valve TR P. Trsjtqis184cc/sTR Peak Gr.37mmHg LEFT VENTRICLE The left ventricle is normal size. There is mild to moderate concentric left ventricular hypertrophy. The left ventricular systolic function is normal. Estimated ejection fraction 55%. Septal motion rod ggestive of postoperative state. The left ventricular diastolic function and filling is normal for ag e. RIGHT VENTRICLE The right ventricle is normal size. There is normal right ventricular wall thickness. The right ventr icular systolic function is normal. ATRIA The left atrium is severely dilated. The right atrium size is normal. The interatrial septum is intac t with no evidence for an atrial septal defect or patent foramen ovale as noted on 2-D or Doppler janet ging. AORTIC VALVE Doppler and Color Flow revealed moderate aortic regurgitation. There is a bioprosthetic aortic valve prosthesis. MITRAL VALVE The mitral valve is calcified but opens well. Mitral annular calcification is mild. There is no evide nce of mitral valve prolapse. There is no mitral valve stenosis. Doppler and Color-flow revealed mild mitral regurgitation. TRICUSPID VALVE The tricuspid valve is normal in structure and function. Doppler and Color Flow revealed mild tricusp id regurgitation. Estimated PAP 40 mmHg. There is no tricuspid valve stenosis. PULMONIC VALVE The pulmonary valve is normal in structure and function. Doppler and Color Flow revealed trace pulmon ic valvular regurgitation. GREAT VESSELS The aortic root is normal in size. The ascending aorta is normal in size. The IVC is normal in size a nd collapses >50% with inspiration. PERICARDIAL EFFUSION There is no evidence of significant pericardial effusion. Critical Notification Critical Value: No <Conclusion> The left ventricular systolic function is normal. Estimated ejection fraction 55%. Bioprosthetic aortic valve appears well seated. 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 Moderate aortic regurgitation probably contributing to increased gradients. Mild mitral regurgitation. Mild tricuspid regurgitation. Estimated PAP 40 mmHg. There is no evidence of significant pericardial effusion. Signed by : Vimal Lopez, Electronically Approved : 07/18/2021 18:22:45
== END ==
LOC: ECHO 08:52
PROVIDERS: ATTEND Internal Medicine Cardiovascular Disease
DX: I08.3 Combined rheumatic disorders of mitral, aortic and tricuspid valves (principal); Z95.4 Presence of other heart-valve replacement
CPT/HCPCS: 93306; C8929